=== PATIENT | female | born 1950 | race African-American/Black ===

== ENCOUNTER 2020-01-05 11:09 | Outpatient (REF) | payer MEDICARE, MEDICAID, SELFPAY ==
[2020-01-05 13:47] LABS: Hematocrit 37.3 % (37-47); Mean Corpuscular HGB Conc 32.2 g/dl (31.0-35.0); Mean Corpuscular Hemoglobin 29.9 pg (27.0-33.0); Mean Platelet Volume 9.4 fL (9.4-12.3); Platelet Count 224 X10*3/uL (160-400); Red Blood Count 4.01 X10*6/uL (4.20-5.50); Red Cell Distribution Width 13.2 % (11.0-16.0); White Blood Count 3.9 X10*3/uL (4.8-10.8)
[2020-01-05 14:23] LABS: Alanine Aminotransferase 25 U/L (0-31); Albumin Level 4.8 g/dL (3.5-5.0); Alkaline Phosphatase 67 U/L (39-117); Anion Gap 16 (12-20); Aspartate Amino Transferase 25 U/L (5-31); Bilirubin Direct < 0.2 mg/dL (0.0-0.5); Bilirubin Total 0.2 mg/dL (0.0-1.0); Blood Urea Nitrogen 22 mg/dL (9-16); Calcium 10.4 mg/dL (8.4-10.2); Carbon Dioxide 27 mmol/L (22-29); Chloride 100 mmol/L (96-108); Cholesterol 165 mg/dL; Estimated Glomerular Filt Rate 57; Glucose Random 80 mg/dL (60-115); HDL Cholesterol 37 mg/dL; LDL Cholesterol Calculated 85 mg/dl; Potassium 4.5 mmol/l (3.3-5.1); Sodium 138 mmol/L (135-145); Total Protein 8.1 g/dL (6.5-8.0); Triglycerides 218 mg/dL
[2020-01-05 14:53] LABS: Estimated Average Glucose 157 mg/dL; Hemoglobin A1c % 7.1 %
== END 2020-01-05 11:10 | disposition home or self-care (01) ==
LOC: HO.10HDL 11:09
PROVIDERS: Visit Provider Internal Medicine
DX: E11.42 Type 2 diabetes mellitus with diabetic polyneuropathy (principal); E78.00 Pure hypercholesterolemia, unspecified; I50.20 Unspecified systolic (congestive) heart failure
CPT/HCPCS: 36415; 80048; 80061; 80076; 83036; 85027

== ENCOUNTER → 2020-03-28 08:12 | Outpatient (REF) | payer MEDICARE, MEDICAID, SELFPAY ==
--- NOTE | 2020-03-28 08:30 | CA_ITS ---
Transthoracic Echocardiogram Patient (Last, First, Middle): Mihaela Erazo T Gender: Female Date of : 1950 Age: 69 Procedure Date: 03/28/2020 Procedure Type: Transthoracic Echocardiogram Location: OP Height: 157.48 cm Weight: 51.71 kg BSA: 1.51 m2 Heart Rate: bpm BP: 128 / 68 mmHg Aerodynamics Professor: Referring MD: Narinder Kramer MD Bait Painter: Kirk Carmona MD Symptoms: I25.5 ISCHEMIC CARDIOMYOPATHY Study Quality: Fair ECG Rhythm: Sinus Conclusions: - 1. Severe LV systolic dysfunction with LVEF of 10-15% with regional wall motion of the in the LAD territory consistent with prior infarction with impaired relaxation filling pattern 2. Normal cardiac valvular Doppler 3. Normal RV systolic pressure 4. No pericardial effusion Findings Left Ventricle Normal left ventricular cavity size. There is normal left ventricular wall thickness. The left ventricular systolic function is severely decreased. The visually estimated ejection fraction is between 10-15%. There is evidence of regional wall motion abnormalities. Spectral Doppler is indicative of an impaired relaxation filling pattern. E/E prime ratio is between 8 and 15 consistent with indeterminate filling pressures. Wall Motion Rest Echo Findings The basal inferoseptal segment is hypokinetic. The anteroseptal wall, the apical anterior, apical inferior, mid anterior, apical lateral, and mid inferoseptal segments are akinetic. The apex segment is dyskinetic. All other scored wall segments showed normal motion. Right Ventricle Normal right ventricular cavity size and systolic function. There is an ICD wire seen in the right ventricle. Atria Both atria are normal in size. There is no evidence of interatrial shunt. Aortic Valve The aortic valve structure and function is likely normal. There is no aortic valve stenosis. There is no aortic valve regurgitation. Mitral Valve There is mild anterior and posterior mitral leaflet thickening. There is trace mitral valve regurgitation. There is no mitral valve stenosis. Pulmonic Valve The pulmonic valve was not well visualized. Tricuspid Valve Likely normal tricuspid valve structure and function. There is mild tricuspid valve regurgitation. The right ventricular systolic pressure is normal. The right ventricular systolic pressure is 26 mmHg. There is no evidence of pulmonary hypertension. Great Vessels All visible segments of the aorta are normal in size. The pulmonary artery was not well visualized. Venous The inferior vena cava is normal in size and collapses greater than 50% with inspiration. Pericardium/Pleural There is no evidence of pericardial effusion. Prior Study Comparison No significant change compared to prior study dated: 11/07/2018. Measurements 2D Linear Measurements IVSd: 0.90 0.6-0.9/0.6-1.0 cm LVIDd: 5.01 3.9-5.3/4.2-5.9 cm LVIDd Index: 3.32 2.4-3.2/2.2-3.1 cm/m2 LVIDs: 4.44 2.0-3.6 cm LVPWd: 0.77 0.7-1.1 cm Ao Root: 2.90 2.1-3.5 cm LA Diam: 3.80 2.7-3.8/3.0-4.0 cm LAIDs Index: 2.52 1.5-2.3 cm/m2 LV Mass: 178.66 67-162/88-224 g LV Mass Index: 118.32 43-95/49-115 g/m2 LVOT Diam: 2.10 3.0+(-)1.3 cm Mitral Valve MV Pk E: 0.38 MV PK A: 0.90 MV Decel Time: 190.00 E/A: 0.40 E'Lateral: 13.70 E'Medial: 2.90 E/E' Med: 13.20 E/E' Lat: 2.80 PHT: 56.00 MVA PHT: 3.93 Decel Snyder: 2.02 Aortic Valve AoV Pk Thony: 1.43 AoV Mn Thony: 1.04 AoV VTI: 0.33 AoV Pk Grad: 8.00 Aov Mn Grad: 5.00 RASHIDA Cont.VTI: 2.13 LVOT LVOT Pk Thony: 0.92 LVOT Mn Thony: 0.53 LVOT VTI: 0.20 LVOT Pk Grad: 3.00 LVOT Mn Grad: 1.00 LVOT Diam: 2.10 LVOT Area: 3.46 Diastolic Function MV Pk E: 0.38 MV Pk A: 0.90 E/A: 0.40 E'Medial: 2.90 E/E' Med: 13.20 E' Laterial: 13.70 E/E' Lat: 2.80 Tricuspid Valve TR Pk Thony: 2.38 TR Pk Grad: 23.00 RA Press: 3.00 RVSP: 26.00 Great Vessels Aorta Ao Root-2D: 2.90 2.0-3.7 cm Pulmonary Valve PV Pk Thony: 0.98 Peak PV Grad: 4.00 Updated in Other Vendor System with Status of Final Kirk Carmona MD electronically signed on 03/28/2020 6:01:21 PM with status of Final
== END ==
LOC: HO.CARD 08:12
PROVIDERS: Visit Provider Internal Medicine
DX: I25.5 Ischemic cardiomyopathy (principal)
CPT/HCPCS: 93306

== ENCOUNTER → 2020-04-11 13:37 | Outpatient (BNVA) | payer MEDICARE, MEDICAID, SELFPAY | PROVIDERS: PCP Internal Medicine; Referring Provider Internal Medicine; Visit Provider Internal Medicine | DX: Z76.89 Persons encountering health services in other specified circumstances (principal) | CPT/HCPCS: Q3014 ==

== ENCOUNTER 2020-05-12 08:48 | Outpatient (REF) | payer MEDICARE, MEDICAID, SELFPAY ==
--- NOTE | ~2020-05-12 | MM_ITS ---
EXAMINATION: MM SCREENING DIGITAL BREAST TOMOSYNTHESIS, BILATERAL CLINICAL INFORMATION: Screening. Asymptomatic. The lifetime risk of breast cancer based on the Tyrer-Cuzick Model is 3.5%. COMPARISON: Mammography: May 07, 2019 and studies dating back to January 21, 2012 TECHNIQUE: Digital breast tomosynthesis is performed in both the craniocaudal and mediolateral oblique views along with computer-aided detection (CAD). Synthesized 2D images are generated from the tomosynthesis. FINDINGS: There are scattered areas of fibroglandular density (ACR BI-RADS breast composition Category b). There are no significant masses, abnormal calcifications, or other abnormalities. MM/MM tomosynthesis screening BI IMPRESSION: There are no significant changes from prior study. ASSESSMENT: BI-RADS 1: Negative RECOMMENDATION: Routine annual mammography screening. This patient's information was entered into a reminder system with a target due date for their next mammogram.
== END 2020-05-12 08:49 | disposition home or self-care (01) ==
LOC: HO.MAMMO 08:48
PROVIDERS: PCP Internal Medicine; Visit Provider Internal Medicine
DX: Z12.31 Encounter for screening mammogram for malignant neoplasm of breast (principal)
CPT/HCPCS: 77063; 77067

== ENCOUNTER → 2020-09-12 13:06 | Outpatient (BNVA) | payer MEDICARE, MEDICAID, SELFPAY | PROVIDERS: PCP Internal Medicine; Referring Provider Internal Medicine; Visit Provider Internal Medicine | DX: Z45.02 Encounter for adjustment and management of automatic implantable cardiac defibrillator (principal); I25.5 Ischemic cardiomyopathy; I25.10 Atherosclerotic heart disease of native coronary artery without angina pectoris; I10 Essential (primary) hypertension; E11.8 Type 2 diabetes mellitus with unspecified complications | CPT/HCPCS: 93005; 99212 ==

== ENCOUNTER 2020-09-21 07:34 | Outpatient (REF) | payer MEDICARE, MEDICAID, SELFPAY ==
[2020-09-21 10:15] LABS: Hematocrit 37.6 % (37-47); Mean Corpuscular HGB Conc 31.9 g/dl (31.0-35.0); Mean Corpuscular Hemoglobin 29.1 pg (27.0-33.0); Mean Platelet Volume 9.4 fL (9.4-12.3); Platelet Count 231 X10*3/uL (160-400); Red Blood Count 4.13 X10*6/uL (4.20-5.50); Red Cell Distribution Width 12.6 % (11.0-16.0); White Blood Count 3.9 X10*3/uL (4.8-10.8)
[2020-09-21 10:18] LABS: Estimated Average Glucose 177 mg/dL; Hemoglobin A1c % 7.8 %
[2020-09-21 10:40] LABS: Alanine Aminotransferase 32 U/L (0-31); Albumin Level 4.7 g/dL (3.5-5.0); Alkaline Phosphatase 67 U/L (39-117); Anion Gap 14 (12-20); Aspartate Amino Transferase 29 U/L (5-31); Bilirubin Direct 0.2 mg/dL (0.0-0.5); Bilirubin Total 0.5 mg/dL (0.0-1.0); Blood Urea Nitrogen 16 mg/dL (9-16); Calcium 10.2 mg/dL (8.4-10.2); Carbon Dioxide 25 mmol/L (22-29); Chloride 103 mmol/L (96-108); Cholesterol 95 mg/dL; Estimated Glomerular Filt Rate 53; Glucose Random 124 mg/dL (60-115); HDL Cholesterol 29 mg/dL; LDL Cholesterol Calculated 42 mg/dl; Potassium 4.4 mmol/L (3.3-5.1); Sodium 138 mmol/L (135-145); Total Protein 7.9 g/dL (6.5-8.0); Triglycerides 122 mg/dL
[2020-09-21 10:57] LABS: Thyroid Stimulating Hormone 0.97 uIU/mL (0.32-4.0)
[2020-09-21 11:24] LABS: Folate > 20.0 ng/mL (> or = 4.0); Vitamin B12 > 2000 pg/mL (200-900)
[2020-09-24 19:12] LABS: Vitamin D 25-OH, D2 <4 ng/mL; Vitamin D 25-OH, D3 38 ng/mL; Vitamin D 25-OH, Total 38 ng/mL (30-100)
== END 2020-09-21 07:35 | disposition home or self-care (01) ==
LOC: HO.10HDL 07:34
PROVIDERS: Visit Provider Internal Medicine
DX: E11.42 Type 2 diabetes mellitus with diabetic polyneuropathy (principal); I25.10 Atherosclerotic heart disease of native coronary artery without angina pectoris
CPT/HCPCS: 36415; 80048; 80061; 80076; 82306; 82607; 82746; 83036; 84443; 85027

== ENCOUNTER 2020-10-04 07:38 | Outpatient (REF) | payer MEDICARE, MEDICAID, SELFPAY ==
[2020-10-04 10:45] LABS: Alanine Aminotransferase 27 U/L (0-31); Albumin Level 4.6 g/dL (3.5-5.0); Alkaline Phosphatase 67 U/L (39-117); Aspartate Amino Transferase 27 U/L (5-31); Bilirubin Direct < 0.2 mg/dL (0.0-0.5); Bilirubin Total 0.4 mg/dL (0.0-1.0); Cholesterol 90 mg/dL; HDL Cholesterol 37 mg/dL; LDL Cholesterol Calculated 37 mg/dl; Total Protein 7.8 g/dL (6.5-8.0); Triglycerides 80 mg/dL
== END 2020-10-04 07:39 | disposition home or self-care (01) ==
LOC: HO.10HDL 07:38
PROVIDERS: Visit Provider Internal Medicine
DX: I25.10 Atherosclerotic heart disease of native coronary artery without angina pectoris (principal)
CPT/HCPCS: 36415; 80061; 80076

== ENCOUNTER → 2021-02-22 09:13 | Outpatient (BNVA) | payer MEDICARE, MEDICAID, SELFPAY | PROVIDERS: PCP Internal Medicine; Referring Provider Internal Medicine; Visit Provider Internal Medicine | DX: I25.5 Ischemic cardiomyopathy (principal); I25.10 Atherosclerotic heart disease of native coronary artery without angina pectoris; I10 Essential (primary) hypertension; E11.8 Type 2 diabetes mellitus with unspecified complications; Z95.810 Presence of automatic (implantable) cardiac defibrillator | CPT/HCPCS: 99212 ==

== ENCOUNTER → 2021-03-01 09:15 | Outpatient (BNVA) | payer MEDICARE, MEDICAID, SELFPAY | PROVIDERS: Referring Provider Internal Medicine; Visit Provider Nurse Practitioner Family | DX: Z12.11 Encounter for screening for malignant neoplasm of colon (principal); I25.10 Atherosclerotic heart disease of native coronary artery without angina pectoris | CPT/HCPCS: 99202 ==

== ENCOUNTER 2021-04-03 08:40 | Outpatient (REF) | payer MEDICARE, MEDICAID, SELFPAY ==
--- NOTE | ~2021-04-03 | XR_ITS ---
EXAMINATION: XR KNEES BILATERAL STANDING XR KNEE RIGHT CLINICAL INFORMATION: Pain COMPARISON: None TECHNIQUE: AP standing view both knees Right knee, sunrise and lateral views FINDINGS: AP STANDING VIEW OF BOTH KNEES At the left knee, there is mild narrowing of lateral tibiofemoral joint space. Osteophytes are present at tibiofemoral compartments and there is a subchondral cyst at the medial aspect of the medial tibial plateau. At the right knee, there is mild loss of lateral tibiofemoral joint space. Marginal osteophytes are present at the medial tibiofemoral compartment. There are atherosclerotic calcifications of bilateral femoral, popliteal and lower leg vessels. RIGHT KNEE, SUNRISE AND LATERAL VIEWS Trace knee joint effusion is present. Small osteophytes of patellofemoral and tibial femoral compartments. Patella is properly located within the trochlear groove. 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 * Mild tricompartmental osteoarthritis of the RIGHT knee.
--- NOTE | ~2021-04-03 | XR_ITS ---
EXAMINATION: XR KNEES BILATERAL STANDING XR KNEE RIGHT CLINICAL INFORMATION: Pain COMPARISON: None TECHNIQUE: AP standing view both knees Right knee, sunrise and lateral views FINDINGS: AP STANDING VIEW OF BOTH KNEES At the left knee, there is mild narrowing of lateral tibiofemoral joint space. Osteophytes are present at tibiofemoral compartments and there is a subchondral cyst at the medial aspect of the medial tibial plateau. At the right knee, there is mild loss of lateral tibiofemoral joint space. Marginal osteophytes are present at the medial tibiofemoral compartment. There are atherosclerotic calcifications of bilateral femoral, popliteal and lower leg vessels. RIGHT KNEE, SUNRISE AND LATERAL VIEWS Trace knee joint effusion is present. Small osteophytes of patellofemoral and tibial femoral compartments. Patella is properly located within the trochlear groove. 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 * Mild tricompartmental osteoarthritis of the RIGHT knee.
== END 2021-04-03 08:41 | disposition home or self-care (01) ==
LOC: HO.HOSX 08:40
PROVIDERS: Visit Provider Orthopaedic Surgery
DX: M17.11 Unilateral primary osteoarthritis, right knee (principal); E11.9 Type 2 diabetes mellitus without complications; Z95.810 Presence of automatic (implantable) cardiac defibrillator
CPT/HCPCS: 73560; 73565; 99202

== ENCOUNTER → 2021-04-06 14:08 | Outpatient (BNVA) | payer MEDICARE, MEDICAID, SELFPAY | PROVIDERS: PCP Internal Medicine; Visit Provider Orthopaedic Surgery | DX: M16.11 Unilateral primary osteoarthritis, right hip (principal); M17.11 Unilateral primary osteoarthritis, right knee; E11.42 Type 2 diabetes mellitus with diabetic polyneuropathy; I25.10 Atherosclerotic heart disease of native coronary artery without angina pectoris | CPT/HCPCS: 20610; 99212; J1100 ==

== ENCOUNTER → 2021-04-28 10:44 | Outpatient (BNVA) | payer MEDICARE, MEDICAID, SELFPAY | PROVIDERS: PCP Internal Medicine; Visit Provider Orthopaedic Surgery | DX: E11.42 Type 2 diabetes mellitus with diabetic polyneuropathy (principal); I50.20 Unspecified systolic (congestive) heart failure; M16.11 Unilateral primary osteoarthritis, right hip; M17.11 Unilateral primary osteoarthritis, right knee | CPT/HCPCS: 99212 ==

== ENCOUNTER 2021-05-15 07:40 | Outpatient (REF) | payer MEDICARE, MEDICAID, SELFPAY ==
--- NOTE | ~2021-05-15 | MM_ITS ---
EXAMINATION: MM SCREENING DIGITAL BREAST TOMOSYNTHESIS, BILATERAL CLINICAL INFORMATION: Screening. Asymptomatic. The lifetime risk of breast cancer based on the Tyrer-Cuzick Model is 3%. COMPARISON: Mammography: 05/12/2020, 05/07/2019, 05/01/2018 TECHNIQUE: Digital breast tomosynthesis is performed in both the craniocaudal and mediolateral oblique views along with computer-aided detection (CAD). Synthesized 2D images are generated from the tomosynthesis. FINDINGS: There are scattered areas of fibroglandular density (ACR BI-RADS breast composition Category b). There are no significant masses, abnormal calcifications, or other abnormalities. Parenchymal pattern is similar to prior studies. There is a pacemaker generator overlying and partly obscuring posterior left axilla on MLO view. There are 2 incidental intramammary nodes again seen upper outer quadrant left breast. A dermal lesion overlies upper right breast on MLO view. No significant changes. MM/MM tomosynthesis screening BI IMPRESSION: No mammographic evidence of malignancy. ASSESSMENT: BI-RADS 2: Benign RECOMMENDATION: Routine annual mammography screening. This patient's information was entered into a reminder system with a target due date for their next mammogram.
== END 2021-05-15 07:41 | disposition home or self-care (01) ==
LOC: HO.MAMMO 07:40
PROVIDERS: PCP Internal Medicine; Visit Provider Internal Medicine
DX: Z12.31 Encounter for screening mammogram for malignant neoplasm of breast (principal)
CPT/HCPCS: 77063; 77067

== ENCOUNTER 2021-06-28 10:20 | Outpatient (REF) | payer MEDICARE, MEDICAID, SELFPAY ==
[2021-06-28 13:00] LABS: Hematocrit 38.9 % (37.0-47.0); Hemoglobin 12.3 g/dl (12.0-16.0); Mean Corpuscular HGB Conc 31.6 g/dl (31.0-35.0); Mean Corpuscular Hemoglobin 29.3 pg (27.0-33.0); Mean Corpuscular Volume 92.6 fL (80.0-98.0); Mean Platelet Volume 9.5 fL (9.4-12.3); Platelet Count 222 X10*3/uL (160-400); Red Cell Distribution Width 13.1 % (11.0-16.0); White Blood Count 4.1 X10*3/uL (4.8-10.8)
[2021-06-28 13:15] LABS: Alanine Aminotransferase 31 U/L (0-31); Albumin Level 4.6 g/dL (3.5-5.0); Alkaline Phosphatase 76 U/L (39-117); Anion Gap 15 (12-20); Aspartate Amino Transferase 27 U/L (5-31); Bilirubin Direct < 0.2 mg/dL (0.0-0.5); Bilirubin Total 0.3 mg/dL (0.0-1.0); Blood Urea Nitrogen 19 mg/dL (9-16); Calcium 10.5 mg/dL (8.4-10.2); Carbon Dioxide 28 mmol/L (22-29); Chloride 99 mmol/L (96-108); Cholesterol 108 mg/dL; Estimated Glomerular Filt Rate 50; Glucose Random 167 mg/dL (60-115); HDL Cholesterol 37 mg/dL; LDL Cholesterol Calculated 37 mg/dl; Potassium 4.7 mmol/L (3.3-5.1); Sodium 137 mmol/L (135-145); Total Protein 7.8 g/dL (6.5-8.0); Triglycerides 173 mg/dL
[2021-06-28 13:39] LABS: Creatinine Urine 56.21 mg/dL; Microalbum/Creatinine Ratio Ur 8.8 ug/mg cr
[2021-06-28 13:39] LABS: Thyroid Stimulating Hormone 1.15 uIU/mL (0.32-4.0)
[2021-06-28 13:56] LABS: Estimated Average Glucose 163 mg/dL; Hemoglobin A1c % 7.3 %
== END 2021-06-28 10:21 | disposition home or self-care (01) ==
LOC: HO.10HDL 10:20
PROVIDERS: Visit Provider Internal Medicine
DX: E11.42 Type 2 diabetes mellitus with diabetic polyneuropathy (principal); M16.11 Unilateral primary osteoarthritis, right hip
CPT/HCPCS: 36415; 80048; 80061; 80076; 82043; 83036; 84443; 85027

== ENCOUNTER → 2021-07-05 10:57 | Outpatient (BNVA) | payer MEDICARE, MEDICAID, SELFPAY | PROVIDERS: PCP Internal Medicine; Visit Provider Anesthesiology | DX: M16.11 Unilateral primary osteoarthritis, right hip (principal); M17.11 Unilateral primary osteoarthritis, right knee; I50.20 Unspecified systolic (congestive) heart failure; E11.42 Type 2 diabetes mellitus with diabetic polyneuropathy | CPT/HCPCS: 99202 ==

== ENCOUNTER 2021-07-27 07:15 | Outpatient (REF) | payer MEDICARE, MEDICAID, SELFPAY ==
--- NOTE | ~2021-07-27 | XR_ITS ---
EXAMINATION: XR PELVIS CLINICAL INFORMATION: Pain in unspecified hip. COMPARISON: Right hip x-rays of 09/29/2018. TECHNIQUE: AP view of the pelvis. FINDINGS: Severe osteoarthritic changes in the right hip are again noted with interval worsening compared to previous x-rays of 09/29/2018. There is near-complete obliteration of the hip joint space with probable partial fusion. Deformity of the acetabular and femoral articular surfaces with significant irregularity and subarticular sclerotic and cystic changes as well as marginal osteophytic changes are noted. The left femoral head is well seated in the respective acetabulum. No significant degenerative/osteoarthritic changes are noted at the left hip joint. Symphysis pubis is intact. Limited evaluation of the sacroiliac joints is unremarkable. There is abnormal appearance of the left femoral greater trochanter with lobulated lucent appearance with curvilinear sclerotic densities. Lower lumbar spondylosis is noted. XR/XR pelvis 1-2V IMPRESSION: 1. Severe osteoarthritic changes at the right hip with interval worsening since the previous study of 2019. 2. Abnormal appearance of the left femoral greater trochanter. The differential possibilities may include osteochondroma in the region of trochanter versus prominent enthesophyte formation at greater trochanter, reactive to chronic trochanteric bursitis. Recommend clinical correlation. There are no pertinent prior studies available at this institution for comparison. As clinically deemed necessary, correlation with MRI (without and with contrast) may be considered for further evaluation. 3. No acute osseous abnormality.
== END 2021-07-27 07:16 | disposition home or self-care (01) ==
LOC: HO.HOSX 07:15
PROVIDERS: Visit Provider Orthopaedic Surgery
DX: M16.11 Unilateral primary osteoarthritis, right hip (principal); M17.11 Unilateral primary osteoarthritis, right knee; M21.061 Valgus deformity, not elsewhere classified, right knee; E11.42 Type 2 diabetes mellitus with diabetic polyneuropathy
CPT/HCPCS: 72170; 99212

== ENCOUNTER → 2021-08-07 08:18 | Outpatient (BNVA) | payer MEDICARE, MEDICAID, SELFPAY | PROVIDERS: PCP Internal Medicine; Referring Provider Internal Medicine; Visit Provider Nurse Practitioner Family | DX: Z12.11 Encounter for screening for malignant neoplasm of colon (principal) | CPT/HCPCS: 99212 ==

== ENCOUNTER 2021-08-25 06:25 | Outpatient (REF) | payer MEDICARE, MEDICAID, SELFPAY ==
--- NOTE | ~2021-08-25 | FL_ITS ---
EXAMINATION: XR FLUOROSCOPY WITH IMAGES CLINICAL INFORMATION: Right hip osteoarthritis. COMPARISON: 07/27/2021 TECHNIQUE: Fluoroscopy performed by Dr. Basim Villalta. Fluoroscopy time: 0.3 minutes DAP: 0.558 Gy-cm2 Images: 1 FINDINGS: Needle and contrast is seen within the right hip joint. FL/FL guidance in treatment room IMPRESSION: Intraoperative fluoroscopy for pain management procedure.
== END 2021-08-25 06:26 | disposition home or self-care (01) ==
LOC: HO.RADIR 06:25
PROVIDERS: Visit Provider Internal Medicine
DX: M16.11 Unilateral primary osteoarthritis, right hip (principal)
CPT/HCPCS: 20610; J3300

== ENCOUNTER → 2021-08-29 09:00 | Outpatient (BNVA) | payer MEDICARE, MEDICAID, SELFPAY | PROVIDERS: PCP Internal Medicine; Referring Provider Internal Medicine; Visit Provider Internal Medicine | DX: Z01.810 Encounter for preprocedural cardiovascular examination (principal); I25.10 Atherosclerotic heart disease of native coronary artery without angina pectoris; I25.2 Old myocardial infarction; I10 Essential (primary) hypertension; E11.8 Type 2 diabetes mellitus with unspecified complications; Z95.810 Presence of automatic (implantable) cardiac defibrillator | CPT/HCPCS: 93005; 99212 ==

== ENCOUNTER → 2021-09-25 09:32 | Outpatient (BNVA) | payer MEDICARE, MEDICAID, SELFPAY | PROVIDERS: PCP Internal Medicine; Visit Provider Anesthesiology | DX: M16.11 Unilateral primary osteoarthritis, right hip (principal); M17.11 Unilateral primary osteoarthritis, right knee; E11.42 Type 2 diabetes mellitus with diabetic polyneuropathy; I50.20 Unspecified systolic (congestive) heart failure | CPT/HCPCS: 99212 ==

== ENCOUNTER → 2022-04-09 14:10 | Outpatient (BNVA) | payer MEDICARE, MEDICAID, SELFPAY | PROVIDERS: PCP Internal Medicine; Referring Provider Internal Medicine; Visit Provider Internal Medicine | DX: I25.5 Ischemic cardiomyopathy (principal); I25.10 Atherosclerotic heart disease of native coronary artery without angina pectoris; I10 Essential (primary) hypertension; E11.8 Type 2 diabetes mellitus with unspecified complications; Z95.810 Presence of automatic (implantable) cardiac defibrillator | CPT/HCPCS: 99212 ==

== ENCOUNTER 2022-05-21 07:40 | Outpatient (REF) | payer MEDICARE, MEDICAID, SELFPAY ==
--- NOTE | ~2022-05-21 | MM_ITS ---
EXAMINATION: MM SCREENING DIGITAL BREAST TOMOSYNTHESIS, BILATERAL CLINICAL INFORMATION: Screening. Asymptomatic. The lifetime risk of breast cancer based on the Tyrer-Cuzick Model is 2%. COMPARISON: Mammography: 05/15/2021, 05/12/2020, 05/07/2019 TECHNIQUE: Digital breast tomosynthesis is performed in both the craniocaudal and mediolateral oblique views along with computer-aided detection (CAD). Synthesized 2D images are generated from the tomosynthesis. Additional left MLO view is provided. FINDINGS: There are scattered areas of fibroglandular density (ACR BI-RADS breast composition Category b). There are no significant masses, abnormal calcifications, or other abnormalities. No architectural abnormality or developing density or significant change from prior studies. Again, there are 2 incidental intramammary nodes mid to posterior upper outer left breast. Pacemaker generator overlies and partly areas left axilla on MLO view. No significant changes. MM/MM tomosynthesis screening BI IMPRESSION: No mammographic evidence of malignancy. ASSESSMENT: BI-RADS 2: Benign RECOMMENDATION: Routine annual mammography screening. This patient's information was entered into a reminder system with a target due date for their next mammogram.
== END 2022-05-21 07:41 | disposition home or self-care (01) ==
LOC: HO.MAMMO 07:40
PROVIDERS: PCP Internal Medicine; Visit Provider Internal Medicine
DX: Z12.31 Encounter for screening mammogram for malignant neoplasm of breast (principal)
CPT/HCPCS: 77063; 77067

== ENCOUNTER → 2022-08-27 08:23 | Outpatient (REF) | payer MEDICARE, MEDICAID, SELFPAY ==
--- NOTE | 2022-08-27 08:29 | CA_ITS ---
Transthoracic Echocardiogram Patient (Last, First, Middle): Mihaela Erazo, Gender: Female Date of : 1950 Age: 72 Procedure Date: 08/27/2022 Procedure Type: Transthoracic Echocardiogram Location: OP Height: 210.82 cm Weight: 66.23 kg BSA: 2.07 m2 Heart Rate: bpm BP: 100 / 70 mmHg Focusing Machine Operator: NEHEMIAH Referring MD: Narinder Kramer MD Route Driver Coin Machines: Kirk Carmona MD Symptoms: I25.5 - Ischemic cardiomyopathy Study Quality: Adequate with contrast Conclusions: - 1. Severe LV systolic dysfunction with LVEF of 15-20% with large area of wall motion abnormality in the LAD territory consistent with prior myocardial infarction in overall findings consistent with ischemic cardiomyopathy with impaired relaxation filling pattern 2. Mild mitral regurgitation 3. Normal RV systolic pressure 4. No gross pericardial effusion Findings Procedure Information Contrast agent, definity, is being given per protocol without apparent complications. Left Ventricle Normal left ventricular cavity size. There is normal left ventricular wall thickness. The left ventricular systolic function is severely decreased. The visually estimated ejection fraction is between 15-20%. There is evidence of regional wall motion abnormalities. Spectral Doppler is indicative of an impaired relaxation filling pattern. E/E prime ratio is between 8 and 15 consistent with indeterminate filling pressures. There is no evidence of a thrombus in the left ventricle. Wall Motion Rest Echo Findings The anterolateral wall, inferolateral wall, the basal inferior, basal anterior, and mid inferior segments are hypokinetic. The entire septum, the apical anterior, apical inferior, mid anterior, and apical lateral segments are akinetic. The apex segment is dyskinetic. Right Ventricle Normal right ventricular cavity size and systolic function. There is an ICD wire seen in the right ventricle. Atria The left atrium is normal in size. There is no evidence of interatrial shunt. The right atrium is normal in size. Aortic Valve There is mild calcification of the aortic valve. There is no aortic valve stenosis. There is no aortic valve regurgitation. Mitral Valve Normal mitral valve structure and function. There is mild mitral valve regurgitation. There is no mitral valve stenosis. Pulmonic Valve The pulmonic valve is likely normal. Tricuspid Valve Normal tricuspid valve structure. There is trace tricuspid valve regurgitation. The right ventricular systolic pressure is normal. The right ventricular systolic pressure is 19 mmHg. Normal right atrial pressure. There is no evidence of pulmonary hypertension. Great Vessels All visible segments of the aorta are normal in size. The pulmonary artery was not well visualized. Venous The inferior vena cava is normal in size and collapses greater than 50% with inspiration. Pericardium/Pleural There is no evidence of pericardial effusion. Prior Study Comparison No significant change compared to prior study dated: 03/28/2020. Measurements 2D Linear Measurements IVSd: 0.73 0.6-0.9/0.6-1.0 cm LVIDd: 5.46 3.9-5.3/4.2-5.9 cm LVIDd Index: 2.64 2.4-3.2/2.2-3.1 cm/m2 LVIDs: 4.67 2.0-3.6 cm LVPWd: 0.89 0.7-1.1 cm LA Diam: 3.20 2.7-3.8/3.0-4.0 cm LAIDs Index: 1.55 1.5-2.3 cm/m2 LV Mass: 199.34 67-162/88-224 g LV Mass Index: 96.30 43-95/49-115 g/m2 LVOT Diam: 2.00 3.0+(-)1.3 cm 2D Systolic Function EF 4C: 17.40 >55% EF 2C: 25.70 >55% Mitral Valve MV Pk E: 0.38 MV PK A: 0.81 MV Decel Time: 275.00 E/A: 0.50 E'Lateral: 5.55 E'Medial: 3.92 E/E' Med: 9.80 E/E' Lat: 6.90 PHT: 80.00 MVA PHT: 2.75 Decel [place]: 1.40 Aortic Valve AoV Pk Thony: 1.18 AoV Mn Thony: 0.87 AoV VTI: 0.25 AoV Pk Grad: 6.00 Aov Mn Grad: 3.00 RASHIDA Cont.VTI: 2.23 LVOT LVOT Pk Thony: 0.94 LVOT Mn Thony: 0.63 LVOT VTI: 0.18 LVOT Pk Grad: 4.00 LVOT Mn Grad: 2.00 LVOT Diam: 2.00 LVOT Area: 3.14 Diastolic Function MV Pk E: 0.38 MV Pk A: 0.81 E/A: 0.50 E'Medial: 3.92 E/E' Med: 9.80 E' Laterial: 5.55 E/E' Lat: 6.90 Right Ventricle TAPSE (mm): 18.70 TVS' Thony: 9.79 Tricuspid Valve TR Pk Thony: 2.01 TR Pk Grad: 16.00 RA Press: 3.00 RVSP: 19.00 Great Vessels Aorta Sinus of Valsalva: 2.88 2.0-3.[address] [place]: 2.29 1.7-3.4 cm Ao Asc: 3.00 2.1-3.4 cm Updated in Other Vendor System with Status of Final Kirk Carmona MD electronically signed on 08/28/2022 11:17:20 AM with status of Final
== END ==
LOC: HO.CARD 08:23
PROVIDERS: PCP Internal Medicine; Visit Provider Internal Medicine
DX: I25.5 Ischemic cardiomyopathy (principal)
CPT/HCPCS: 93306; Q9957

== ENCOUNTER 2022-09-10 07:53 | Outpatient (REF) | payer MEDICARE, MEDICAID, SELFPAY ==
[2022-09-10 10:33] LABS: Hematocrit 34.6 % (37.0-47.0); Hemoglobin 10.9 g/dl (12.0-16.0); Mean Corpuscular HGB Conc 31.5 g/dl (31.0-35.0); Mean Corpuscular Hemoglobin 28.6 pg (27.0-33.0); Mean Corpuscular Volume 90.8 fL (80.0-98.0); Mean Platelet Volume 9.3 fL (9.4-12.3); Platelet Count 306 X10*3/uL (160-400); Red Blood Count 3.81 X10*6/uL (4.20-5.50); Red Cell Distribution Width 13.5 % (11.0-16.0); White Blood Count 4.2 X10*3/uL (4.8-10.8)
[2022-09-10 11:16] LABS: Estimated Average Glucose 131 mg/dL; Hemoglobin A1c % 6.2 %
[2022-09-10 11:25] LABS: Alanine Aminotransferase 57 U/L (0-31); Albumin Level 4.2 g/dL (3.5-5.0); Alkaline Phosphatase 69 U/L (39-117); Anion Gap 14 (12-20); Aspartate Amino Transferase 37 U/L (5-31); Bilirubin Direct 0.1 mg/dL (0.0-0.5); Bilirubin Total 0.3 mg/dL (0.0-1.0); Blood Urea Nitrogen 18 mg/dL (9-16); Calcium 10.8 mg/dL (8.4-10.2); Carbon Dioxide 27 mmol/L (22-29); Chloride 101 mmol/L (96-108); Cholesterol 95 mg/dL; Estimated Glomerular Filt Rate 50; Glucose Random 82 mg/dL (60-115); HDL Cholesterol 34 mg/dL; LDL Cholesterol Calculated 45 mg/dl; Potassium 4.4 mmol/L (3.3-5.1); Sodium 138 mmol/L (135-145); Total Protein 8.1 g/dL (6.5-8.0); Triglycerides 83 mg/dL
== END 2022-09-10 07:54 | disposition home or self-care (01) ==
LOC: HO.10HDL 07:53
PROVIDERS: Visit Provider Internal Medicine
DX: E11.42 Type 2 diabetes mellitus with diabetic polyneuropathy (principal)
CPT/HCPCS: 36415; 80048; 80061; 80076; 83036; 85027; 93005; 99212

== ENCOUNTER → 2022-09-26 23:59 | Outpatient (BNV) | payer MEDICARE, MEDICAID, SELFPAY ==
--- NOTE | 2022-10-03 11:42 | A.OFFVIS_ITS ---
Intake Intake Visit Reasons: Remote HF Monitoring- [employer] Allergies No Known Allergies Allergy (Verified 09/27/22 10:35) [facility] Medical History Arthritis of right hip Atherosclerotic heart disease of [place] coronary artery without angina pectoris Borderline hypercholesterolemia Ischemic cardiomyopathy Presence of automatic (implantable) cardiac defibrillator Type 2 diabetes mellitus with diabetic polyneuropathy Unspecified systolic (congestive) heart failure Surgical History History of cardiac defibrillator placement History of heart artery stent History of implantable cardioverter-defibrillator (ICD) insertion History of placement of internal cardiac defibrillator Family History Father Medical history unknown Mother Medical history unknown Social History Housing: Apartment Alcohol intake: never Patient Tobacco Use Status: Never used Tobacco e-Cigarette/Vaping Use: Never Used Second Hand Smoke Exposure: No service: No Current occupational status: retired Cognitive needs: Yes (cane) Hearing needs: No Vision needs: Yes (glasses) Office Procedures Cardiac Device Check Cardiac Device Check Details: Date of service- 09/26/2022; based on impedance data and physiological variables, there is no evidence of worsening congestive heart failure. Patient activity 8% of the day. Adequate heart rate variability. No RV pacing. [id number] Cardiac Device Interrogation, cardio physiologic monitor Procedure code (CPT) selection complete Assessment & Plan Assessment & Plan (1) Ischemic cardiomyopathy: Code(s): I25.5 - Ischemic cardiomyopathy Coding Level of Care Code Procedure Only Diagnoses Ischemic cardiomyopathy I25.5 CPT Codes Cardiac Device Check - Cardiac Device 15: [id number] Cardiac Device Interrog ation, cardio physiologic monitor ([id number])
== END ==
PROVIDERS: PCP Internal Medicine; Visit Provider Internal Medicine
DX: I25.5 Ischemic cardiomyopathy (principal)
CPT/HCPCS: 93297

== ENCOUNTER → 2022-09-26 23:59 | Outpatient (BNV) | payer MEDICARE, MEDICAID, SELFPAY ==
--- NOTE | 2022-10-03 11:44 | A.OFFVIS_ITS ---
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 Borderline hypercholesterolemia Ischemic cardiomyopathy Presence of automatic (implantable) cardiac defibrillator Type 2 diabetes mellitus with diabetic polyneuropathy Unspecified systolic (congestive) heart failure Surgical History History of cardiac defibrillator placement History of heart artery stent History of implantable cardioverter-defibrillator (ICD) insertion History of placement of internal cardiac defibrillator Family History Father Medical history unknown Mother Medical history unknown Social History Housing: Apartment Alcohol intake: never Patient Tobacco Use Status: Never used Tobacco e-Cigarette/Vaping Use: Never Used Second Hand Smoke Exposure: No service: No Current occupational status: retired Cognitive needs: Yes (cane) Hearing needs: No Vision needs: Yes (glasses) Office Procedures Cardiac Device Check Cardiac Device Check Details: Date of service 09/26/2022; Battery voltage 3.11V; normal lead parameters; no treated VT/VF; normal ICD function. [id number] Cardiac Interrogation, implant defibrillator w/interim Procedure code (CPT) selection complete Assessment & Plan Assessment & Plan (1) Ischemic cardiomyopathy: Code(s): I25.5 - Ischemic cardiomyopathy Coding Level of Care Code Procedure Only Diagnoses Ischemic cardiomyopathy I25.5 CPT Codes Cardiac Device Check - Cardiac Device 13: [id number] Cardiac Interrogation, implant defibrillator w/interim ([id number])
== END ==
PROVIDERS: PCP Internal Medicine; Visit Provider Internal Medicine
DX: I25.5 Ischemic cardiomyopathy (principal); Z95.810 Presence of automatic (implantable) cardiac defibrillator
CPT/HCPCS: 93295

== ENCOUNTER 2022-09-27 09:52 | Outpatient (AMB) | payer MEDICARE, MEDICAID, SELFPAY ==
--- NOTE | 2022-09-27 10:06 | MHC.PC.OV ---
Vital Signs 09/27/22 10:08 Height 5 ft 4.5 in Weight 132 lb 2 oz BMI 22.3 BP 100/60 Blood Pressure Location Lt brachial Position Sitting Pulse 75 Pulse Source Pulse Oximeter Pulse Oximetry (%) 100 Oxygen Delivery Method Room Air Intake Visit Reasons: 6m follow up Intake Note: Patient is here to follow up on DM, Heart Failure, HTN, Osteoarthritis of right knee. Executive Compensation Analyst Required: No Typesetting Supervisor: Not Required per policy Accompanied by: Self / Same As Patient Allergies No Known Allergies Allergy (Verified 09/27/22 10:35) Medication List - Last Reconciled 09/27/22 by Carlos Garg MD aspirin (Adult Low Dose Aspirin) 81 mg PO DAILY blood sugar diagnostic ([employer] Mobile Ultra Test strips) As directed blood-glucose meter ([employer] Ultra2 Meter) As directed furosemide 20 mg PO DAILY gabapentin (Neurontin) 300 mg PO BID 90 days glimepiride 4 mg PO DAILY lancets ([employer]uch Delica Lancets) USE TO TEST DAILY lisinopril 10 mg PO DAILY meloxicam 15 mg PO DAILY metformin ER 750 mg PO BID metoprolol succinate ER 25 mg PO BID rosuvastatin 40 mg PO DAILY spironolactone 25 mg PO DAILY Tobacco use date assessed: 09/27/22 Fall risk assessment: No Falls in past year Last assessed Fall Risk: 09/27/22 Dental Screening Dental Screen Date: 09/27/22 Did you have a dental visit in the last 12 months?: Yes Did you have a dental problem in the last 6 months where you did not have access to dental care?: No Was dental information given to patient?: Patient has dentist HPI 6m follow up HPI Details 72-year-old female presents to the office for a sick visit. Patient is feeling tired. There was a in the family and patient at spent a lot of time cleaning up and taking care of the estate. Also her right knee has been bothering her. She now uses a cane to walk all the time. She has a limp while walking. Able to drive, but prefers not to drive at night. Able to function and do activities of daily living. [facility] Medical History Arthritis of right hip Atherosclerotic heart disease of [place] coronary artery without angina pectoris Borderline hypercholesterolemia Ischemic cardiomyopathy Presence of automatic (implantable) cardiac defibrillator Type 2 diabetes mellitus with diabetic polyneuropathy Unspecified systolic (congestive) heart failure Surgical History History of cardiac defibrillator placement History of heart artery stent History of implantable cardioverter-defibrillator (ICD) insertion History of placement of internal cardiac defibrillator Family History Father Medical history unknown Mother Medical history unknown Social History Housing: Apartment Alcohol intake: never Patient Tobacco Use Status: Never used Tobacco e-Cigarette/Vaping Use: Never Used Second Hand Smoke Exposure: No service: No Current occupational status: retired Cognitive needs: Yes (cane) Hearing needs: No Vision needs: Yes (glasses) Questionnaire Thrive Questionnaire Date Thrive assessed: 03/29/22 IDANA-7 AMB Questionnaire DIANA-7 Date DIANA - 7 assessed: 03/29/22 Source: Developed by Drs. Alonzo Hays, Cordelia Irby, Arthur Aden and colleagues, with an educational maciej from [employer]. Physical exam (Primary Care) Vital Signs: Last Vital Signs Pulse 75 09/27/22 10:08 BP 100/60 09/27/22 10:08 Pulse Ox 100 09/27/22 10:08 Oxygen Delivery Method Room Air 09/27/22 10:08 BMI result Body Mass Index 22.3 Tobacco/Smoking Status: Tobacco use Status Tobacco use date assessed 09/27/22 09/27/22 10:15 Patient Tobacco Use Status Never used Tobacco 09/27/22 10:15 e-Cigarette/Vaping Use Never Used 09/27/22 10:15 Thrive Assessment: Date of Thrive Assessment Date Thrive assessed 03/29/22 09/27/22 10:15 Const General: cooperative, healthy appearing and comfortable HENMT Head: Yes normal to inspection and Yes atraumatic Eyes General: appearance normal, both eyes and all related structures Neck Neck: Yes normal visual inspection and Yes full ROM Chest Chest palpation & inspection: normal inspection of the chest Resp Effort & Inspection: normal respiratory effort Auscultation: clear to auscultation bilaterally Cardio Jugular venous distension: no JVD Palpation: normal PMI Rate: regular rate Heart sounds: S1 normal heart sound present and S2 normal heart sound present GI Palpation (GI): Soft to palpation and Tenderness to palpation present (GI) Extrem Other: Right knee: Joint is slightly deformed and tender. General: Yes normal to inspection and Yes full ROM Assessment and Plan Assessment & Plan (1) Type 2 diabetes mellitus with diabetic polyneuropathy: Code(s): E11.42 - Type 2 diabetes mellitus with diabetic polyneuropathy Qualifiers: Diabetes mellitus long term care social worker insulin use: without long term care social worker use Qualified Code(s): E11.42 - Type 2 diabetes mellitus with diabetic polyneuropathy Plan: A1c has improved. Continue medications at same dosage. (2) Unspecified systolic (congestive) heart failure: Code(s): I50.20 - Unspecified systolic (congestive) heart failure Qualifiers: Heart failure chronicity: unspecified Qualified Code(s): I50.20 - Unspecified systolic (congestive) heart failure Plan: Condition appears stable. Continue medications at same dosage. (3) Osteoarthritis of right knee: Code(s): M17.11 - Unilateral primary osteoarthritis, right knee Plan: Patient ideally should have had surgery for the osteoarthritis. However, her cardiac condition precludes her from having the surgery. Coding Level of Care Code Est Pt Level 4 (83667) Diagnoses Type 2 diabetes mellitus with diabetic polyneuropathy E11.42 Diabetes mellitus long term care social worker insulin use: without mcc use Unspecified systolic (congestive) heart failure I50.20 Heart failure chronicity: unspecified Osteoarthritis of right knee M17.11
[2022-09-27 10:08] VITALS: BP 100/60; PULSE 75; O2SAT 100; BMI 22.3
== END 2022-09-27 10:41 | disposition home or self-care (01) ==
PROVIDERS: Visit Provider Internal Medicine
DX: E11.42 Type 2 diabetes mellitus with diabetic polyneuropathy (principal); I50.20 Unspecified systolic (congestive) heart failure; M17.11 Unilateral primary osteoarthritis, right knee
CPT/HCPCS: 99214

== ENCOUNTER 2022-10-05 09:22 | Outpatient (REF) | payer MEDICARE, MEDICAID, SELFPAY ==
--- NOTE | ~2022-10-05 | MM_ITS ---
EXAMINATION: BONE DENSITOMETRY CLINICAL INDICATION: Osteoporosis. COMPARISON: This is the patient's baseline examination. TECHNIQUE: Using a [employer] Interactive DXA System (software version: 13.1) manufactured by [employer], dual-energy x-ray absorptiometry was performed of the lumbar spine and left hip. The images are of good technical quality. Summary results are attached. FINDINGS: LEFT FEMUR, NECK: BMD 0.910 g/cm2, Z-score 0.2, T-score -0.9, normal. LEFT FEMUR, TOTAL: BMD 0.789 g/cm2, Z-score -0.9, T-score -1.7, osteopenia. AP SPINE L1-L4: BMD 1.325 g/cm2, Z-score 2.4, T-score 1.2, normal. IDENTIFIED RISK FACTORS: Early menopause, low body weight, secondary osteoporosis. HISTORY OF FRACTURE: None listed. MEDICATIONS: Calcium, vitamin D. MM/XR DEXA appendicular skeleton IMPRESSION: 1. DIAGNOSIS: Osteopenia based on the lowest T-score value of -1.7 in the total femur applying World Health Organization criteria. 2. 10-YEAR FRACTURE RISK PREDICTION, FRAX: Major osteoporotic fracture (clinical spine, forearm, hip or shoulder) 4.3%. Hip fracture 0.6%. 3. Treatment Recommendations: NOF guidelines recommend consideration for treatment in postmenopausal women and men age 50 and older presenting with the following: -A hip or vertebral (clinical or morphometric) fracture. -T-score less than or equal to -2.5 at the femoral neck or spine after appropriate evaluation to exclude secondary causes. -Low bone mass at the hip or spine and a 10-year fracture probability by FRAX of greater than or equal to 3% for hip fracture or greater than or equal to 20% for major osteoporotic fracture based on the [place] adapted WHO algorithm. 4. Other Recommendations: All treatment decisions require clinical judgment and consideration of individual patient factors, including patient preferences, comorbidities, previous drug use, risk factors not captured in the FRAX model (e.g. frailty, falls, vitamin D deficiency, increased bone turnover, interval significant decline in bone density) and possible under or overestimation of fracture risk by FRAX. Additional medical evaluation for secondary cause of low bone mineral density may be appropriate. FUTURE SCAN RECOMMENDATION: People with diagnosed cases of osteoporosis or at high risk for fracture should have regular bone mineral density tests. For patients eligible for Medicare, routine testing is allowed once every 2 years. The testing frequency can be increased to one year for patients who have rapidly progressing disease, those who are receiving or discontinuing medical therapy to restore bone mass, or have additional risk factors.
== END 2022-10-05 09:23 | disposition home or self-care (01) ==
LOC: HO.MAMMO 09:22
PROVIDERS: PCP Internal Medicine; Visit Provider Internal Medicine
DX: M81.0 Age-related osteoporosis without current pathological fracture (principal)
CPT/HCPCS: 77081

== ENCOUNTER → 2022-10-05 09:45 | Outpatient (BNV) | payer MEDICARE, MEDICAID, SELFPAY | PROVIDERS: PCP Internal Medicine; Visit Provider Radiology Diagnostic Radiology | DX: M81.0 Age-related osteoporosis without current pathological fracture (principal) | CPT/HCPCS: 77081 ==

== ENCOUNTER → 2022-10-29 23:59 | Outpatient (BNV) | payer MEDICARE, MEDICAID, SELFPAY ==
--- NOTE | 2022-11-04 10:21 | A.OFFVIS_ITS ---
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 Borderline hypercholesterolemia Ischemic cardiomyopathy Presence of automatic (implantable) cardiac defibrillator Type 2 diabetes mellitus with diabetic polyneuropathy Unspecified systolic (congestive) heart failure Surgical History History of cardiac defibrillator placement History of heart artery stent History of implantable cardioverter-defibrillator (ICD) insertion History of placement of internal cardiac defibrillator Family History Father Medical history unknown Mother Medical history unknown Social History Housing: Apartment Alcohol intake: never Patient Tobacco Use Status: Never used Tobacco e-Cigarette/Vaping Use: Never Used Second Hand Smoke Exposure: No service: No Current occupational status: retired Cognitive needs: Yes (cane) Hearing needs: No Vision needs: Yes (glasses) Office Procedures Cardiac Device Check Cardiac Device Check Details: Date of service- 10/29/2022; based on impedance data and physiological variables, there is no evidence of worsening congestive heart failure. Acceptable HR variability. [id number] Cardiac Device Interrogation, cardio physiologic monitor Procedure code (CPT) selection complete Assessment & Plan Assessment & Plan (1) Ischemic cardiomyopathy: Code(s): I25.5 - Ischemic cardiomyopathy Coding Level of Care Code Procedure Only Diagnoses Ischemic cardiomyopathy I25.5 CPT Codes Cardiac Device Check - Cardiac Device 15: [id number] Cardiac Device Interrogation, cardio physiologic monitor ([id number])
== END ==
PROVIDERS: PCP Internal Medicine; Visit Provider Internal Medicine
DX: I25.5 Ischemic cardiomyopathy (principal); Z95.810 Presence of automatic (implantable) cardiac defibrillator
CPT/HCPCS: 93297

== ENCOUNTER 2022-11-26 13:31 | Outpatient (AMB) | payer MEDICARE, MEDICAID, SELFPAY ==
[2022-11-26 13:49] VITALS: BP 94/56; PULSE 72; RESP 16; O2SAT 100; BMI 22.9
--- NOTE | 2022-11-26 13:49 | MHC.PC.OV ---
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 Required: No Accompanied by: Self / Same As Patient Allergies No Known Allergies Allergy (Verified 11/26/22 13:58) Medication List - Last Reconciled 11/26/22 by Gustavo Hartmann PA-C aspirin (Adult Low Dose Aspirin) 81 mg PO DAILY blood sugar diagnostic ([employer] Ultra Test strips) As directed blood-glucose meter ([employer] Ultra2 Meter) As directed furosemide 20 mg PO DAILY gabapentin (Neurontin) 300 mg PO BID 90 days glimepiride 4 mg PO DAILY lancets ([employer] Lancets) USE TO TEST DAILY lisinopril 10 mg PO DAILY meloxicam 15 mg PO DAILY metformin ER 750 mg PO BID metoprolol succinate ER 25 mg PO BID rosuvastatin 40 mg PO DAILY spironolactone 25 mg PO DAILY Tobacco use date assessed: 09/27/22 Fall risk assessment: No Falls in past year Last assessed Fall Risk: 11/26/22 Dental Screening Dental Screen Date: 11/26/22 Did you have a dental visit in the last 12 months?: Yes Did you have a dental problem in the last 6 months where you did not have access to dental care?: No Was dental information given to patient?: Patient has dentist HPI Re-occuring Feet Numbness HPI Details Patient is a 72-year-old female here today for problem visit. Patient has a past medical history significant for hypertension, skin cardiomyopathy with D fib placed, type 2 diabetes. She reports over over the last several years having lower extremity numbness to a mild extent. She reports yesterday having very bad bilateral feet numbness causing her to be unable to walk. She had needed assistance to get into her apartment. She denies any falls or recent injuries to her lower back She reports numbness in her feet and has since gone away but she is concerned about this episode. She does have type 2 diabetes and severe bilateral knee arthritis to which she ambulates with a cane for assistance. 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 Surgical History History of implantable cardioverter-defibrillator (ICD) insertion History of heart artery stent History of placement of internal cardiac defibrillator History of cardiac defibrillator placement Family History Father Medical history unknown Mother Medical history unknown Social History Housing: Apartment Alcohol intake: never Patient Tobacco Use Status: Never used Tobacco e-Cigarette/Vaping Use: Never Used Second Hand Smoke Exposure: No service: No Current occupational status: retired Cognitive needs: Yes (cane) Hearing needs: No Vision needs: Yes (glasses) Questionnaire Thrive Questionnaire Date Thrive assessed: 03/29/22 DIANA-7 AMB Questionnaire DIANA-7 Date DIANA - 7 assessed: 03/29/22 Source: Developed by Drs. Alonzo Hays, Cordelia Irby, Arthur Aden and colleagues, with an educational maciej from [employer]. Review of Systems Const Denies headache(s) Eyes Denies loss of vision ENT Denies vertigo, Denies dizziness, Denies headache(s) and Denies sore throat Card Denies chest pain, Denies leg edema and Denies lightheadedness Resp Denies cough, Denies hemoptysis and Denies wheezing GI Denies abdominal pain, Denies melena, Denies constipation, Denies diarrhea and Denies vomiting Denies urinary frequency, Denies dysuria and Denies urinary urgency Musc Denies arthralgias, Denies joint swelling, Denies numbness and Reports tingling Neuro Denies Abnormal speech present, Denies behavioral changes, Denies vertigo, Denies dizziness, Denies headache(s), Denies loss of vision, Denies memory loss, Denies numbness, Reports tingling and Reports paresthesias Psych Denies anxiety, Denies behavioral changes, Denies depression, Denies memory loss and Denies panic attacks Ck/Lymph Denies easy bleeding and Denies easy bruising Aller/Immun Denies wheezing Physical exam (Primary Care) Vital Signs: Last Vital Signs Pulse 72 11/26/22 13:49 Resp 16 11/26/22 13:49 BP 94/56 L 11/26/22 13:49 Pulse Ox 100 11/26/22 13:49 Oxygen Delivery Method Room Air 11/26/22 13:49 BMI result Body Mass Index 22.9 Tobacco/Smoking Status: Tobacco use Status Tobacco use date assessed 09/27/22 11/26/22 13:56 Patient Tobacco Use Status Never used Tobacco 11/26/22 13:56 e-Cigarette/Vaping Use Never Used 11/26/22 13:56 Thrive Assessment: Date of Thrive Assessment Date Thrive assessed 03/29/22 11/26/22 13:56 Const General: healthy appearing, no acute distress, alert and awake Nutritional Appearance: well nourished Orientation/consciousness: oriented to person, oriented to place and oriented to time HENMT Ears: TM's normal bilaterally General nose exam: Normal nasal mucous membranes and turbinates present Eyes Conjunctivae: conjunctivae normal Sclerae: sclerae normal Pupils: Equal, round and reactive pupils present Neck Neck: Yes no lymphadenopathy and Yes no JVD Thyroid: Thyroid normal Carotids: no bruits Resp Effort & Inspection: normal respiratory effort and not tachypneic Auscultation: no crackles, no rales, no rhonchi and no wheezes Cardio Rate: regular rate Rhythm: regular rhythm Heart sounds: no murmurs and normal S1 and S2 GI Palpation (GI): Soft to palpation, nontender, no hepatomegaly and no splenomegaly Auscultation: normal bowel sounds Skin General skin exam: no rashes or lesions noted and dry skin Neuro General: oriented to person, oriented to place and oriented to time Cranial nerves: Yes Equal, round and reactive pupils present Speech: No Abnormal speech present Gait exam (Neuro): Normal gait present Motor exam (neuro): no tremor noted Extrem Other: BILATERAL FEET WITH GOOD 2+ PULSES. GOOD CAPILLARY REFILL, GOOD SENSATION TO LIGHT TOUCH. Right upper extremity: full ROM Left upper extremity: full ROM Right lower extremity: full ROM; no edema Left lower extremity: full ROM; no edema Psych Mental Status: mental status grossly normal Speech and movement: Normal speech and movement present Affect: normal affect Attitude: cooperative Thought process: Normal thought process present Results AMB Hemoglobin A1c AMB Hemoglobin A1c 6.3 % Last Edit by AUGUSTINE Lopez on 11/26/22 14:12 Results Reviewed Results Reviewed: Laboratory Last Values Hgb A1c (Clinic) 6.3 % (4.0-6.0) H 11/26/22 13:40 Assessment and Plan Assessment & Plan (1) Diabetic neuropathy: Code(s): E11.40 - Type 2 diabetes mellitus with diabetic neuropathy, unspecified Qualifiers: Diabetes mellitus complication detail: diabetic polyneuropathy Diabetes mellitus type: type 2 Qualified Code(s): E11.42 - Type 2 diabetes mellitus with diabetic polyneuropathy Plan: Patient's signs symptoms most consistent with a diabetic neuropathy in her lower extremities. Will send for EMG testing of her bilateral lower extremities to affirm suspicions of neuropathy. Advised on increasing her gabapentin to 300 b.i.d. also adding on alpha lipoic acid to help with nerve irritation. Today's A1c stable. Orders: Orders AMB Hemoglobin A1c 11/26/22 E11.42 - Type 2 diabetes mellitus with diabetic polyneuropathy NE electromyogram (EMG) 11/26/22 E11.42 - Type 2 diabetes mellitus with diabetic polyneuropathy Medications: New alpha lipoic acid 600 mg PO BID 30 days 60 tabs 1RF E11.42 - Type 2 diabetes mellitus with diabetic polyneuropathy cane Need for quad cane 1 ea 0RF E11.40 - Type 2 diabetes mellitus with diabetic neuropathy, unspecified, M16.11 - Unilateral primary osteoarthritis, right hip Coding Level of Care Code Est Pt Level 3 (46095) Diagnoses Diabetic polyneuropathy associated with type 2 diabetes mellitus E11.42 Diabetes mellitus complication detail: diabetic polyneuropathy Diabetes mellitus type: type 2
== END 2022-11-26 14:17 | disposition home or self-care (01) ==
PROVIDERS: PCP Internal Medicine; Visit Provider Physician Assistant
DX: E11.42 Type 2 diabetes mellitus with diabetic polyneuropathy (principal)
CPT/HCPCS: 83036; 99213

== ENCOUNTER → 2022-11-29 23:59 | Outpatient (BNV) | payer MEDICARE, MEDICAID, SELFPAY ==
--- NOTE | 2022-12-01 14:29 | MHC.OFFVIS ---
Intake Intake Visit Reasons: Remote HF Monitoring- Biotronik Allergies No Known Allergies Allergy (Verified 11/26/22 13:58) [facility] Medical History Ischemic cardiomyopathy Presence of automatic (implantable) cardiac defibrillator Unspecified systolic (congestive) heart failure Borderline hypercholesterolemia Atherosclerotic heart disease of [place] coronary artery without angina pectoris Arthritis of right hip Type 2 diabetes mellitus with diabetic polyneuropathy Surgical History History of implantable cardioverter-defibrillator (ICD) insertion History of heart artery stent History of placement of internal cardiac defibrillator History of cardiac defibrillator placement Family History Father Medical history unknown Mother Medical history unknown Social History Housing: Apartment Alcohol intake: never Patient Tobacco Use Status: Never used Tobacco e-Cigarette/Vaping Use: Never Used Second Hand Smoke Exposure: No service: No Current occupational status: retired Cognitive needs: Yes (cane) Hearing needs: No Vision needs: Yes (glasses) Office Procedures Cardiac Device Check Cardiac Device Check Details: Date of service- 11/29/2022; based on impedance data and physiological variables, there is no evidence of worsening congestive heart failure. [id number] Cardiac Device Interrogation, cardio physiologic monitor Procedure code (CPT) selection complete Assessment & Plan Assessment & Plan (1) Ischemic cardiomyopathy: Code(s): I25.5 - Ischemic cardiomyopathy Coding Level of Care Code Procedure Only Diagnoses Ischemic cardiomyopathy I25.5 CPT Codes Cardiac Device Check - Cardiac Device 15: [id number] Cardiac Device Interrogation, cardio physiologic monitor ([id number])
== END ==
PROVIDERS: PCP Internal Medicine; Visit Provider Internal Medicine
DX: I25.5 Ischemic cardiomyopathy (principal)
CPT/HCPCS: 93297

== ENCOUNTER → 2022-12-28 23:59 | Outpatient (BNV) | payer MEDICARE, MEDICAID, SELFPAY ==
--- NOTE | 2023-01-02 14:18 | A.OFFVIS_ITS ---
Intake Intake Visit Reasons: Remote ICD Check- Biotronik Allergies No Known Allergies Allergy (Verified 11/26/22 13:58) [facility] Medical History Ischemic cardiomyopathy Presence of automatic (implantable) cardiac defibrillator Unspecified systolic (congestive) heart failure Borderline hypercholesterolemia Atherosclerotic heart disease of [place] coronary artery without angina pectoris Arthritis of right hip Type 2 diabetes mellitus with diabetic polyneuropathy Surgical History History of implantable cardioverter-defibrillator (ICD) insertion History of heart artery stent History of placement of internal cardiac defibrillator History of cardiac defibrillator placement Family History Father Medical history unknown Mother Medical history unknown Social History Housing: Apartment Alcohol intake: never Patient Tobacco Use Status: Never used Tobacco e-Cigarette/Vaping Use: Never Used Second Hand Smoke Exposure: No service: No Current occupational status: retired Cognitive needs: Yes (cane) Hearing needs: No Vision needs: Yes (glasses) Office Procedures Cardiac Device Check Cardiac Device Check Details: Date of service 12/28/2022; Battery life 3.12V; normal lead parameters; no treated VT/VF; ; normal ICD function. [id number] Cardiac Interrogation, implant defibrillator w/interim Procedure code (CPT) selection complete Assessment & Plan Assessment & Plan (1) Ischemic cardiomyopathy: Code(s): I25.5 - Ischemic cardiomyopathy Coding Level of Care Code Procedure Only Diagnoses Ischemic cardiomyopathy I25.5 CPT Codes Cardiac Device Check - Cardiac Device 13: [id number] Cardiac Interrogation, implant defibrillator w/interim ([id number])
== END ==
PROVIDERS: PCP Internal Medicine; Visit Provider Internal Medicine
DX: I25.5 Ischemic cardiomyopathy (principal); Z95.810 Presence of automatic (implantable) cardiac defibrillator
CPT/HCPCS: 93295

== ENCOUNTER → 2022-12-28 23:59 | Outpatient (BNV) | payer MEDICARE, MEDICAID, SELFPAY ==
--- NOTE | 2023-01-02 14:14 | A.OFFVIS_ITS ---
Intake Intake Visit Reasons: Remote HF Monitoring- Biotronik Allergies No Known Allergies Allergy (Verified 11/26/22 13:58) [facility] Medical History Ischemic cardiomyopathy Presence of automatic (implantable) cardiac defibrillator Unspecified systolic (congestive) heart failure Borderline hypercholesterolemia Atherosclerotic heart disease of [place] coronary artery without angina pectoris Arthritis of right hip Type 2 diabetes mellitus with diabetic polyneuropathy Surgical History History of implantable cardioverter-defibrillator (ICD) insertion History of heart artery stent History of placement of internal cardiac defibrillator History of cardiac defibrillator placement Family History Father Medical history unknown Mother Medical history unknown Social History Housing: Apartment Alcohol intake: never Patient Tobacco Use Status: Never used Tobacco e-Cigarette/Vaping Use: Never Used Second Hand Smoke Exposure: No service: No Current occupational status: retired Cognitive needs: Yes (cane) Hearing needs: No Vision needs: Yes (glasses) Office Procedures Cardiac Device Check Cardiac Device Check Details: Date of service- 12/28/2022; based on impedance data and physiological variables, there is no evidence of worsening congestive heart failure. [id number] Cardiac Device Interrogation, cardio physiologic monitor Procedure code (CPT) selection complete Assessment & Plan Assessment & Plan (1) Ischemic cardiomyopathy: Code(s): I25.5 - Ischemic cardiomyopathy Coding Level of Care Code Procedure Only Diagnoses Ischemic cardiomyopathy I25.5 CPT Codes Cardiac Device Check - Cardiac Device 15: [id number] Cardiac Device Interrogation, cardio physiologic monitor ([id number])
== END ==
PROVIDERS: PCP Internal Medicine; Visit Provider Internal Medicine
DX: I25.5 Ischemic cardiomyopathy (principal)
CPT/HCPCS: 93297

== ENCOUNTER 2023-01-04 09:56 | Outpatient (REF) | payer MEDICARE, MEDICAID, SELFPAY ==
--- NOTE | 2023-01-04 09:59 | EMG_ITS ---
Chief complaint: Chronic symptoms of neuropathy, difficulty walking, history of diabetes Reason for referral: Evaluate for neuropathy Referred by: Gustavo SLAUGHTER Procedure done: Bilateral lower extremity NCS/EMG Precautions and/or limitations: ICD The limb temperature was monitored continuously and remained between 32-36 degrees C during the performance of the NCS. Nerve Conduction Studies Anti Sensory Summary Table ?Stim Site NR Onset (ms) Norm Onset (ms) Peak (ms) Norm Peak (ms) O-P Amp (?V) Norm O-P Amp Site1 Site2 Delta-0 (ms) Dist (cm) Thony (m/s) Norm Thony (m/s) Left Sural Anti Sensory (Lat Mall) Calf ? 3.5 4.0 <4.0 4.5 >5.0 Calf Lat Mall 3.5 14.0 40 Right Sural Anti Sensory (Lat Mall) Calf ? 3.6 4.6 <4.0 3.7 >5.0 Calf Lat Mall 3.6 14.0 39 Motor Summary Table ?Stim Site NR Onset (ms) Norm Onset (ms) O-P Amp (mV) Norm O-P Amp iAmp (mV) Amp (1st) (%) Site1 Site2 Delta-0 (ms) Dist (cm) Thony (m/s) Norm Thony (m/s) Left Peroneal Motor (Ext Dig Brev) Ankle ? 4.2 <4.0 2.2 >2.5 3.0 100.0 Ankle Ext Dig Brev 4.2 0.0 B Fib ? 11.3 1.7 2.0 77.3 B Fib Ankle 7.1 30.0 42 >40 Poplt ? 12.1 1.7 2.0 77.3 Poplt B Fib 0.8 5.0 63 >40 Right Peroneal Motor (Ext Dig Brev) Ankle ? 3.7 <4.0 3.7 >2.5 4.5 100.0 Ankle Ext Dig Brev 3.7 0.0 B Fib ? 11.3 3.3 4.1 89.2 B Fib Ankle 7.6 31.5 41 >40 Poplt ? 12.6 3.9 4.4 105.4 Poplt B Fib 1.3 6.0 46 >40 Left Tibial Motor (Abd Ortiz Brev) Ankle ? 5.2 <5 1.2 >2.5 1.5 100.0 Ankle Abd Ortiz Brev 5.2 0.0 Knee ? 0.0 0.0 0.0 Knee Ankle 0.0 >40 Right Tibial Motor (Abd Ortiz Brev) Ankle ? 4.5 <5 4.9 >2.5 5.7 100.0 Ankle Abd Ortiz Brev 4.5 0.0 Knee ? 0.0 0.0 0.1 Knee Ankle 0.0 >40 EMG ?Side Muscle Nerve Root Ins Act Fibs Psw Amp Dur Poly Recrt Int Pat Comment Right AbdHallucis MedPlantar S1-2 Nml Nml Nml Nml Nml 0 Nml Complete Right AntTibialis Dp Br Peron L4-5 Nml Nml Nml Nml Nml 0 Nml Complete Right PostTibialis Tibial L5, S1 Nml Nml Nml Nml Nml 0 Nml Complete Right MedGastroc Tibial S1-2 Nml Nml Nml Nml Nml 0 Nml Complete Right VastusMed Femoral L2-4 Nml Nml Nml Nml Nml 0 Nml Complete Left AbdHallucis MedPlantar S1-2 Nml Nml Nml Nml Nml 0 Nml Complete Left AntTibialis Dp Br Peron L4-5 Nml Nml Nml Nml Nml 0 Nml Complete Left PostTibialis Tibial L5, S1 Nml Nml Nml Nml Nml 0 Nml Complete Left MedGastroc Tibial S1-2 Nml Nml Nml Nml Nml 0 Nml Complete Left VastusMed Femoral L2-4 Nml Nml Nml Nml Nml 0 Nml Complete FINDINGS: Left peroneal motor nerve showed prolonged distal latency, small amplitude and normal conduction velocity. Left tibial motor nerve showed small amplitude. With bilateral tibial motor nerves, I could not get response under popliteal area, could not over stimulate due to presence of ICD. Right sural sensory nerve showed in prolonged peak latency and small amplitude. Left sural sensory nerve showed small amplitude. Concentric needle EMG was performed in selected muscles of the bilateral lower extremity. Study did not reveal signs of electric abnormalities as shown in the table below. IMPRESSION: 1. Technically difficult exam given difficulty with patient positioning; she has an ICD; and age. 2. 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 3. There is no electrodiagnostic evidence for lumbosacral plexopathy or lumbar radiculopathy. Thank you for your kind referral. Rafaela Sanders MD, CODY Board Certified, [place] Board [employer] and Rehabilitation (ABPMR) Board Certified, [place] Board of Electrodiagnostic Medicine (ABEM) CODIN 44039 x 2 MTDD
== END 2023-01-04 09:57 | disposition home or self-care (01) ==
LOC: HO.NEURO 09:56
PROVIDERS: PCP Internal Medicine; Visit Provider Physician Assistant
DX: E11.42 Type 2 diabetes mellitus with diabetic polyneuropathy (principal)
CPT/HCPCS: 95886; 95909

== ENCOUNTER → 2023-01-04 09:59 | Outpatient (BNV) | payer MEDICARE, MEDICAID, SELFPAY | PROVIDERS: PCP Internal Medicine; Visit Provider Physical Medicine & Rehabilitation | DX: G62.89 Other specified polyneuropathies (principal) | CPT/HCPCS: 95886; 95909 ==

== ENCOUNTER → 2023-02-15 23:59 | Outpatient (BNV) | payer MEDICARE, MEDICAID, SELFPAY ==
--- NOTE | 2023-02-20 18:41 | A.OFFVIS_ITS ---
Intake Intake Visit Reasons: Remote HF Monitoring- Biotronik Allergies No Known Allergies Allergy (Verified 11/26/22 13:58) [facility] Medical History Ischemic cardiomyopathy Presence of automatic (implantable) cardiac defibrillator Unspecified systolic (congestive) heart failure Borderline hypercholesterolemia Atherosclerotic heart disease of [place] coronary artery without angina pectoris Arthritis of right hip Type 2 diabetes mellitus with diabetic polyneuropathy Surgical History History of implantable cardioverter-defibrillator (ICD) insertion History of heart artery stent History of placement of internal cardiac defibrillator History of cardiac defibrillator placement Family History Father Medical history unknown Mother Medical history unknown Social History Housing: Apartment Alcohol intake: never Patient Tobacco Use Status: Never used Tobacco e-Cigarette/Vaping Use: Never Used Second Hand Smoke Exposure: No service: No Current occupational status: retired Cognitive needs: Yes (cane) Hearing needs: No Vision needs: Yes (glasses) Office Procedures Cardiac Device Check Cardiac Device Check Details: Date of service- 02/15/2023; based on impedance data and physiological variables, there is no evidence of worsening congestive heart failure. Activity 12% of the day. [id number] Cardiac Device Interrogation, cardio physiologic monitor Procedure code (CPT) selection complete Assessment & Plan Assessment & Plan (1) Ischemic cardiomyopathy: Code(s): I25.5 - Ischemic cardiomyopathy Plan x Coding Level of Care Code Procedure Only Diagnoses Ischemic cardiomyopathy I25.5 CPT Codes Cardiac Device Check - Cardiac Device 15: [id number] Cardiac Device Interro gation, cardio physiologic monitor ([id number])
== END ==
PROVIDERS: PCP Internal Medicine; Visit Provider Internal Medicine
DX: I25.5 Ischemic cardiomyopathy (principal); Z95.810 Presence of automatic (implantable) cardiac defibrillator
CPT/HCPCS: 93297

== ENCOUNTER 2023-03-14 13:26 | Outpatient (AMB) | payer MEDICARE, MEDICAID, SELFPAY ==
[2023-03-14 13:35] VITALS: BP 90/58; PULSE 71; BMI 23.4
--- NOTE | 2023-03-14 13:35 | MHC.OFFVIS ---
Intake Vital Signs 03/14/23 13:35 Height 5 ft 4.5 in Weight 138 lb 7.205 oz BMI 23.4 BP 90/58 L Blood Pressure Location Lt brachial Position Sitting Pulse 71 Intake Visit Reasons: 6 MON FUP/Confirmed Intake Note: 6 month follow up Extension Clerk Required: No Accompanied by: Self / Same As Patient Allergies No Known Allergies Allergy (Verified 11/26/22 13:58) Medication List - Last Reconciled 03/14/23 by Narinder Kramer MD alpha lipoic acid 600 mg PO BID 30 days aspirin (Adult Low Dose Aspirin) 81 mg PO DAILY blood sugar diagnostic ([employer] Ultra Test strips) As directed blood-glucose meter ([employer] Ultra2 Meter) As directed cane Need for quad cane furosemide 20 mg PO DAILY gabapentin (Neurontin) 300 mg PO BID 90 days glimepiride 4 mg PO DAILY lancets ([employer] Delica Lancets) USE TO TEST DAILY lisinopril 10 mg PO DAILY meloxicam 15 mg PO DAILY metformin ER 750 mg PO BID metoprolol succinate ER 25 mg PO BID rosuvastatin 40 mg PO DAILY spironolactone 25 mg PO DAILY HPI HPI Comments History of Present Illness Details Mihaela returns for follow-up regarding ischemic cardiomyopathy. To recall, she had a myocardial infarction in 2005 and underwent LAD stenting. She is quite frail and walks with a cane. She is quite frail but within limits of her activity, doing fine. No cardiac symptoms. [facility] Medical History Ischemic cardiomyopathy Presence of automatic (implantable) cardiac defibrillator Unspecified systolic (congestive) heart failure Borderline hypercholesterolemia Atherosclerotic heart disease of [place] coronary artery without angina pectoris Arthritis of right hip Type 2 diabetes mellitus with diabetic polyneuropathy Surgical History History of implantable cardioverter-defibrillator (ICD) insertion History of heart artery stent History of placement of internal cardiac defibrillator History of cardiac defibrillator placement Family History Father Medical history unknown Mother Medical history unknown Social History Housing: Apartment Alcohol intake: never Patient Tobacco Use Status: Never used Tobacco e-Cigarette/Vaping Use: Never Used Second Hand Smoke Exposure: No service: No Current occupational status: retired Cognitive needs: Yes (cane) Hearing needs: No Vision needs: Yes (glasses) Review of Systems Const All systems reviewed & are unremarkable except as noted in HPI and below Reports as per HPI and Reports no additional complaints Eyes Reports as per HPI and Denies no additional complaints ENT Denies no additional complaints and Reports as per HPI Card Reports as per HPI, Reports no additional complaints, Denies acrocyanosis, Denies chest pain, Denies leg edema, Denies lightheadedness, Denies palpitations and Denies dyspnea Resp Reports as per HPI, Denies no additional complaints and Denies dyspnea GI Reports as per HPI and Denies no additional complaints Reports as per HPI Musc Reports no additional complaints and Reports as per HPI Skin/Breast Reports system reviewed and no additional complaints, except as documented Neuro Reports no additional complaints and Reports as per HPI Psych Reports no additional complaints and Reports as per HPI Endo Reports no additional complaints, Reports as per HPI and Denies palpitations Ck/Lymph Reports no additional complaints and Reports as per HPI Aller/Immun Reports no additional complaints and Reports as per HPI Physical Exam Vital Signs: Last Vital Signs Pulse 71 03/14/23 13:35 BP 90/58 L 03/14/23 13:35 BMI result Body Mass Index 23.4 Const General: comfortable and no acute distress Orientation/consciousness: patient oriented x3 HEENT Other: Unremarkable Head: Yes normal to inspection Neck Neck: Yes normal visual inspection Chest Chest palpation & inspection: normal inspection of the chest Resp Auscultation: clear to auscultation bilaterally Cardio Palpation: normal PMI Heart sounds: S1 normal heart sound present, S2 normal heart sound present, no gallops, no murmurs and no rubs GI Palpation (GI): Soft to palpation Back/Spine/Pelvis Other: unremarkable Skin General skin exam: no rashes or lesions noted Neuro General: patient oriented x3 Extrem General: Yes normal to inspection Psych Mental Status: mental status grossly normal Assessment & Plan Assessment & Plan (1) Ischemic cardiomyopathy: Code(s): I25.5 - Ischemic cardiomyopathy Plan: In the most recent echocardiogram, LVEF 15-20%. Wall motion abnormality in LAD territory. Clinically, NYHA class 1. No evidence of volume overload. Continue low-dose beta-blockers, lisinopril, spironolactone. On small dose of diuretic as well. (2) Atherosclerotic heart disease of [place] coronary artery without angina pectoris: Code(s): I25.10 - Atherosclerotic heart disease of [place] coronary artery without angina pectoris Plan: Myocardial perfusion imaging study shows a large LAD territory infarct. Continue aspirin, statins. Last LDL 45 mg/dl. (3) Essential hypertension: Code(s): I10 - Essential (primary) hypertension Plan: Slightly low blood pressure but no symptoms. May monitor for now. (4) Type 2 diabetes mellitus with unspecified complications: Code(s): E11.8 - Type 2 diabetes mellitus with unspecified complications Plan: Most recent hemoglobin A1c is 6.3%. On glimepiride, metformin. (5) Presence of automatic (implantable) cardiac defibrillator: Code(s): Z95.810 - Presence of automatic (implantable) cardiac defibrillator Plan: Normal function. Can follow remotely. Orders: Orders Comprehensive Met. Panel Today I25.10 - Atherosclerotic heart disease of [place] coronary artery without angina pectoris Coding Level of Care Code Est Pt Level 4 (94814) Diagnoses Ischemic cardiomyopathy I25.5 Atherosclerotic heart disease of [place] coronary artery without angina pectoris I25.10 Essential hypertension I10 Type 2 diabetes mellitus with unspecified complications E11.8 Presence of automatic (implantable) cardiac defibrillator Z95.810
== END 2023-03-14 13:49 | disposition home or self-care (01) ==
PROVIDERS: PCP Internal Medicine; Visit Provider Internal Medicine
DX: I25.5 Ischemic cardiomyopathy (principal); I25.10 Atherosclerotic heart disease of native coronary artery without angina pectoris; I10 Essential (primary) hypertension; E11.8 Type 2 diabetes mellitus with unspecified complications; Z95.810 Presence of automatic (implantable) cardiac defibrillator
CPT/HCPCS: 99214

== ENCOUNTER → 2023-03-14 13:26 | Outpatient (BNVA) | payer MEDICARE, MEDICAID, SELFPAY | PROVIDERS: PCP Internal Medicine; Visit Provider Internal Medicine | DX: I25.5 Ischemic cardiomyopathy (principal); I25.10 Atherosclerotic heart disease of native coronary artery without angina pectoris; I10 Essential (primary) hypertension; E11.8 Type 2 diabetes mellitus with unspecified complications; Z95.810 Presence of automatic (implantable) cardiac defibrillator | CPT/HCPCS: 99212 ==

== ENCOUNTER 2023-03-19 08:20 | Outpatient (REF) | payer MEDICARE, MEDICAID, SELFPAY ==
[2023-03-19 11:55] LABS: Alanine Aminotransferase 37 U/L (0-31); Albumin Level 4.7 g/dL (3.5-5.0); Alkaline Phosphatase 63 U/L (39-117); Anion Gap 16 (12-20); Aspartate Amino Transferase 39 U/L (5-31); Bilirubin Total 0.3 mg/dL (0.0-1.0); Blood Urea Nitrogen 23 mg/dL (9-16); Calcium 11.2 mg/dL (8.4-10.2); Carbon Dioxide 27 mmol/L (22-29); Chloride 103 mmol/L (96-108); Estimated Glomerular Filt Rate 48; Glucose Random 61 mg/dL (60-115); Potassium 4.4 mmol/L (3.3-5.1); Sodium 142 mmol/L (135-145); Total Protein 8.6 g/dL (6.5-8.0)
== END 2023-03-19 08:21 | disposition home or self-care (01) ==
LOC: HO.10HDL 08:20
PROVIDERS: Visit Provider Internal Medicine
DX: I25.10 Atherosclerotic heart disease of native coronary artery without angina pectoris (principal)
CPT/HCPCS: 36415; 80053

== ENCOUNTER 2023-03-20 11:00 | Outpatient (RCR) | payer MEDICARE, MEDICAID, SELFPAY ==
[2023-01-30 09:10] VITALS: BP 105/58; PULSE 63
--- NOTE | 2023-01-30 10:47 | MHC.PT.EP ---
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 female who is referred to PT by Gustavo Hartmann PA-C, with Dx of Type 2 diabetes mellitus with diabetic polyneuropathy, other symptoms involving the musculoskeletal system. PT Diagnosis is abnormality of gait and mobility, unsteady gait, severe R hip OA. Patient impairments include R hip and knee pain, bilateral LE weakness, antalgic gait, impaired balance, poor posture, labored transfers, diabetic polyneuropathy in feet. Patient current functional limitations are standing, walking, difficulty with sit to stand, bending. Patient will benefit from skilled PT to address aforementioned impairments and functional limitations to meet established goals. Frequency and Duration: The patient will be seen 2x/week for 4 weeks Short Term Goals: 2 weeks Patient demonstrates consistency and independence with HEP to self manage symptoms. Care Home Goals: 4 weeks Patient presents with increased R knee strength 4+/5 to improve sit to stand with hands on first attempt. Patient is able to ambulate safely with quad cane 50 ft step to pattern to offload R hip for ambulation in home. Treatment Plan: Modalities to reduce pain, spasms and effusion. Manual therapy to restore motion and function. Therapeutic exercise to improve strength and flexibility. Neuromuscular re-education for posture and balance. Therapeutic activities to return to functional activities of daily living. Electronically signed by: Pooja Alcaraz, PT, DPT Please sign and return to therapist. Thank you for your referral.
--- NOTE | 2023-05-03 11:37 | MHC.PT.DC ---
[facility] [place] Office [place] Office [place] Office [address] Markos Solano [address] [phone] F: [phone] F: [phone] F: [phone] F: [phone] Physical Therapy Discharge Report Diagnosis: Type 2 diabetes mellitus with diabetic polyneuropathy, other symptoms involving the musculoskeletal system (MD Dx) Abnormality of gait and mobility, unsteady gait, severe R hip OA (PT Dx) PACEMAKER Date of Surgery: Date of Evaluation: 01/30/23 Date of Discharge: 05/03/23 Treatments to Date: 8 Cancellations to Date: No Shows to Date: Discharge Status: Achieved Goals Improved Function Independent with HEP Patient Elected to Stop Discharge Summary: Mihaela did very well with PT interventions, having started coming to PT in a wheelchair and being able to transition to coming with a cane. Mihaela requested D/C as she felt improved. During her last PT session on 03/20/23 the assessment reads, Pt continues to do well with balance and standing exercises, occasionally mild increase in R hip pain. Overall improvement in balance and tolerance to standing functional mobility. Electronically signed by: Pooja Alcaraz, PT, DPT Please sign and return to therapist. Thank you for your referral.
== END 2023-05-03 11:41 | disposition home or self-care (01) ==
LOC: HO.PT 11:00
PROVIDERS: PCP Internal Medicine; Visit Provider Physician Assistant
DX: E11.42 Type 2 diabetes mellitus with diabetic polyneuropathy (principal); R29.898 Other symptoms and signs involving the musculoskeletal system
CPT/HCPCS: 97110; 97112; 97116; 97162; 97530

== ENCOUNTER → 2023-03-20 23:59 | Outpatient (BNV) | payer MEDICARE, MEDICAID, SELFPAY ==
--- NOTE | 2023-03-26 19:24 | MHC.OFFVIS ---
Intake Intake Visit Reasons: Remote HF Monitoring- [employer]ot[employer]ik Allergies No Known Allergies Allergy (Verified 11/26/22 13:58) [facility] Medical History Ischemic cardiomyopathy Presence of automatic (implantable) cardiac defibrillator Unspecified systolic (congestive) heart failure Borderline hypercholesterolemia Atherosclerotic heart disease of [place] coronary artery without angina pectoris Arthritis of right hip Type 2 diabetes mellitus with diabetic polyneuropathy Surgical History History of implantable cardioverter-defibrillator (ICD) insertion History of heart artery stent History of placement of internal cardiac defibrillator History of cardiac defibrillator placement Family History Father Medical history unknown Mother Medical history unknown Social History Housing: Apartment Alcohol intake: never Patient Tobacco Use Status: Never used Tobacco e-Cigarette/Vaping Use: Never Used Second Hand Smoke Exposure: No service: No Current occupational status: retired Cognitive needs: Yes (cane) Hearing needs: No Vision needs: Yes (glasses) Office Procedures Cardiac Device Check Cardiac Device Check Details: Date of service- 03/20/2023; based on impedance data and physiological variables, there is no evidence of worsening congestive heart failure. [id number] Cardiac Device Interrogation, cardio physiologic monitor Procedure code (CPT) selection complete Assessment & Plan Assessment & Plan (1) Ischemic cardiomyopathy: Code(s): I25.5 - Ischemic cardiomyopathy Plan x Coding Level of Care Code Procedure Only Diagnoses Ischemic cardiomyopathy I25.5 CPT Codes Cardiac Device Check - Cardiac Device 15: [id number] Cardiac Device Interrogation, cardio physiologic monitor ([id number])
== END ==
PROVIDERS: PCP Internal Medicine; Visit Provider Internal Medicine
DX: I25.5 Ischemic cardiomyopathy (principal); Z95.810 Presence of automatic (implantable) cardiac defibrillator
CPT/HCPCS: 93297

== ENCOUNTER 2023-03-28 09:42 | Outpatient (AMB) | payer MEDICARE, MEDICAID, SELFPAY ==
--- NOTE | 2023-03-28 10:25 | MHC.PC.OV ---
Vital Signs 03/28/23 10:27 Height 5 ft 4.5 in Weight 142 lb 4 oz BMI 24.0 BP 120/70 Blood Pressure Location Lt brachial Position Sitting Pulse 53 Pulse Source Pulse Oximeter Pulse Oximetry (%) 99 Oxygen Delivery Method Room Air Intake Visit Reasons: 6 month f/u Intake Note: Patient is here to follow up on DM, Hypercholesterolemia, HTN. Technical Specialist Cytology Required: No National Park Ranger: Not Required per policy Accompanied by: Self / Same As Patient Allergies No Known Allergies Allergy (Verified 04/02/23 10:40) Medication List - Last Reconciled 04/02/23 by Carlos Garg MD alpha lipoic acid 600 mg PO BID 30 days aspirin (Adult Low Dose Aspirin) 81 mg PO DAILY blood sugar diagnostic ([employer] Ultra Test strips) As directed blood-glucose meter ([employer] Ultra2 Meter) As directed cane Need for quad cane furosemide 20 mg PO DAILY gabapentin (Neurontin) 300 mg PO BID 90 days glimepiride 4 mg PO DAILY lancets ([employer] Delica Lancets) USE TO TEST DAILY lisinopril 10 mg PO DAILY meloxicam 15 mg PO DAILY metformin ER 750 mg PO BID metoprolol succinate ER 25 mg PO BID rosuvastatin 40 mg PO DAILY spironolactone 25 mg PO DAILY Tobacco use date assessed: 03/28/23 Fall risk assessment: 1 Fall in past year (03/09/23) Last assessed Fall Risk: 03/28/23 Dental Screening Dental Screen Date: 03/28/23 Did you have a dental visit in the last 12 months?: Yes Did you have a dental problem in the last 6 months where you did not have access to dental care?: No Was dental information given to patient?: Patient has dentist HPI 6 month f/u HPI Details 72-year-old female presents to the office to discuss her chronic medical conditions. Patient is compliant with medications and reporting no side effects. Able to function and do all activities of daily living. Patient was not having a good diet due to the holiday season. [facility] Medical History Ischemic cardiomyopathy Presence of automatic (implantable) cardiac defibrillator Unspecified systolic (congestive) heart failure Borderline hypercholesterolemia Atherosclerotic heart disease of [place] coronary artery without angina pectoris Arthritis of right hip Type 2 diabetes mellitus with diabetic polyneuropathy Surgical History History of implantable cardioverter-defibrillator (ICD) insertion History of heart artery stent History of placement of internal cardiac defibrillator History of cardiac defibrillator placement Family History Father Medical history unknown Mother Medical history unknown Social History Housing: Apartment Alcohol intake: never Patient Tobacco Use Status: Never used Tobacco e-Cigarette/Vaping Use: Never Used Second Hand Smoke Exposure: No service: No Current occupational status: retired Cognitive needs: Yes (cane) Hearing needs: No Vision needs: Yes (glasses) Questionnaire PHQ-9 Over the last 2 weeks, how often have you been bothered by any of the following problems? 1. Little interest or pleasure in doing things: not at all 2. Feeling down, depressed, or hopeless: not at all 3. Trouble falling or staying asleep, or sleeping too much: not at all 4. Feeling tired or having little energy: not at all 5. Poor appetite or overeating: not at all 6. Feeling bad about yourself - or that you are a failure or have let yourself or your family down: not at all 7. Trouble concentrating on things, such as reading the newspaper or watching television: not at all 8. Moving or speaking so slowly that other people could have noticed. Or the opposite - being so fidgety or restless that you have been moving around a lot more than usual: not at all 9. Thoughts that you would be better off or of hurting yourself in some way: not at all Total score: 0 Depression Screening Interpretation: Negative Depression Screening Done: Yes Source: Developed by Drs. Alonzo Hays, Cordelia Irby, Arthur Aden and colleagues, with an educational maciej from [employer]. Thrive Questionnaire Date Thrive assessed: 03/28/23 I am a: Patient What is your living situation today?: I have a steady place to live Within the past 12 months, did the food you bought not last and you didn't have the money to get more?: Never true Within the past 12 months, did you worry whether your food would run out before you got money to buy more?: Never true Do you have trouble paying for medicines?: No Do you have trouble getting transportation to medical appointments?: No Do you have trouble paying your heating and electricity bill?: No Do you have trouble taking care of your child, family member or friend?: No Do you have trouble with day-to-day activities such as bathing, preparing meals, shopping, managing finances, etc.?: No Are you currently unemployed and looking for a job?: No Are you interested in more education?: No Currently or been in a relationship where the following occur: no concerns reported AUDIT C Alcohol Use Questionnaire (AUDIT-C) 1. How often do you have a drink containing alcohol?: Never Total Score: 0 DIANA-7 AMB Questionnaire DIANA-7 Date DIANA - 7 assessed: 03/28/23 Feeling nervous, anxious, or on edge: 0 = Not at all Not being able to stop or control worryin = Not at all Worrying too much about different things: 0 = Not at all Trouble relaxin = Not at all Being so restless that it is hard to sit still: 0 = Not at all Becoming easily annoyed or irritable: 0 = Not at all Feeling afraid as if something awful might happen: 0 = Not at all Total DIANA-7 score (0-4 normal; 5-9 mild; 10-14 moderate; 15-21 severe): 0 Source: Developed by Drs. Alonzo Hays, Cordelia Irby, Arthur Aden and colleagues, with an educational maciej from [employer]. Physical exam (Primary Care) Vital Signs: Last Vital Signs Pulse 53 03/28/23 10:27 BP 120/70 03/28/23 10:27 Pulse Ox 99 03/28/23 10:27 Oxygen Delivery Method Room Air 03/28/23 10:27 Care Plan Goal for BP management: Blood pressure is in range. BMI result Body Mass Index 24.0 Tobacco/Smoking Status: Tobacco use Status Tobacco use date assessed 03/28/23 03/28/23 10:38 Patient Tobacco Use Status Never used Tobacco 03/28/23 10:38 e-Cigarette/Vaping Use Never Used 03/28/23 10:38 PHQ-9: PHQ-9 Score PHQ-9: Total score 0 03/28/23 11:27 Depression Screening Interpretation: Negative Thrive Assessment: Date of Thrive Assessment Date Thrive assessed 03/28/23 03/28/23 10:38 Currently or been in a relationship where the following occur: no concerns reported Office Procedures Flu Questionnaire Does the patient have a severe egg allergy?: No Does the patient have severe life threatening allergies?: No Does the patient have a fever or illness today?: No Has the patient ever had Guillain-Gulliver Syndrome?: No Has the patient ever had any past reaction to a flu shot?: No Results AMB Hemoglobin A1c AMB Hemoglobin A1c 7.6 % Last Edit by ARMIDA Bergeron on 03/28/23 10:49 Immunizations flu vacc [id number] 6mos up(PF) 60 mcg(15 mcgx4)/0.5 mL IM syringe Performing Provider: Carlos Garg MD [facility] Administered by: ARMIDA Richards on 03/28/23 11:26 Dose Route Admin Location Dispensed Lot Number Expiration Date NDC Supplier Relationship Director 0.5 mL IM Left Deltoid 0.5 mL [id number] 09/15/23 [id number] [employer] VIS Given Date VIS Provided VIS Publication Date 03/28/23 Single Vaccine 20 Eligibility Eligibility Date Funding Source Not [facility] Eligible 03/28/23 Private Results Reviewed Results Reviewed: Laboratory Last Values Hgb A1c (Clinic) 7.6 % (4.0-6.0) H 03/28/23 10:24 Assessment and Plan Assessment & Plan (1) Type 2 diabetes mellitus with diabetic polyneuropathy: Code(s): E11.42 - Type 2 diabetes mellitus with diabetic polyneuropathy Qualifiers: Diabetes mellitus assisted insulin use: without assisted use Qualified Code(s): E11.42 - Type 2 diabetes mellitus with diabetic polyneuropathy Plan: Patient has an elevated A1c. She believes that it is due to her poor diet. She promises to control her diet and will check A1c in 3 months. Does not want to change any medications at the moment. Orders: Orders AMB Hemoglobin A1c 03/28/23 E11.42 - Type 2 diabetes mellitus with diabetic polyneuropathy Influenza Immunization 03/28/23 Z23 - Encounter for immunization Coding Level of Care Code Est Pt Level 3 (55553) Diagnoses Type 2 diabetes mellitus with diabetic polyneuropathy, without long-term current use of insulin E11.42 Diabetes mellitus assisted insulin use: without fire department marine engineer use
[2023-03-28 10:27] VITALS: BP 120/70; PULSE 53; O2SAT 99; BMI 24.0
== END 2023-03-28 11:29 | disposition home or self-care (01) ==
PROVIDERS: PCP Internal Medicine; Visit Provider Internal Medicine
DX: E11.42 Type 2 diabetes mellitus with diabetic polyneuropathy (principal)
CPT/HCPCS: 83036; 90471; 90686; 99213

== ENCOUNTER → 2023-04-01 23:59 | Outpatient (BNV) | payer MEDICARE, MEDICAID, SELFPAY ==
--- NOTE | 2023-04-02 19:14 | MHC.OFFVIS ---
Intake Intake Visit Reasons: Remote ICD Check- [employer]ik Allergies No Known Allergies Allergy (Verified 04/02/23 10:40) [facility] Medical History Ischemic cardiomyopathy Presence of automatic (implantable) cardiac defibrillator Unspecified systolic (congestive) heart failure Borderline hypercholesterolemia Atherosclerotic heart disease of [place] coronary artery without angina pectoris Arthritis of right hip Type 2 diabetes mellitus with diabetic polyneuropathy Surgical History History of implantable cardioverter-defibrillator (ICD) insertion History of heart artery stent History of placement of internal cardiac defibrillator History of cardiac defibrillator placement Family History Father Medical history unknown Mother Medical history unknown Social History Housing: Apartment Alcohol intake: never Patient Tobacco Use Status: Never used Tobacco e-Cigarette/Vaping Use: Never Used Second Hand Smoke Exposure: No service: No Current occupational status: retired Cognitive needs: Yes (cane) Hearing needs: No Vision needs: Yes (glasses) Office Procedures Cardiac Device Check Cardiac Device Check Details: Date of service 04/01/2023; Battery life 87%; normal lead parameters; no treated VT/VF; normal ICD function. [id number] Cardiac Interrogation, implant defibrillator w/interim Procedure code (CPT) selection complete Assessment & Plan Assessment & Plan (1) Ischemic cardiomyopathy: Code(s): I25.5 - Ischemic cardiomyopathy Plan x Coding Level of Care Code Procedure Only Diagnoses Ischemic cardiomyopathy I25.5 CPT Codes Cardiac Device Check - Cardiac Device 13: [id number] Cardiac Interrogation, implant defibrillator w/interim ([id number])
== END ==
PROVIDERS: PCP Internal Medicine; Visit Provider Internal Medicine
DX: I25.5 Ischemic cardiomyopathy (principal); Z95.810 Presence of automatic (implantable) cardiac defibrillator
CPT/HCPCS: 93295

== ENCOUNTER → 2023-04-22 23:59 | Outpatient (BNV) | payer MEDICARE, MEDICAID, SELFPAY ==
--- NOTE | 2023-04-22 19:21 | A.OFFVIS_ITS ---
Intake Intake Visit Reasons: Remote HF Monitoring- [employer] Allergies No Known Allergies Allergy (Verified 04/02/23 10:40) [facility] Medical History Ischemic cardiomyopathy Presence of automatic (implantable) cardiac defibrillator Unspecified systolic (congestive) heart failure Borderline hypercholesterolemia Atherosclerotic heart disease of [place] coronary artery without angina pectoris Arthritis of right hip Type 2 diabetes mellitus with diabetic polyneuropathy Surgical History History of implantable cardioverter-defibrillator (ICD) insertion History of heart artery stent History of placement of internal cardiac defibrillator History of cardiac defibrillator placement Family History Father Medical history unknown Mother Medical history unknown Social History Housing: Apartment Alcohol intake: never Patient Tobacco Use Status: Never used Tobacco e-Cigarette/Vaping Use: Never Used Second Hand Smoke Exposure: No service: No Current occupational status: retired Cognitive needs: Yes (cane) Hearing needs: No Vision needs: Yes (glasses) Office Procedures Cardiac Device Check Cardiac Device Check Details: Date of service- 04/22/2023; based on impedance data and physiological variables, there is no evidence of worsening congestive heart failure. [id number] Cardiac Device Interrogation, cardio physiologic monitor Procedure code (CPT) selection complete Assessment & Plan Assessment & Plan (1) Ischemic cardiomyopathy: Code(s): I25.5 - Ischemic cardiomyopathy Plan x Coding Level of Care Code Procedure Only Diagnoses Ischemic cardiomyopathy I25.5 CPT Codes Cardiac Device Check - Cardiac Device 15: [id number] Cardiac Device Interrogation, cardio physiologic monitor ([id number])
== END ==
PROVIDERS: PCP Internal Medicine; Visit Provider Internal Medicine
DX: I25.5 Ischemic cardiomyopathy (principal); Z95.810 Presence of automatic (implantable) cardiac defibrillator
CPT/HCPCS: 93297

== ENCOUNTER → 2023-05-23 23:59 | Outpatient (BNV) | payer MEDICARE, MEDICAID, SELFPAY ==
--- NOTE | 2023-05-29 14:56 | MHC.OFFVIS ---
Intake Intake Visit Reasons: Remote HF Monitoring- [employer] Allergies No Known Allergies Allergy (Verified 04/02/23 10:40) [facility] Medical History Ischemic cardiomyopathy Presence of automatic (implantable) cardiac defibrillator Unspecified systolic (congestive) heart failure Borderline hypercholesterolemia Atherosclerotic heart disease of [place] coronary artery without angina pectoris Arthritis of right hip Type 2 diabetes mellitus with diabetic polyneuropathy Surgical History History of implantable cardioverter-defibrillator (ICD) insertion History of heart artery stent History of placement of internal cardiac defibrillator History of cardiac defibrillator placement Family History Father Medical history unknown Mother Medical history unknown Social History Housing: Apartment Alcohol intake: never Patient Tobacco Use Status: Never used Tobacco e-Cigarette/Vaping Use: Never Used Second Hand Smoke Exposure: No service: No Current occupational status: retired Cognitive needs: Yes (cane) Hearing needs: No Vision needs: Yes (glasses) Office Procedures Cardiac Device Check Cardiac Device Check Details: Date of service- 05/23/2023; based on impedance data and physiological variables, there is no evidence of worsening congestive heart failure. [id number] Cardiac Device Interrogation, cardio physiologic monitor Procedure code (CPT) selection complete Assessment & Plan Assessment & Plan (1) Ischemic cardiomyopathy: Code(s): I25.5 - Ischemic cardiomyopathy Plan x Coding Level of Care Code Procedure Only Diagnoses Ischemic cardiomyopathy I25.5 CPT Codes Cardiac Device Check - Cardiac Device 15: [id number] Cardiac Device Interrogation, cardio physiologic monitor ([id number])
== END ==
PROVIDERS: PCP Internal Medicine; Visit Provider Internal Medicine
DX: I25.5 Ischemic cardiomyopathy (principal); Z95.810 Presence of automatic (implantable) cardiac defibrillator
CPT/HCPCS: 93297

== ENCOUNTER 2023-05-27 08:38 | Outpatient (REF) | payer MEDICARE, MEDICAID, SELFPAY ==
--- NOTE | ~2023-05-27 | MM_ITS ---
EXAMINATION: MM SCREENING DIGITAL BREAST TOMOSYNTHESIS, BILATERAL CLINICAL INFORMATION: Screening. Asymptomatic. COMPARISON: Mammography: This study is compared with prior exams dating back to 2019. TECHNIQUE: Digital breast tomosynthesis is performed in both the craniocaudal and mediolateral oblique views along with computer-aided detection (CAD). Synthesized 2D images are generated from the tomosynthesis. FINDINGS: There are scattered areas of fibroglandular density (ACR BI-RADS breast composition Category b). There are no significant masses, abnormal calcifications, or other abnormalities. There is a pacemaker in superior aspect of the left breast. MM/MM tomosynthesis screening BI IMPRESSION: No mammographic evidence of malignancy. ASSESSMENT: BI-RADS BI-RADS 1 - Negative RECOMMENDATION: Routine annual mammography screening. 1 year F/U This examination should not preclude the clinical evaluation of a suspicious palpable abnormality. This patient's information was entered into a reminder system with a target due date for their next mammogram.
== END 2023-05-27 08:39 | disposition home or self-care (01) ==
LOC: HO.MAMMO 08:38
PROVIDERS: PCP Internal Medicine; Visit Provider Internal Medicine
DX: Z12.31 Encounter for screening mammogram for malignant neoplasm of breast (principal)
CPT/HCPCS: 77063; 77067

== ENCOUNTER → 2023-05-27 09:00 | Outpatient (BNV) | payer MEDICARE, MEDICAID, SELFPAY | PROVIDERS: PCP Internal Medicine; Visit Provider Radiology Diagnostic Radiology | DX: Z12.31 Encounter for screening mammogram for malignant neoplasm of breast (principal) | CPT/HCPCS: 77063; 77067 ==

== ENCOUNTER → 2023-06-24 23:59 | Outpatient (BNV) | payer MEDICARE, MEDICAID, SELFPAY ==
--- NOTE | 2023-07-01 19:08 | MHC.OFFVIS ---
Intake Intake Visit Reasons: Remote HF monitoring- [facility] Allergies No Known Allergies Allergy (Verified 04/02/23 10:40) [facility] Medical History Ischemic cardiomyopathy Presence of automatic (implantable) cardiac defibrillator Unspecified systolic (congestive) heart failure Borderline hypercholesterolemia Atherosclerotic heart disease of [place] coronary artery without angina pectoris Arthritis of right hip Type 2 diabetes mellitus with diabetic polyneuropathy Surgical History History of implantable cardioverter-defibrillator (ICD) insertion History of heart artery stent History of placement of internal cardiac defibrillator History of cardiac defibrillator placement Family History Father Medical history unknown Mother Medical history unknown Social History Housing: Apartment Alcohol intake: never Patient Tobacco Use Status: Never used Tobacco e-Cigarette/Vaping Use: Never Used Second Hand Smoke Exposure: No service: No Current occupational status: retired Cognitive needs: Yes (cane) Hearing needs: No Vision needs: Yes (glasses) Office Procedures Cardiac Device Check Cardiac Device Check Details: Date of service- 06/24/2023; based on impedance data and physiological variables, there is no evidence of worsening congestive heart failure. [id number] Cardiac Device Interrogation, cardio physiologic monitor Procedure code (CPT) selection complete Assessment & Plan Assessment & Plan (1) Ischemic cardiomyopathy: Code(s): I25.5 - Ischemic cardiomyopathy Plan x Coding Level of Care Code Procedure Only Diagnoses Ischemic cardiomyopathy I25.5 CPT Codes Cardiac Device Check - Cardiac Device 15: [id number] Cardiac Device Interrogation, cardio physiologic monitor ([id number])
== END ==
PROVIDERS: PCP Internal Medicine; Visit Provider Internal Medicine
DX: I25.5 Ischemic cardiomyopathy (principal); Z95.810 Presence of automatic (implantable) cardiac defibrillator
CPT/HCPCS: 93297

== ENCOUNTER → 2023-07-08 23:59 | Outpatient (BNV) | payer MEDICARE, MEDICAID, SELFPAY ==
--- NOTE | 2023-07-09 15:45 | MHC.OFFVIS ---
Intake Visit Reasons: Remote ICD check- [facility] Allergies No Known Allergies Allergy (Verified 04/02/23 10:40) [facility] Medical History Ischemic cardiomyopathy Presence of automatic (implantable) cardiac defibrillator Unspecified systolic (congestive) heart failure Borderline hypercholesterolemia Atherosclerotic heart disease of [place] coronary artery without angina pectoris Arthritis of right hip Type 2 diabetes mellitus with diabetic polyneuropathy Surgical History History of implantable cardioverter-defibrillator (ICD) insertion History of heart artery stent History of placement of internal cardiac defibrillator History of cardiac defibrillator placement Family History Father Medical history unknown Mother Medical history unknown Social History Housing: Apartment Alcohol intake: never Patient Tobacco Use Status: Never used Tobacco e-Cigarette/Vaping Use: Never Used Second Hand Smoke Exposure: No service: No Current occupational status: retired Cognitive needs: Yes (cane) Hearing needs: No Vision needs: Yes (glasses) Office Procedures Cardiac Device Check Cardiac Device Check Details: Date of service 07/08/2023; Battery life 86%; normal lead parameters; no treated VT/VF; ; normal ICD function. [id number] Cardiac Interrogation, implant defibrillator w/interim Procedure code (CPT) selection complete Assessment & Plan Assessment & Plan (1) Ischemic cardiomyopathy: Code(s): I25.5 - Ischemic cardiomyopathy Category: Medical Plan x Coding Level of Care Code Procedure Only Diagnoses Ischemic cardiomyopathy I25.5 CPT Codes Cardiac Device Check - Cardiac Device 13: [id number] Cardiac Interrogation, implant defibrillator w/interim ([id number])
== END ==
PROVIDERS: PCP Internal Medicine; Visit Provider Internal Medicine
DX: I25.5 Ischemic cardiomyopathy (principal); Z95.810 Presence of automatic (implantable) cardiac defibrillator
CPT/HCPCS: 93295

== ENCOUNTER 2023-07-11 08:00 | Outpatient (AMB) | payer MEDICARE, MEDICAID, SELFPAY ==
[2023-07-11 08:04] VITALS: BP 104/58; PULSE 56; O2SAT 99; BMI 22.6
--- NOTE | 2023-07-11 08:04 | A.OFFPC_ITS ---
Vital Signs 07/11/23 08:04 Height 5 ft 4.5 in Weight 134 lb BMI 22.6 BP 104/58 L Blood Pressure Location Lt brachial Position Sitting Pulse 56 Pulse Source Pulse Oximeter Pulse Oximetry (%) 99 Oxygen Delivery Method Room Air Intake Visit Reasons: 3 month f/u Allergies No Known Allergies Allergy (Verified 07/11/23 08:41) Medication List - Last Reconciled 07/11/23 by Carlos Garg MD alpha lipoic acid 600 mg PO BID 30 days aspirin (Adult Low Dose Aspirin) 81 mg PO DAILY blood sugar diagnostic ([employer] Ultra Test strips) As directed blood-glucose meter ([employer] Ultra2 Meter) As directed cane Need for quad cane empagliflozin (Jardiance) 25 mg PO DAILY furosemide 20 mg PO DAILY gabapentin (Neurontin) 300 mg PO BID 90 days glimepiride 4 mg PO DAILY lancets ([employer] Delica Lancets) USE TO TEST DAILY lisinopril 10 mg PO DAILY meloxicam 15 mg PO DAILY metformin ER 750 mg PO BID metoprolol succinate ER 25 mg PO BID rosuvastatin 40 mg PO DAILY spironolactone 25 mg PO DAILY Tobacco use date assessed: 03/28/23 Fall risk assessment: No Falls in past year Last assessed Fall Risk: 07/11/23 Dental Screening Dental Screen Date: 07/11/23 Did you have a dental visit in the last 12 months?: Yes Did you have a dental problem in the last 6 months where you did not have access to dental care?: No Was dental information given to patient?: Patient has dentist HPI 3 month f/u HPI Details 73-year-old female presents to the offic e to discuss her chronic medical conditions. Patient has been following a strict diet since her last office visit. She has been compliant with medications. Her fasting blood sugars are around 132. There is a discrepancy between the medication list she is providing and the list I have in the chart. Patient does not recall taking Jardiance. She is continuing to take glimepiride and metformin. Continues to have discomfort on the right hip. Patient is reluctant to get it checked as she is worse to injections or surgery. Intermittent meloxicam use is helpful. Patient now uses a pronged walker for ambulation. Able to function and do all activities of daily living. [facility] Medical History Ischemic cardiomyopathy Presence of automatic (implantable) cardiac defibrillator Unspecified systolic (congestive) heart failure Borderline hypercholesterolemia Atherosclerotic heart disease of [place] coronary artery without angina pectoris Arthritis of right hip Type 2 diabetes mellitus with diabetic polyneuropathy Surgical History History of implantable cardioverter-defibrillator (ICD) insertion History of heart artery stent History of placement of internal cardiac defibrillator History of cardiac defibrillator placement Family History Father Medical history unknown Mother Medical history unknown Social History Housing: Apartment Alcohol intake: never Patient Tobacco Use Status: Never used Tobacco e-Cigarette/Vaping Use: Never Used Second Hand Smoke Exposure: No service: No Current occupational status: retired Cognitive needs: Yes (cane) Hearing needs: No Vision needs: Yes (glasses) Questionnaire PHQ-9 Over the last 2 weeks, how often have you been bothered by any of the following problems? 1. Little interest or pleasure in doing things: not at all 2. Feeling down, depressed, or hopeless: not at all 3. Trouble falling or staying asleep, or sleeping too much: not at all 4. Feeling tired or having little energy: not at all 5. Poor appetite or overeating: not at all 6. Feeling bad about yourself - or that you are a failure or have let yourself or your family down: not at all 7. Trouble concentrating on things, such as reading the newspaper or watching television: not at all 8. Moving or speaking so slowly that other people could have noticed. Or the opposite - being so fidgety or restless that you have been moving around a lot more than usual: not at all 9. Thoughts that you would be better off or of hurting yourself in some way: not at all Total score: 0 Depression Screening Interpretation: Negative Depression Screening Done: Yes Source: Developed by Drs. Alonzo Hays, Cordelia Irby, Arthur Aden and colleagues, with an educational maciej from [employer]. Thrive Questionnaire Date Thrive assessed: 03/28/23 AUDIT C Alcohol Use Questionnaire (AUDIT-C) 1. How often do you have a drink containing alcohol?: Never Total Score: 0 DIANA-7 AMB Questionnaire DIANA-7 Date DIANA - 7 assessed: 03/28/23 Source: Developed by Drs. Alonzo Hays, Cordelia Irby, Arthur Aden and colleagues, with an educational maciej from [employer]. Physical exam (Primary Care) Vital Signs: Last Vital Signs Pulse 56 07/11/23 08:04 BP 104/58 L 07/11/23 08:04 Pulse Ox 99 07/11/23 08:04 Oxygen Delivery Method Room Air 07/11/23 08:04 Care Plan Goal for BP management: Blood pressure is in range. Continue current medications. BMI result Body Mass Index 22.6 Tobacco/Smoking Status: Tobacco use Status Tobacco use date assessed 03/28/23 07/11/23 08:05 Patient Tobacco Use Status Never used Tobacco 07/11/23 08:05 e-Cigarette/Vaping Use Never Used 07/11/23 08:05 PHQ-9: PHQ-9 Score PHQ-9: Total score 0 07/11/23 08:20 Depression Screening Interpretation: Negative Thrive Assessment: Date of Thrive Assessment Date Thrive assessed 03/28/23 07/11/23 08:05 Advance Care Planning discussion: Exists, not on file Date of discussion: 07/11/23 Who was present: Patient Forms completed: Health Care Proxy and MOLST Time spent: 1-15 minutes, not on file Actual minutes spent: 5 Const General: cooperative and healthy appearing Nutritional Appearance: well nourished Orientation/consciousness: patient oriented x3 Limitations: no limitations HENMT Head: Yes normal to inspection Eyes General: appearance normal, both eyes and all related structures Neck Neck: Yes normal visual inspection Chest Chest palpation & inspection: normal palpation of entire chest wall Resp Effort & Inspection: normal respiratory effort Neuro General: patient oriented x3 Results AMB Hemoglobin A1c AMB Hemoglobin A1c 6.0 % Last Edit by Kristina Riggs CMA on 07/11/23 08 :21 Results Reviewed Results Reviewed: Laboratory Last Values Hgb A1c (Clinic) 6.0 % (4.0-6.0) 07/11/23 08:06 Assessment and Plan Assessment & Plan (1) Type 2 diabetes mellitus with diabetic polyneuropathy: Code(s): E11.42 - Type 2 diabetes mellitus with diabetic polyneuropathy Qualifiers: Diabetes mellitus snf insulin use: without snf use Qualified Code(s): E11.42 - Type 2 diabetes mellitus with diabetic polyneuropathy Plan: A1c is now well controlled. Continue medications at same dosage. Pharmacy will be contacted to see if patient is compliant with Jardiance. (2) Unspecified systolic (congestive) heart failure: Code(s): I50.20 - Unspecified systolic (congestive) heart failure Qualifiers: Heart failure chronicity: unspecified Qualified Code(s): I50.20 - Unspecified systolic (congestive) heart failure Plan: Condition is stable. Continue current medications. (3) Essential hypertension: Code(s): I10 - Essential (primary) hypertension Plan: Blood pressure is stable. Continue current medications. (4) Primary osteoarthritis of right hip: Code(s): M16.11 - Unilateral primary osteoarthritis, right hip Plan: Patient is reluctant to see an orthopedic surgeon. Plan Patient is reluctant to see the orthopedic surgeon. She is averse to get any injections or procedures. Orders: Orders AMB Hemoglobin A1c Today Z13.9 - Encounter for screening, unspecified Coding Level of Care Code Est Pt Level 4 (10686) Diagnoses Type 2 diabetes mellitus with diabetic polyneuropathy, without long-term current use of insulin E11.42 Diabetes mellitus snf insulin use: without snf use Systolic congestive heart failure, unspecified HF chronicity I50.20 Heart failure chronicity: unspecified Essential hypertension I10 Primary osteoarthritis of right hip M16.11 Additional Codes Vital Signs *Quality* - Advance Care Planning discussion: Exists, not on file ([id number]) Vital Signs *Quality* - Time spent: 1-15 minutes, not on file ([id number])
== END 2023-07-11 08:44 | disposition home or self-care (01) ==
PROVIDERS: PCP Internal Medicine; Visit Provider Internal Medicine
DX: E11.42 Type 2 diabetes mellitus with diabetic polyneuropathy (principal); I11.0 Hypertensive heart disease with heart failure; I50.20 Unspecified systolic (congestive) heart failure; M16.11 Unilateral primary osteoarthritis, right hip
CPT/HCPCS: 1124F; 83036; 99214

== ENCOUNTER → 2023-07-29 23:59 | Outpatient (BNV) | payer MEDICARE, MEDICAID, SELFPAY ==
--- NOTE | 2023-07-29 10:49 | A.OFFVIS_ITS ---
Intake Visit Reasons: Remote HF monitoring- [facility] Allergies No Known Allergies Allergy (Verified 07/11/23 08:41) [facility] Medical History Ischemic cardiomyopathy Presence of automatic (implantable) cardiac defibrillator Unspecified systolic (congestive) heart failure Borderline hypercholesterolemia Atherosclerotic heart disease of [place] coronary artery without angina pectoris Arthritis of right hip Type 2 diabetes mellitus with diabetic polyneuropathy Surgical History History of implantable cardioverter-defibrillator (ICD) insertion History of heart artery stent History of placement of internal cardiac defibrillator History of cardiac defibrillator placement Family History Father Medical history unknown Mother Medical history unknown Social History Housing: Apartment Alcohol intake: never Patient Tobacco Use Status: Never used Tobacco e-Cigarette/Vaping Use: Never Used Second Hand Smoke Exposure: No service: No Current occupational status: retired Cognitive needs: Yes (cane) Hearing needs: No Vision needs: Yes (glasses) Office Procedures Cardiac Device Check Cardiac Device Check Details: Date of service- 07/29/2023; based on impedance data and physiological variables, there is no evidence of worsening congestive heart failure. [id number] Cardiac Device Interrogation, cardio physiologic monitor Procedure code (CPT) selection complete Assessment & Plan Assessment & Plan (1) Ischemic cardiomyopathy: Code(s): I25.5 - Ischemic cardiomyopathy Category: Medical Plan x Coding Level of Care Code Procedure Only Diagnoses Ischemic cardiomyopathy I25.5 CPT Codes Cardiac Device Check - Cardiac Device 15: [id number] Cardiac Device Interrogation, cardio physiologic monitor ([id number])
== END ==
PROVIDERS: PCP Internal Medicine; Visit Provider Internal Medicine
DX: I25.5 Ischemic cardiomyopathy (principal); Z95.810 Presence of automatic (implantable) cardiac defibrillator
CPT/HCPCS: 93297

== ENCOUNTER → 2023-08-30 23:59 | Outpatient (BNV) | payer MEDICARE, MEDICAID, SELFPAY ==
--- NOTE | 2023-09-04 21:44 | MHC.OFFVIS ---
Intake Visit Reasons: Remote HF monitoring- [employer] Allergies No Known Allergies Allergy (Verified 07/11/23 08:41) [facility] Medical History Ischemic cardiomyopathy Presence of automatic (implantable) cardiac defibrillator Unspecified systolic (congestive) heart failure Borderline hypercholesterolemia Atherosclerotic heart disease of [place] coronary artery without angina pectoris Arthritis of right hip Type 2 diabetes mellitus with diabetic polyneuropathy Surgical History History of implantable cardioverter-defibrillator (ICD) insertion History of heart artery stent History of placement of internal cardiac defibrillator History of cardiac defibrillator placement Family History Father Medical history unknown Mother Medical history unknown Social History Housing: Apartment Alcohol intake: never Patient Tobacco Use Status: Never used Tobacco e-Cigarette/Vaping Use: Never Used Second Hand Smoke Exposure: No service: No Current occupational status: retired Cognitive needs: Yes (cane) Hearing needs: No Vision needs: Yes (glasses) Office Procedures Cardiac Device Check Cardiac Device Check Details: Date of service- 08/30/2023; based on impedance data and physiological variables, there is no evidence of worsening congestive heart failure. [id number] Cardiac Device Interrogation, cardio physiologic monitor Procedure code (CPT) selection complete Assessment & Plan Assessment & Plan (1) Ischemic cardiomyopathy: Code(s): I25.5 - Ischemic cardiomyopathy Category: Medical Plan x Coding Level of Care Code Procedure Only Diagnoses Ischemic cardiomyopathy I25.5 CPT Codes Cardiac Device Check - Cardiac Device 15: [id number] Cardiac Device Interrogation, cardio physiologic monitor ([id number])
== END ==
PROVIDERS: PCP Internal Medicine; Visit Provider Internal Medicine
DX: I25.5 Ischemic cardiomyopathy (principal); Z95.810 Presence of automatic (implantable) cardiac defibrillator
CPT/HCPCS: 93297

== ENCOUNTER 2023-09-02 10:17 | Outpatient (AMB) | payer MEDICARE, MEDICAID, SELFPAY ==
[2023-09-02 10:31] VITALS: BP 100/58; PULSE 60; BMI 22.7
--- NOTE | 2023-09-02 10:31 | A.OFFVIS_ITS ---
Vital Signs 09/02/23 10:31 Height 5 ft 4 in Weight 132 lb 4.438 oz BMI 22.7 BP 100/58 L Blood Pressure Location Lt brachial Position Sitting Pulse 60 Pulse Source Pulse Oximeter Intake Visit Reasons: 6 mnth fu Allergies No Known Allergies Allergy (Verified 07/11/23 08:41) Medication List - Last Reconciled 09/02/23 by Narinder Kramer MD aspirin (Adult Low Dose Aspirin) 81 mg PO DAILY blood sugar diagnostic ([employer] Ultra Test strips) As directed blood-glucose meter ([employer] Ultra2 Meter) As directed cane Need for quad cane furosemide 20 mg PO DAILY gabapentin (Neurontin) 300 mg PO BID 90 days glimepiride 4 mg PO DAILY lancets ([employer] Delica Lancets) USE TO TEST DAILY lisinopril 10 mg PO DAILY meloxicam 15 mg PO DAILY metformin ER 750 mg PO BID metoprolol succinate ER 25 mg PO BID rosuvastatin 40 mg PO DAILY spironolactone 25 mg PO DAILY HPI Comments Details: Mihaela returns for follow-up regarding ischemic cardiomyopathy. To recall, she had a myocardial infarction in 2005 and underwent LAD stenting. Overall, she states she is doing good. No complaints like angina or shortness of breath or in fact anything cardiac sounding. Has been stable. No recent hospitalizations for cardiac reasons. [facility] Medical History Ischemic cardiomyopathy Presence of automatic (implantable) cardiac defibrillator Unspecified systolic (congestive) heart failure Borderline hypercholesterolemia Atherosclerotic heart disease of [place] coronary artery without angina pectoris Arthritis of right hip Type 2 diabetes mellitus with diabetic polyneuropathy Surgical History History of implantable cardioverter-defibrillator (ICD) insertion History of heart artery stent History of placement of internal cardiac defibrillator History of cardiac defibrillator placement Family History Father Medical history unknown Mother Medical history unknown Social History Housing: Apartment Alcohol intake: never Patient Tobacco Use Status: Never used Tobacco e-Cigarette/Vaping Use: Never Used Second Hand Smoke Exposure: No service: No Current occupational status: retired Cognitive needs: Yes (cane) Hearing needs: No Vision needs: Yes (glasses) Review of Systems Const Denies weakness ENT Denies dizziness Card Denies chest pain, Denies chest pain with activity, Denies syncope, Denies rapid heart rate, Denies pedal edema, Denies edema, Denies leg edema, Denies lightheadedness, Denies palpitations, Denies dyspnea, Denies dyspnea on exertion and Denies orthopnea Resp Denies cough, Denies dyspnea and Denies dyspnea on exertion GI Denies hematochezia and Denies change in stool character Musc Denies abnormal gait, Denies muscle cramps, Denies muscle weakness, Denies numbness, Denies radiating pain into limb and Denies tingling Neuro Denies abnormal gait, Denies dizziness, Denies syncope, Denies numbness, Denies tingling and Denies weakness Endo Denies palpitations Physical Exam Vital Signs: Last Vital Signs Pulse 60 09/02/23 10:31 BP 100/58 L 09/02/23 10:31 BMI result Body Mass Index 22.7 Const General: comfortable and no acute distress Orientation/consciousness: patient oriented x3 HEENT Other: Unremarkable Head: Yes normal to inspection Neck Neck: Yes normal visual inspection Chest Chest palpation & inspection: normal inspection of the chest Resp Auscultation: clear to auscultation bilaterally Cardio Palpation: normal PMI Heart sounds: S1 normal heart sound present, S2 normal heart sound present, no gallops, no murmurs and no rubs GI Palpation (GI): Soft to palpation Back/Spine/Pelvis Other: unremarkable Skin General skin exam: no rashes or lesions noted Neuro General: patient oriented x3 Extrem General: Yes normal to inspection Psych Mental Status: mental status grossly normal Assessment & Plan Assessment & Plan (1) Ischemic cardiomyopathy: Code(s): I25.5 - Ischemic cardiomyopathy Category: Medical Plan: In the last echocardiogram, LVEF 15-20%. Wall motion abnormality in LAD territory. Clinically, NYHA class 1. No evidence of volume overload. Continue low-dose beta-blockers, lisinopril, spironolactone. On small dose of diuretic as well. If insurance approves, consider Farxiga or Jardiance, as she has diabetes as well as severe ischemic cardiomyopathy. (2) Atherosclerotic heart disease of [place] coronary artery without angina pectoris: Code(s): I25.10 - Atherosclerotic heart disease of [place] coronary artery without angina pectoris Category: Medical Plan: Myocardial perfusion imaging study shows a large LAD territory infarct. Continue aspirin, statins. Last LDL 45 mg/dl. (3) Essential hypertension: Code(s): I10 - Essential (primary) hypertension Category: Medical Plan: Runs lowish blood pressures but otherwise stable. (4) Type 2 diabetes mellitus with unspecified complications: Code(s): E11.8 - Type 2 diabetes mellitus with unspecified complications Category: Medical Plan: Most recent hemoglobin A1c is 6%. On glimepiride, metformin. As above, consider Jardiance or Farxiga if insurance approves. Message sent to PCP. (5) Presence of automatic (implantable) cardiac defibrillator: Code(s): Z95.810 - Presence of automatic (implantable) cardiac defibrillator Category: Medical Plan: Normal function. Can follow remotely. Coding Level of Care Code Est Pt Level 4 (97217) Diagnoses Ischemic cardiomyopathy I25.5 Atherosclerotic heart disease of [place] coronary artery without angina pectoris I25.10 Essential hypertension I10 Type 2 diabetes mellitus with unspecified complications E11.8 Presence of automatic (implantable) cardiac defibrillator Z95.810
== END 2023-09-02 10:51 | disposition home or self-care (01) ==
PROVIDERS: PCP Internal Medicine; Visit Provider Internal Medicine
DX: I25.5 Ischemic cardiomyopathy (principal); I25.10 Atherosclerotic heart disease of native coronary artery without angina pectoris; I10 Essential (primary) hypertension; E11.8 Type 2 diabetes mellitus with unspecified complications; Z95.810 Presence of automatic (implantable) cardiac defibrillator
CPT/HCPCS: 99214

== ENCOUNTER → 2023-09-02 10:17 | Outpatient (BNVA) | payer MEDICARE, MEDICAID, SELFPAY | PROVIDERS: PCP Internal Medicine; Visit Provider Internal Medicine | DX: I25.5 Ischemic cardiomyopathy (principal); I25.10 Atherosclerotic heart disease of native coronary artery without angina pectoris; I10 Essential (primary) hypertension; E11.9 Type 2 diabetes mellitus without complications; Z95.810 Presence of automatic (implantable) cardiac defibrillator | CPT/HCPCS: 99212 ==

== ENCOUNTER → 2023-10-03 23:59 | Outpatient (BNV) | payer MEDICARE, MEDICAID, SELFPAY ==
--- NOTE | 2023-10-08 12:39 | MHC.OFFVIS ---
Intake Visit Reasons: Remote ICD check- [employer] Allergies No Known Allergies Allergy (Verified 07/11/23 08:41) [facility] Medical History Ischemic cardiomyopathy Presence of automatic (implantable) cardiac defibrillator Unspecified systolic (congestive) heart failure Borderline hypercholesterolemia Atherosclerotic heart disease of [place] coronary artery without angina pectoris Arthritis of right hip Type 2 diabetes mellitus with diabetic polyneuropathy Surgical History History of implantable cardioverter-defibrillator (ICD) insertion History of heart artery stent History of placement of internal cardiac defibrillator History of cardiac defibrillator placement Family History Father Medical history unknown Mother Medical history unknown Social History Housing: Apartment Alcohol intake: never Patient Tobacco Use Status: Never used Tobacco e-Cigarette/Vaping Use: Never Used Second Hand Smoke Exposure: No service: No Current occupational status: retired Cognitive needs: Yes (cane) Hearing needs: No Vision needs: Yes (glasses) Office Procedures Cardiac Device Check Cardiac Device Check Details: Date of service 10/03/2023; Battery life 84%; normal lead parameters; no treated VT/VF; normal ICD function. [id number] Cardiac Interrogation, implant defibrillator w/interim Procedure code (CPT) selection complete Assessment & Plan Assessment & Plan (1) Ischemic cardiomyopathy: Code(s): I25.5 - Ischemic cardiomyopathy Category: Medical Plan x Coding Level of Care Code Procedure Only Diagnoses Ischemic cardiomyopathy I25.5 CPT Codes Cardiac Device Check - Cardiac Device 13: [id number] Cardiac Interrogation, implant defibrillator w/interim ([id number])
== END ==
PROVIDERS: PCP Internal Medicine; Visit Provider Internal Medicine
DX: I25.5 Ischemic cardiomyopathy (principal); Z95.810 Presence of automatic (implantable) cardiac defibrillator
CPT/HCPCS: 93295

== ENCOUNTER → 2023-10-17 23:59 | Outpatient (BNV) | payer MEDICARE, MEDICAID, SELFPAY ==
--- NOTE | 2023-10-23 09:50 | A.OFFVIS_ITS ---
Intake Visit Reasons: Remote HF monitoring- [employer] Allergies No Known Allergies Allergy (Verified 07/11/23 08:41) [facility] Medical History Ischemic cardiomyopathy Presence of automatic (implantable) cardiac defibrillator Unspecified systolic (congestive) heart failure Borderline hypercholesterolemia Atherosclerotic heart disease of [place] coronary artery without angina pectoris Arthritis of right hip Type 2 diabetes mellitus with diabetic polyneuropathy Surgical History History of implantable cardioverter-defibrillator (ICD) insertion History of heart artery stent History of placement of internal cardiac defibrillator History of cardiac defibrillator placement Family History Father Medical history unknown Mother Medical history unknown Social History Housing: Apartment Alcohol intake: never Patient Tobacco Use Status: Never used Tobacco e-Cigarette/Vaping Use: Never Used Second Hand Smoke Exposure: No service: No Current occupational status: retired Cognitive needs: Yes (cane) Hearing needs: No Vision needs: Yes (glasses) Office Procedures Cardiac Device Check Cardiac Device Check Details: Date of service- 10/17/2023; based on impedance data and physiological variables, there is no evidence of worsening congestive heart failure. [id number]-Ruhwix Cardiac Device Interrogation, cardio physiologic monitor Procedure code (CPT) selection complete Assessment & Plan Assessment & Plan (1) Ischemic cardiomyopathy: Code(s): I25.5 - Ischemic cardiomyopathy Category: Medical Plan x Coding Level of Care Code Procedure Only Diagnoses Ischemic cardiomyopathy I25.5 CPT Codes Cardiac Device Check - Cardiac Device 15: [id number] Cardiac Device Interrogation, cardio physiologic monitor ([id number])
== END ==
PROVIDERS: PCP Internal Medicine; Visit Provider Internal Medicine
DX: I25.5 Ischemic cardiomyopathy (principal); Z95.810 Presence of automatic (implantable) cardiac defibrillator
CPT/HCPCS: 93297

== ENCOUNTER → 2023-11-25 23:59 | Outpatient (BNV) | payer MEDICARE, MEDICAID, SELFPAY ==
--- NOTE | 2023-11-28 08:55 | A.OFFVIS_ITS ---
Intake Visit Reasons: Remote HF monitoring- [employer] Allergies No Known Allergies Allergy (Verified 07/11/23 08:41) [facility] Medical History Ischemic cardiomyopathy Presence of automatic (implantable) cardiac defibrillator Unspecified systolic (congestive) heart failure Borderline hypercholesterolemia Atherosclerotic heart disease of [place] coronary artery without angina pectoris Arthritis of right hip Type 2 diabetes mellitus with diabetic polyneuropathy Surgical History History of implantable cardioverter-defibrillator (ICD) insertion History of heart artery stent History of placement of internal cardiac defibrillator History of cardiac defibrillator placement Family History Father Medical history unknown Mother Medical history unknown Social History Housing: Apartment Alcohol intake: never Patient Tobacco Use Status: Never used Tobacco e-Cigarette/Vaping Use: Never Used Second Hand Smoke Exposure: No service: No Current occupational status: retired Cognitive needs: Yes (cane) Hearing needs: No Vision needs: Yes (glasses) Office Procedures Cardiac Device Check Cardiac Device Check Details: Date of service- 11/25/2023; based on impedance data and physiological variables, there is no evidence of worsening congestive heart failure. [id number] Cardiac Device Interrogation, cardio physiologic monitor Procedure code (CPT) selection complete Assessment & Plan Assessment & Plan (1) Ischemic cardiomyopathy: Code(s): I25.5 - Ischemic cardiomyopathy Category: Medical (2) Unspecified systolic (congestive) heart failure: Code(s): I50.20 - Unspecified systolic (congestive) heart failure Category: Medical Qualifiers: Heart failure chronicity: unspecified Qualified Code(s): I50.20 - Unspecified systolic (congestive) heart failure Plan x Coding Level of Care Code Procedure Only Diagnoses Ischemic cardiomyopathy I25.5 Systolic congestive heart failure, unspecified HF chronicity I50.20 Heart failure chronicity: unspecified CPT Codes Cardiac Device Check - Cardiac Device 15: [id number] Cardiac Device Interro gation, cardio physiologic monitor ([id number])
== END ==
PROVIDERS: PCP Internal Medicine; Visit Provider Internal Medicine
DX: I25.5 Ischemic cardiomyopathy (principal); I50.20 Unspecified systolic (congestive) heart failure; Z95.810 Presence of automatic (implantable) cardiac defibrillator
CPT/HCPCS: 93297

== ENCOUNTER → 2024-01-05 23:59 | Outpatient (BNV) | payer MEDICARE, MEDICAID, SELFPAY ==
--- NOTE | 2024-01-07 18:58 | A.OFFVIS_ITS ---
Intake Visit Reasons: Remote ICD check- [employer] Allergies No Known Allergies Allergy (Verified 07/11/23 08:41) [facility] Medical History Ischemic cardiomyopathy Presence of automatic (implantable) cardiac defibrillator Unspecified systolic (congestive) heart failure Borderline hypercholesterolemia Atherosclerotic heart disease of [place] coronary artery without angina pectoris Arthritis of right hip Type 2 diabetes mellitus with diabetic polyneuropathy Surgical History History of implantable cardioverter-defibrillator (ICD) insertion History of heart artery stent History of placement of internal cardiac defibrillator History of cardiac defibrillator placement Family History Father Medical history unknown Mother Medical history unknown Social History Housing: Apartment Alcohol intake: never Patient Tobacco Use Status: Never used Tobacco e-Cigarette/Vaping Use: Never Used Second Hand Smoke Exposure: No service: No Current occupational status: retired Cognitive needs: Yes (cane) Hearing needs: No Vision needs: Yes (glasses) Office Procedures Cardiac Device Check Cardiac Device Check Details: Date of service 01/07/2024; Battery life 81%; normal lead parameters; no treated VT/VF; normal ICD function. [id number] Cardiac Interrogation, implant defibrillator w/interim Procedure code (CPT) selection complete Assessment & Plan Assessment & Plan (1) Presence of automatic (implantable) cardiac defibrillator: Code(s): Z95.810 - Presence of automatic (implantable) cardiac defibrillator Category: Medical (2) Ischemic cardiomyopathy: Code(s): I25.5 - Ischemic cardiomyopathy Category: Medical Plan x Coding Level of Care Code Procedure Only Diagnoses Presence of automatic (implantable) cardiac defibrillator Z95.810 Ischemic cardiomyopathy I25.5 CPT Codes Cardiac Device Check - Cardiac Device 13: [id number] Cardiac Interrogation, implant defibrillator w/interim ([id number])
== END ==
PROVIDERS: PCP Internal Medicine; Visit Provider Internal Medicine
DX: I25.5 Ischemic cardiomyopathy (principal); Z95.810 Presence of automatic (implantable) cardiac defibrillator
CPT/HCPCS: 93295

== ENCOUNTER 2024-01-09 07:52 | Outpatient (AMB) | payer MEDICARE, MEDICAID, SELFPAY ==
[2024-01-09 07:59] VITALS: BP 102/58; PULSE 59; O2SAT 97; BMI 22.5
--- NOTE | 2024-01-09 07:59 | A.OFFPC_ITS ---
Vital Signs 01/09/24 07:59 Height 5 ft 4 in Weight 131 lb BMI 22.5 BP 102/58 L Blood Pressure Location Lt brachial Position Sitting Pulse 59 Pulse Source Pulse Oximeter Pulse Oximetry (%) 97 Oxygen Delivery Method Room Air Intake Visit Reasons: 6mth f/u Allergies No Known Allergies Allergy (Verified 01/09/24 08:00) Tobacco use date assessed: 03/28/23 Fall risk assessment: No Falls in past year Last assessed Fall Risk: 01/09/24 Dental Screening Dental Screen Date: 07/11/23 HPI 6mth f/u HPI Details 73-year-old female presents to the [facility] to discuss her chronic medical conditions. Patient has right hip continues to hurt. Symptoms are worse on certain days. She is using a cane to ambulate. Continues to resist steroid injections to alleviate the pain. She is compliant with her medications and reports no side effects. Has agreed to get blood work done. Up-to-date on screening mammography and colonoscopy. Received her flu vaccine today. [facility] Medical History (Updated 01/09/24 @ 08:07 by Carlos Garg MD) Encounter for colorectal cancer screening using Cologuard test (~11/15/21) Ischemic cardiomyopathy Presence of automatic (implantable) cardiac defibrillator Unspecified systolic (congestive) heart failure Borderline hypercholesterolemia Atherosclerotic heart disease of [place] coronary artery without angina pectoris Arthritis of right hip Type 2 diabetes mellitus with diabetic polyneuropathy Surgical History History of implantable cardioverter-defibrillator (ICD) insertion History of heart artery stent History of placement of internal cardiac defibrillator History of cardiac defibrillator placement Family History Father Medical history unknown Mother Medical history unknown Social History Housing: Apartment Alcohol intake: never Patient Tobacco Use Status: Never used Tobacco Tobacco use type: Cigarette e-Cigarette/Vaping Use: Never Used Second Hand Smoke Exposure: No service: No Current occupational status: retired Cognitive needs: Yes (cane) Hearing needs: No Vision needs: Yes (glasses) Questionnaire PHQ-9 Over the last 2 weeks, how often have you been bothered by any of the following problems? 1. Little interest or pleasure in doing things: not at all 2. Feeling down, depressed, or hopeless: not at all 3. Trouble falling or staying asleep, or sleeping too much: not at all 4. Feeling tired or having little energy: not at all 5. Poor appetite or overeating: not at all 6. Feeling bad about yourself - or that you are a failure or have let yourself or your family down: not at all 7. Trouble concentrating on things, such as reading the newspaper or watching television: not at all 8. Moving or speaking so slowly that other people could have noticed. Or the opposite - being so fidgety or restless that you have been moving around a lot more than usual: not at all 9. Thoughts that you would be better off or of hurting yourself in some way: not at all Total score: 0 Depression Screening Interpretation: Negative Depression Screening Done: Yes Source: Developed by Drs. Alonzo Hays, Cordelia Irby, Arthur Aden and colleagues, with an educational maciej from [employer]. Thrive Questionnaire Date Thrive assessed: 03/28/23 AUDIT C Alcohol Use Questionnaire (AUDIT-C) 1. How often do you have a drink containing alcohol?: Never Total Score: 0 DIANA-7 AMB Questionnaire DIANA-7 Date DIANA - 7 assessed: 03/28/23 Source: Developed by Drs. Alonzo Hays, Arthur Melendez and colleagues, with an educational maciej from [employer]. Physical exam (Primary Care) Vital Signs: Last Vital Signs Pulse 59 01/09/24 07:59 BP 102/58 L 01/09/24 07:59 Pulse Ox 97 01/09/24 07:59 Oxygen Delivery Method Room Air 01/09/24 07:59 BMI result Body Mass Index 22.5 Tobacco/Smoking Status: Tobacco use Status Tobacco use date assessed 03/28/23 01/09/24 08:00 Patient Tobacco Use Status Never used Tobacco 01/09/24 08:00 Tobacco use type Cigarette 01/09/24 08:00 e-Cigarette/Vaping Use Never Used 01/09/24 08:00 PHQ-9: PHQ-9 Score PHQ-9: Total score 0 01/09/24 08:14 Depression Screening Interpretation: Negative Thrive Assessment: Date of Thrive Assessment Date Thrive assessed 03/28/23 01/09/24 08:00 Const General: cooperative and healthy appearing Nutritional Appearance: well nourished Orientation/consciousness: patient oriented x3 Limitations: no limitations HENMT Head: Yes normal to inspection Eyes General: appearance normal, both eyes and all related structures Neck Neck: Yes normal visual inspection Chest Chest palpation & inspection: normal palpation of entire chest wall Resp Effort & Inspection: normal respiratory effort Neuro General: patient oriented x3 Office Procedures Flu Questionnaire Does the patient have a severe egg allergy?: No Does the patient have severe life threatening allergies?: No Does the patient have a fever or illness today?: No Has the patient ever had Guillain-Fischer Syndrome?: No Has the patient ever had any past reaction to a flu shot?: No Results AMB Hemoglobin A1c AMB Hemoglobin A1c 5.6 % Last Edit by Kristina Riggs CMA on 01/09/24 08 :15 Immunizations Fluarix Triv [id number] (PF) 45 mcg (15 mcg x 3)/0.5 mL IM syringe Performing Provider: Carlos Garg MD [facility] Administered by: Kristina Riggs CMA on 01/09/24 08:08 Dose Route Admin Location Dispensed Lot Number Expiration Date NDC Personal Financial Representative 0.5 mL IM Left Deltoid 0.5 mL [id number] 09/14/24 95743-431-85 Origin [employer] VIS Given Date VIS Provided VIS Publication Date 01/09/24 Single Vaccine 20 Eligibility Eligibility Date Funding Source Not [facility] Eligible 01/09/24 Private Results Reviewed Results Reviewed: Laboratory Last Values Hgb A1c (Clinic) 5.6 % (4.0-6.0) 01/09/24 08:00 Coding Level of Care Code Est Pt Level 4 (74457) Complex EM visit Add On G2211 Diagnoses Systolic congestive heart failure, unspecified HF chronicity I50.20 Heart failure chronicity: unspecified Primary osteoarthritis of right hip M16.11 Osteoarthritis location: hip Osteoarthritis type: primary Laterality: right Essential hypertension I10 Diabetic polyneuropathy associated with type 2 diabetes mellitus E11.42 Diabetes mellitus type: type 2 Diabetes mellitus complication detail: diabetic polyneuropathy Assessment & Plan Assessment & Plan (1) Unspecified systolic (congestive) heart failure: Code(s): I50.20 - Unspecified systolic (congestive) heart failure Category: Medical Qualifiers: Heart failure chronicity: unspecified Qualified Code(s): I50.20 - Unspecified systolic (congestive) heart failure Plan: Condition is stable. Continue current medications. (2) Osteoarthritis: Code(s): M19.90 - Unspecified osteoarthritis, unspecified site Category: Medical Qualifiers: Osteoarthritis location: hip Osteoarthritis type: primary Laterality: right Qualified Code(s): M16.11 - Unilateral primary osteoarthritis, right hip Plan: Patient declines steroid injections. Intermittent use of meloxicam, heating pad suggested. (3) Essential hypertension: Code(s): I10 - Essential (primary) hypertension Category: Medical Plan: Blood pressure is in range. Continue meds at same dosage. (4) Diabetic neuropathy: Code(s): E11.40 - Type 2 diabetes mellitus with diabetic neuropathy, unspecified Category: Medical Qualifiers: Diabetes mellitus type: type 2 Diabetes mellitus complication detail: diabetic polyneuropathy Qualified Code(s): E11.42 - Type 2 diabetes mellitus with diabetic polyneuropathy Plan: Continue Neurontin. Blood work has been ordered. Orders: Orders Influenza [id number] Immunization Today Z23 - Encounter for immunization Basic Metabolic Panel Today E11.42 - Type 2 diabetes mellitus with diabetic polyneuropathy, I10 - Essential (primary) hypertension, I50.20 - Unspecified systolic (congestive) heart failure, M16.11 - Unilateral primary osteoarthritis, right hip Complete Blood Count no Diff Today E11.42 - Type 2 diabetes mellitus with diabetic polyneuropathy, I10 - Essential (primary) hypertension, I50.20 - Unspecified systolic (congestive) heart failure, M16.11 - Unilateral primary osteoarthritis, right hip Lipid Panel Today E11.42 - Type 2 diabetes mellitus with diabetic polyneuropathy, I10 - Essential (primary) hypertension, I50.20 - Unspecified systolic (congestive) heart failure, M16.11 - Unilateral primary osteoarthritis, right hip Hemoglobin A1c Today E11.42 - Type 2 diabetes mellitus with diabetic polyneuropathy, I10 - Essential (primary) hypertension, I50.20 - Unspecified systolic (congestive) heart failure, M16.11 - Unilateral primary osteoarthritis, right hip UA and rflx microscopic Today E11.42 - Type 2 diabetes mellitus with diabetic polyneuropathy, I10 - Essential (primary) hypertension, I50.20 - Unspecified systolic (congestive) heart failure, M16.11 - Unilateral primary osteoarthritis, right hip Microalbumin, Random (w Creat) Today E11.42 - Type 2 diabetes mellitus with diabetic polyneuropathy, I10 - Essential (primary) hypertension, I50.20 - Unspecified systolic (congestive) heart failure, M16.11 - Unilateral primary osteoarthritis, right hip AMB Hemoglobin A1c Today Z13.9 - Encounter for screening, unspecified Liver Panel Today E11.42 - Type 2 diabetes mellitus with diabetic polyneuropathy, I10 - Essential (primary) hypertension, I50.20 - Unspecified systolic (congestive) heart failure, M16.11 - Unilateral primary osteoarthritis, right hip Thyroid Stimulating Hormone Today E11.42 - Type 2 diabetes mellitus with diabetic polyneuropathy, I10 - Essential (primary) hypertension, I50.20 - Unspecified systolic (congestive) heart failure, M16.11 - Unilateral primary osteoarthritis, right hip
== END 2024-01-09 08:26 | disposition home or self-care (01) ==
PROVIDERS: PCP Internal Medicine; Visit Provider Internal Medicine
DX: E11.42 Type 2 diabetes mellitus with diabetic polyneuropathy (principal); I11.0 Hypertensive heart disease with heart failure; I50.20 Unspecified systolic (congestive) heart failure; M16.11 Unilateral primary osteoarthritis, right hip

== ENCOUNTER 2024-01-09 08:55 | Outpatient (REF) | payer MEDICARE, MEDICAID, SELFPAY ==
[2024-01-09 10:49] LABS: Hematocrit 34.3 % (37.0-47.0); Hemoglobin 11.1 g/dl (12.0-16.0); Mean Corpuscular HGB Conc 32.4 g/dl (31.0-35.0); Mean Corpuscular Hemoglobin 30.3 pg (27.0-33.0); Mean Corpuscular Volume 93.7 fL (80.0-98.0); Mean Platelet Volume 8.8 fL (9.4-12.3); Platelet Count 239 X10*3/uL (160-400); Red Blood Count 3.66 X10*6/uL (4.20-5.50); Red Cell Distribution Width 12.6 % (11.0-16.0); White Blood Count 4.7 X10*3/uL (4.8-10.8)
[2024-01-09 10:52] LABS: Appearance Urine Clear; Color Urine Dark Yellow; Glucose Urine UA Negative (Negative); Leukocyte Esterase Urine Trace (Negative); Nitrite Urine Negative (Negative); UMIC TRIGGER UA YES; Urine Blood Negative (Negative); Urine Ketones Negative (Negative); Urine Protein Negative (Neg-Trace)
[2024-01-09 10:59] LABS: Bacteria Urine None Seen (None Seen); RBC Urine 0-2 /HPF (0-2); Squamous Epithelial Cell Urine 0-2 /HPF (0-2); WBC Urine 0-5 /HPF (0-5)
[2024-01-09 11:07] LABS: Estimated Average Glucose 117 mg/dL; Hemoglobin A1c % 5.7 % (<6.0)
[2024-01-09 11:19] LABS: Microalbum/Creatinine Ratio Ur 20.3 ug/mg cr (<30)
[2024-01-09 11:21] LABS: Alanine Aminotransferase 52 U/L (0-31); Albumin Level 4.5 g/dL (3.5-5.0); Alkaline Phosphatase 71 U/L (39-117); Anion Gap 13 (12-20); Aspartate Amino Transferase 51 U/L (5-31); Bilirubin Direct 0.1 mg/dL (0.0-0.5); Bilirubin Total 0.3 mg/dL (0.0-1.0); Blood Urea Nitrogen 24 mg/dL (9-16); Carbon Dioxide 31 mmol/L (22-29); Chloride 101 mmol/L (96-108); Cholesterol 99 mg/dL (<200); Estimated Glomerular Filt Rate 49; Glucose Random 45 mg/dL (60-115); HDL Cholesterol 39 mg/dL (>40); LDL Cholesterol Calculated 45 mg/dL (<100); Potassium 4.2 mmol/L (3.3-5.1); Sodium 141 mmol/L (135-145); Total Protein 7.8 g/dL (6.5-8.0); Triglycerides 79 mg/dL (<150)
[2024-01-09 11:31] LABS: Thyroid Stimulating Hormone 1.52 uIU/mL (0.32-4.0)
== END 2024-01-09 08:56 | disposition home or self-care (01) ==
LOC: HO.10HDL 08:55
PROVIDERS: Visit Provider Internal Medicine
DX: Z13.89 Encounter for screening for other disorder (principal)
CPT/HCPCS: 36415; 80048; 80061; 80076; 81001; 82043; 82570; 83036; 84443; 85027

== ENCOUNTER 2024-01-09 15:40 | Emergency (ER) | payer MEDICARE, MEDICAID, SELFPAY ==
--- NOTE | ~2024-01-09 | CT_ITS ---
EXAMINATION: CT HEAD WITHOUT CONTRAST CT FACIAL BONES WITHOUT CONTRAST CT CERVICAL SPINE WITHOUT CONTRAST CLINICAL INFORMATION: Fall. Forehead contusion. Head strike. Patient on blood thinners. COMPARISON: None available. TECHNIQUE: Imaging was performed from the skull base to vertex without intravenous administration of contrast. In addition, helical noncontrast CT imaging was acquired through the cervical spine and facial bones and source images were reviewed along with axial reconstructions and sagittal and coronal MPRs. This CT examination was performed using dose optimization techniques as appropriate, variously including the following: *Automated exposure control. *Adjustment of mA and/or kV according to patient size (this includes techniques or standardized protocols for targeted exams where dose is matched to indication/reason for exam; i.e. extremities or head). *Use of iterative reconstruction technique. DLP: 1171 mGy-cm FINDINGS: Head: There is no evidence of acute intracranial hemorrhage or edematous territorial infarction. Salter-white matter differentiation is preserved. Scattered and partially confluent hypoattenuation in the periventricular and deep white matter are consistent with moderate microangiopathy. Proportional prominence of the ventricles and sulcal spaces without evidence of obstructive hydrocephalus. No abnormal mass effect or midline shift. No extra-axial fluid collections. Calcific atherosclerotic disease of the intracranial internal carotid and vertebral arteries. No hyperdense vessel sign. Small subgaleal hematoma along the right aspect of the frontal bone, measuring up to 0.2 cm in depth. No associated acute osseous calvarial abnormalities. Maxillofacial Bones: No evidence of maxillofacial bone fractures. The zygomatic arches remain intact. No nasal bone fracture. The nasal septum remains midline. No evidence of mandibular or maxillary fracture. The mandibular condyles remain well-seated in their respective temporal articular grooves. Mild degenerative arthropathy of the temporomandibular joints. Normal appearance of the intraconal and extraconal fat. No evidence of traumatic injury to the extraocular musculature or globes. Complete opacification of the left maxillary sinus with mild hyperostotic changes of the niño. Osseous covering of the roots of the maxillary left 1st molar. Mild mucosal thickening of the paranasal sinuses. The mastoid air cells and middle ear cavities are clear. Multifocal odontogenic enamel erosions and periapical lucencies. Cervical Spine: The atlantooccipital and atlantoaxial articulations remain well aligned. Mild reversal the normal cervical lordosis. Otherwise, there is anatomic alignment of the vertebral bodies and posterior elements. No evidence of acute fracture or subluxation. The vertebral body heights are maintained. Moderate degenerative disc disease from C5-C7. Mild to moderate degenerative disc disease at all additional levels. Mild ossification of the posterior longitudinal ligament from C5-C6. Facet and uncovertebral joint arthropathy leads to osseous encroachment on the neural foramina from C3-C7. There is no prevertebral soft tissue swelling. The thyroid gland and remaining cervical soft tissues are within normal limits. Left pectoral pacemaker. The lung apices demonstrate no abnormalities. CT/CT cervical spine wo IV con IMPRESSION: 1. No evidence of acute intracranial hemorrhage or edematous territorial infarction. Moderate underlying microangiopathy and generalized cerebral volume loss. 2. No evidence of acute fracture or traumatic subluxation of the cervical spine. Moderate multilevel degenerative spondyloarthropathy of the cervical spine. 3. No evidence of acute fracture of the maxillofacial bones. 4. Complete opacification of the left maxillary sinus with osseous covering of the roots of the maxillary left 1st molar suggestive of odontogenic sinusitis. Electronically signed by: Shola Goetz DO 01/09/2024 06:44 PM EDT
[2024-01-09 16:01] VITALS: BP 114/69; BP 121/63; PULSE 59; PULSE 67; RESP 16; TEMP 36.4; O2SAT 100; O2SAT 99; BMI 24.9
[2024-01-09 16:05] VITALS: BP 121/63; PULSE 67; RESP 16; TEMP 36.4; O2SAT 99
--- NOTE | 2024-01-09 16:12 | PC.NURSE ---
Pt comes to ED today via EMS s/p fall at home. Pt reports a routine PCP appointment this AM to which she drove herself. Lab work completed and Pt returned home between 9-10a. Pt then felt dizzy and fell. (+) head strike and LOC. Pt reports she was woken up by her phone ringing, it was her PCP office calling to check in on her. She then called her cousin to report her fall. Pt reports she was able to transistion to the couch where she waited for EMS. Pt is on blood thinners and reports she hit her head. Contusion noted above R eyebrow. Pt denies any pain, c/o increased thirst. 20g by EMS to RAC and C-collar in place. Pt is A&Ox3, VSS, afebrile.
--- NOTE | 2024-01-09 16:29 | ED_ITS ---
HPI - Fall General Chief Complaint: Fall Stated Complaint: fall w/ head strike, +thinners, fell around 9am Time Seen by Provider: 01/09/24 16:30 Source: patient and EMS Mode of arrival: EMS Limitations: no limitations History of Present Illness ED Provider: MG SANCHEZ PA-C HPI Narrative: 73-year-old female with PMHX significant for ischemic cardiomyopathy, CAD, MS, CHF, T2DM, and diabetic neuropathy resents to the ED today via EMS from home for evaluation s/p unwitnessed fall occurring this morning. Patient reports falling while in the bathroom. She does not remember how she fell but remembers falling to the ground. Endorses frontal head strike on floor. On 81mg aspirin daily. No AC. She does not recall any preceding symptoms leading up to the fall. She states she lives alone and was able to call her cousin who then contacted EMS. She reports being on the floor for approximately 4 hours prior to EMS arrival. EMS reports patient's POC glucose on arrival was 86. At present, admits to forehead pain related to fall. Denies headache, dizziness, vision changes, chest pain, palpitations, SOB, LE pain/ swelling. Related Data Home Medications ?Medication ?Instructions ?Recorded ?Confirmed aspirin 81 mg tablet,delayed 81 mg PO DAILY 03/30/21 09/02/23 release (Adult Low Dose Aspirin) blood sugar diagnostic (PodimetricsTouch #10 ea 03/30/21 03/14/23 Ultra Test strips) blood-glucose meter (MENABANQERuch #1 ea 03/30/21 03/14/23 Ultra2 Meter) Previous Rx's ?Medication ?Instructions ?Recorded lancets 33 gauge (OneTouch Delica ##100 04/17/21 Lancets) meloxicam 15 mg tablet 15 mg PO DAILY #30 tabs 07/28/21 cane #1 ea 12/10/22 rosuvastatin 40 mg tablet 40 mg PO DAILY #90 tabs 12/17/22 metoprolol succinate 25 mg 25 mg PO BID #180 tabs 07/02/23 tablet,extended release 24 hr metformin 750 mg tablet,extended 750 mg PO BID #180 tabs 09/24/23 release 24 hr furosemide 20 mg tablet 20 mg PO DAILY #90 tabs 11/12/23 spironolactone 25 mg tablet 25 mg PO DAILY #90 tabs 11/12/23 glimepiride 4 mg tablet 4 mg PO DAILY #90 tabs 11/13/23 lisinopril 10 mg tablet 10 mg PO DAILY #90 tabs 11/13/23 gabapentin 300 mg capsule 300 mg PO BID 90 days #180 caps 11/15/23 (Neurontin) cefuroxime axetil 500 mg tablet 500 mg PO BID 7 days #14 tabs 01/09/24 Allergies Allergy/AdvReac Type Severity Reaction Status Date / Time No Known Allergies Allergy Verified 01/09/24 16:04 Review of Systems 2 Review of Systems: Constitutional: No fever, chills, fatigue, night sweats, weight changes ENT/Mouth: No ear pain, hearing loss, nasal congestion, sinus pain, rhinorrhea, sore throat Eyes: No eye pain, swelling, redness, vision changes, discharge Cardio: No chest pain, palpitations, SILVA, orthopnea, peripheral edema Pulm: No SOB, cough, sputum, wheezing, dyspnea, hemoptysis GI: No nausea, vomiting, hematemesis, abdominal pain, diarrhea, constipation, hematochezia, melena : No irregular bleeding, dysuria, frequency, urgency, hesitancy, hematuria, flank pain, urinary flow changes, urinary incontinence or retention MSK: No back pain, neck pain, joint pain, myalgias, +forehead pain Skin: No lesions, rashes Neuro: No weakness, numbness, paresthesias, LOC, dizziness, headache Psych: No anxiety/panic, depression, SI/HI, AH/VH All other systems reviewed and are negative. [facility] Past Medical History Attestation statement: The following information was validated with the patient. Source: old records reviewed and nursing notes reviewed Medical History Encounter for colorectal cancer screening using Cologuard test (~11/15/21) Ischemic cardiomyopathy Presence of automatic (implantable) cardiac defibrillator Unspecified systolic (congestive) heart failure Borderline hypercholesterolemia Atherosclerotic heart disease of [place] coronary artery without angina pectoris Arthritis of right hip Type 2 diabetes mellitus with diabetic polyneuropathy Surgical History History of implantable cardioverter-defibrillator (ICD) insertion History of heart artery stent History of placement of internal cardiac defibrillator History of cardiac defibrillator placement Family History Family History Father Medical history unknown Mother Medical history unknown Social History Social History Housing: Apartment Alcohol intake: never Patient Tobacco Use Status: Never used Tobacco Tobacco use type: Cigarette Smoked in Last 30 Days: No e-Cigarette/Vaping Use: Never Used Second Hand Smoke Exposure: No Use of substances other than those prescribed or required for medical reasons: No Advance Directives: Yes Advance Directives on File: Yes Advance Directives Date on File: 10/24/22 Do you have a plan to hurt others: No Plan service: No Current occupational status: retired Cognitive needs: Yes (cane) Hearing needs: No Vision needs: Yes (glasses) Physical Exam 2 Vital Signs: Vital Signs: Last Vital Signs Temp 98.5 F 01/09/24 21:26 Pulse 64 01/09/24 21:26 Resp 14 01/09/24 21:26 BP 115/71 01/09/24 21:26 Pulse Ox 98 01/09/24 21:26 O2 Del Method Room Air 01/09/24 21:26 BMI result Body Mass Index 24.9 Vital signs stable General: Well appearing, in no acute distress. Skin: Warm, dry, intact. No rashes or lesions. Head: Small area of ecchymosis noted to central forehead. No hematoma. No palpable skull fracture. EENT: Hearing is intact b/l. Conjunctiva clear. PERRLA. EOMs intact without entrapment. Moist mucous membranes.? Neck: Supple without LAD. Cardiac: Chest wall symmetric. RRR. Lungs: Normal respiratory effort without accessory muscle use. CTA bilaterally. No rales, rhonchi, or wheezes.? Abdomen: Soft, non-tender, non-distended. No rebound tenderness or guarding. Positive BS x4. Back: No midline spinous or paraspinal tenderness. No step off deformity. Ext: Upper and lower extremities atraumatic, without tenderness, deformity, swelling or erythema. Full ROM throughout. Strength 5/5 throughout. Neuro: AOx3. Normal speech.Strength 5/5 intact throughout. Sensation intact to light touch. NV intact distally. Reflexes 2+ bilaterally. Ambulating with steady gait. Psych: Appropriate mood and affect. Responds appropriately to questions. Course Course Course Narrative: 1715 -- POC 32 - will trial PO and recheck in 15 min. 1728 -- Repeat POC 52 after apple juice. D50 ordered > will continue to monitor. she is AOX3 and speaking in full sentences. vitals are wnl. > CBC without leukocytosis or left shift. normocytic anemia, h&h appears to be around patient's baseline when compared to priors and above transfusion threshold. chemistry without acute electrolyte abnormality requiring intervention. kidney function around patient's baseline. initial troponin 67.2. patient has hx of MS, no prior troponins to compare to. she is denying any chest pain/jaw pain/ UE pain. will repeat for delta. I have low suspicion for ACS. ekg showing sinus bradycardia with 1st degree av block, rate of 58 bpm, no acute ischemic changes or ST elevations - no significant change when compared to previous EKG in 08/2022. 1843 -- CT head without acute bleed, skull fracture or mass. CT facial bones without fracture. CT cervical spine without fracture or subluxation. Cervical collar removed. 2023 -- delta troponin 61.7 > ACS unlikely. POC glucose improved to 223 after dextrose administration. UA with moderate leukocytes, 11-20 WBC and trace urine bacteria. only 0-2 squamous cells. unlikely contamination. will treat for UTI with ceftin. > I have suspicion that patient's hypoglycemia lead to her fall this morning. she endorses taking metformin and glimepride daily for DM - advised her to discontinue the glimepride until she follows up with her PCP as this may be causing hypoglycemic episodes. she verbalizes understanding. Patient has remained stable throughout ED visit today. Discussed worrisome signs and symptoms and when to return to the ED. All questions answered at this time. Patient is agreeable with disposition and stable for discharge. Medications Administered Discontinued Medications Generic Name Dose Route Start Last Admin Trade Name Freq PRN Reason Stop Dose Admin Acetaminophen 650 mg 01/09/24 16:59 01/09/24 17:39 Acetaminophen 325 Mg Tablet PO 01/09/24 17:00 650 mg ONCE ONE Administration Dextrose 250 mls @ 750 mls/hr 01/09/24 17:38 01/09/24 18:21 D10 IV Infused Q15M PRN Infusion per Hypoglycemia Standing Ord. Ibuprofen 600 mg 01/09/24 21:09 01/09/24 21:16 Ibuprofen 600 Mg Tablet PO 01/09/24 21:10 600 mg ONCE ONE Administration Medical Decision Making Medical Decision Making [facility] Narrative: 73-year-old female with PMHX significant for ischemic cardiomyopathy, CAD, MS, CHF, T2DM, and diabetic neuropathy resents to the ED today via EMS from home for evaluation s/p unwitnessed fall occurring this morning. Vital signs are stable. She is nontoxic-appearing and in no acute distress. AOX3. Speaking in full clear sentences. Patient presents in cervical collar - on removal, there is no midline spinous tenderness or step off deformity. small area of ecchymosis to right forehead without palpable skull fracture or hematoma. EOMs intact w/o entrapment. no pitting or peripheral edema. Differential diagnosis includes anemia, electrolyte abnormality, dehydration, hypoglycemia, vasovagal syncope. Lower suspicion for ACS, arrhythmia. Unlikely ICH, CVA/TIA, cerebellar stroke. Plan for labs, ekg, UA, imaging, re-evaluation. Differential Diagnosis Differential Diagnoses: The differential diagnosis associated with the presentation includes as above. Admission/Observation Consideration of admission/observation: Escalation of care including admission/observation considered admission considered Lab Data [facility] Lab Attestation statement: I reviewed the patient's lab results. as above. 01/09/24 17:21 01/09/24 17:21 Labs: Lab Results 01/09/24 01/09/24 01/09/24 Range/Units 17:12 17:21 17:29 WBC 4.7 L (4.8-10.8) X10*3/uL RBC 3.57 L (4.20-5.50) X10*6/uL Hgb 10.8 L (12.0-16.0) g/dl Hct 33.0 L (37.0-47.0) % MCV 92.4 (80.0-98.0) fL MCH 30.3 (27.0-33.0) pg MCHC 32.7 (31.0-35.0) g/dl RDW 12.7 (11.0-16.0) % Plt Count 193 (160-400) X10*3/uL MPV 8.3 L (9.4-12.3) fL Immature Gran % (Auto) 0.2 (0.0-0.4) % Neut % (Auto) 72.3 (45-73) % Lymph % (Auto) 18.5 L (20-40) % [place] % (Auto) 8.2 (2-11) % Eos % (Auto) 0.6 (0-4) % Baso % (Auto) 0.2 (0-2) % Lymph # (Auto) 0.9 L (1.2-4.9) X10*3/uL [place] # (Auto) 0.4 (0.1-1.2) X10*3/uL Eos # (Auto) 0.0 (0.0-0.4) X10*3/uL Baso # (Auto) 0.0 (0.0-0.2) X10*3/uL Abs Immat Gran (auto) 0.01 (0.00-0.03) X10*3/uL Absolute Neuts (auto) 3.4 (2.0-8.3) x10*3/uL Absolute Nucleated RBC 0.000 (0.0-0.012) X10*3/uL Nucleated RBC % (auto) 0.0 (0.0-0.2) /100WBC PT 12.7 H (10.9-12.4) SEC INR 1.1 (0.9-1.1) Sodium 141 (135-145) mmol/L Potassium 4.9 (3.3-5.1) mmol/L Chloride 105 (96-108) mmol/L Carbon Dioxide 27 (22-29) mmol/L Anion Gap 14 (12-20) BUN 22 H (9-16) mg/dL Creatinine 0.98 (0.5-1.4) mg/dL Estim Creat Clear Calc 41.1 Estimated GFR 55 POC Glucose 32 L* 52 L* (60-115) mg/dL Random Glucose 42 L* (60-115) mg/dL Calcium 10.6 H (8.4-10.2) mg/dL Magnesium 1.9 (1.6-2.6) mg/dL Total Bilirubin 0.2 (0.0-1.0) mg/dL AST 54 H (5-31) U/L ALT 47 H (0-31) U/L Alkaline Phosphatase 66 (39-117) U/L Total Creatine Kinase 286 H (26-140) U/L Troponin I High Sens 67.2 H* (<3.5-17.0) ng/L Total Protein 7.6 (6.5-8.0) g/dL Albumin 4.4 (3.5-5.0) g/dL Lipase 35 (8-78) U/L Urine Color Urine Appearance Urine pH (5.0-9.0) Ur Specific [place] (1.005-1.025) Urine Protein (Neg-Trace) mg/dL Urine Glucose (UA) (Negative) mg/dL Urine Ketones (Negative) mg/dL Urine Blood (Negative) Urine Nitrite (Negative) Ur Leukocyte Esterase (Negative) Urine RBC (0-2) /HPF Urine WBC (0-5) /HPF Ur Squamous Epith Cells (0-2) /HPF Urine Bacteria (None Seen) Hyaline Casts (0-2) /LPF 01/09/24 01/09/24 01/09/24 Range/Units 17:48 18:50 19:55 WBC (4.8-10.8) X10*3/uL RBC (4.20-5.50) X10*6/uL Hgb (12.0-16.0) g/dl Hct (37.0-47.0) % MCV (80.0-98.0) fL MCH (27.0-33.0) pg MCHC (31.0-35.0) g/dl RDW (11.0-16.0) % Plt Count (160-400) X10*3/uL MPV (9.4-12.3) fL Immature Gran % (Auto) (0.0-0.4) % Neut % (Auto) (45-73) % Lymph % (Auto) (20-40) % [place] % (Auto) (2-11) % Eos % (Auto) (0-4) % Baso % (Auto) (0-2) % Lymph # (Auto) (1.2-4.9) X10*3/uL [place] # (Auto) (0.1-1.2) X10*3/uL Eos # (Auto) (0.0-0.4) X10*3/uL Baso # (Auto) (0.0-0.2) X10*3/uL Abs Immat Gran (auto) (0.00-0.03) X10*3/uL Absolute Neuts (auto) (2.0-8.3) x10*3/uL Absolute Nucleated RBC (0.0-0.012) X10*3/uL Nucleated RBC % (auto) (0.0-0.2) /100WBC PT (10.9-12.4) SEC INR (0.9-1.1) Sodium (135-145) mmol/L Potassium (3.3-5.1) mmol/L Chloride (96-108) mmol/L Carbon Dioxide (22-29) mmol/L Anion Gap (12-20) BUN (9-16) mg/dL Creatinine (0.5-1.4) mg/dL Estim Creat Clear Calc Estimated GFR POC Glucose 88 223 H (60-115) mg/dL Random Glucose (60-115) mg/dL Calcium (8.4-10.2) mg/dL Magnesium (1.6-2.6) mg/dL Total Bilirubin (0.0-1.0) mg/dL AST (5-31) U/L ALT (0-31) U/L Alkaline Phosphatase (39-117) U/L Total Creatine Kinase (26-140) U/L Troponin I High Sens (<3.5-17.0) ng/L Total Protein (6.5-8.0) g/dL Albumin (3.5-5.0) g/dL Lipase (8-78) U/L Urine Color Yellow Urine Appearance Clear Urine pH 8.0 (5.0-9.0) Ur Specific [place] 1.015 (1.005-1.025) Urine Protein Negative (Neg-Trace) mg/dL Urine Glucose (UA) Negative (Negative) mg/dL Urine Ketones Negative (Negative) mg/dL Urine Blood Negative (Negative) Urine Nitrite Negative (Negative) Ur Leukocyte Esterase Moderate (2+) H (Negative) Urine RBC 0-2 (0-2) /HPF Urine WBC 11-20 H (0-5) /HPF Ur Squamous Epith Cells 0-2 (0-2) /HPF Urine Bacteria Trace (None Seen) Hyaline Casts 0-2 (0-2) /LPF 10/24/24 Range/Units 20:42 WBC (4.8-10.8) X10*3/uL RBC (4.20-5.50) X10*6/uL Hgb (12.0-16.0) g/dl Hct (37.0-47.0) % MCV (80.0-98.0) fL MCH (27.0-33.0) pg MCHC (31.0-35.0) g/dl RDW (11.0-16.0) % Plt Count (160-400) X10*3/uL MPV (9.4-12.3) fL Immature Gran % (Auto) (0.0-0.4) % Neut % (Auto) (45-73) % Lymph % (Auto) (20-40) % [place] % (Auto) (2-11) % Eos % (Auto) (0-4) % Baso % (Auto) (0-2) % Lymph # (Auto) (1.2-4.9) X10*3/uL [place] # (Auto) (0.1-1.2) X10*3/uL Eos # (Auto) (0.0-0.4) X10*3/uL Baso # (Auto) (0.0-0.2) X10*3/uL Abs Immat Gran (auto) (0.00-0.03) X10*3/uL Absolute Neuts (auto) (2.0-8.3) x10*3/uL Absolute Nucleated RBC (0.0-0.012) X10*3/uL Nucleated RBC % (auto) (0.0-0.2) /100WBC PT (10.9-12.4) SEC INR (0.9-1.1) Sodium (135-145) mmol/L Potassium (3.3-5.1) mmol/L Chloride (96-108) mmol/L Carbon Dioxide (22-29) mmol/L Anion Gap (12-20) BUN (9-16) mg/dL Creatinine (0.5-1.4) mg/dL Estim Creat Clear Calc Estimated GFR POC Glucose (60-115) mg/dL Random Glucose (60-115) mg/dL Calcium (8.4-10.2) mg/dL Magnesium (1.6-2.6) mg/dL Total Bilirubin (0.0-1.0) mg/dL AST (5-31) U/L ALT (0-31) U/L Alkaline Phosphatase (39-117) U/L Total Creatine Kinase (26-140) U/L Troponin I High Sens 61.7 H* (<3.5-17.0) ng/L Total Protein (6.5-8.0) g/dL Albumin (3.5-5.0) g/dL Lipase (8-78) U/L Urine Color Urine Appearance Urine pH (5.0-9.0) Ur Specific [place] (1.005-1.025) Urine Protein (Neg-Trace) mg/dL Urine Glucose (UA) (Negative) mg/dL Urine Ketones (Negative) mg/dL Urine Blood (Negative) Urine Nitrite (Negative) Ur Leukocyte Esterase (Negative) Urine RBC (0-2) /HPF Urine WBC (0-5) /HPF Ur Squamous Epith Cells (0-2) /HPF Urine Bacteria (None Seen) Hyaline Casts (0-2) /LPF Independent Interpretation I performed an independent interpretation of an: CT Scan Interpretation: CT head without bleed or skull fracture CT c spine without fracture CT facial bones without fracture EKG showing sinus bradycardia with 1st degree av block, rate of 58 bpm, no acute ischemic changes or ST elevations Radiology Impression Discussion of test interpretation with radiology: I have reviewed the radiologist's reading. Radiologist Impression: EXAMINATION: CT HEAD WITHOUT CONTRAST CT FACIAL BONES WITHOUT CONTRAST CT CERVICAL SPINE WITHOUT CONTRAST CLINICAL INFORMATION: Fall. Forehead contusion. Head strike. Patient on blood thinners. COMPARISON: None available. TECHNIQUE: Imaging was performed from the skull base to vertex without intravenous administration of contrast. In addition, helical noncontrast CT imaging was acquired through the cervical spine and facial bones and source images were reviewed along with axial reconstructions and sagittal and coronal MPRs. This CT examination was performed using dose optimization techniques as appropriate, variously including the following: *Automated exposure control. *Adjustment of mA and/or kV according to patient size (this includes techniques or standardized protocols for targeted exams where dose is matched to indication/reason for exam; i.e. extremities or head). *Use of iterative reconstruction technique. DLP: 1171 mGy-cm FINDINGS: Head: There is no evidence of acute intracranial hemorrhage or edematous territorial infarction. Salter-white matter differentiation is preserved. Scattered and partially confluent hypoattenuation in the periventricular and deep white matter are consistent with moderate microangiopathy. Proportional prominence of the ventricles and sulcal spaces without evidence of obstructive hydrocephalus. No abnormal mass effect or midline shift. No extra-axial fluid collections. Calcific atherosclerotic disease of the intracranial internal carotid and vertebral arteries. No hyperdense vessel sign. Small subgaleal hematoma along the right aspect of the frontal bone, measuring up to 0.2 cm in depth. No associated acute osseous calvarial abnormalities. Maxillofacial Bones: No evidence of maxillofacial bone fractures. The zygomatic arches remain intact. No nasal bone fracture. The nasal septum remains midline. No evidence of mandibular or maxillary fracture. The mandibular condyles remain well-seated in their respective temporal articular grooves. Mild degenerative arthropathy of the temporomandibular joints. Normal appearance of the intraconal and extraconal fat. No evidence of traumatic injury to the extraocular musculature or globes. Complete opacification of the left maxillary sinus with mild hyperostotic changes of the niño. Osseous covering of the roots of the maxillary left 1st molar. Mild mucosal thickening of the paranasal sinuses. The mastoid air cells and middle ear cavities are clear. Multifocal odontogenic enamel erosions and periapical lucencies. Cervical Spine: The atlantooccipital and atlantoaxial articulations remain well aligned. Mild reversal the normal cervical lordosis. Otherwise, there is anatomic alignment of the vertebral bodies and posterior elements. No evidence of acute fracture or subluxation. The vertebral body heights are maintained. Moderate degenerative disc disease from C5-C7. Mild to moderate degenerative disc disease at all additional levels. Mild ossification of the posterior longitudinal ligament from C5-C6. Facet and uncovertebral joint arthropathy leads to osseous encroachment on the neural foramina from C3-C7. There is no prevertebral soft tissue swelling. The thyroid gland and remaining cervical soft tissues are within normal limits. Left pectoral pacemaker. The lung apices demonstrate no abnormalities. CT/CT head/brain wo IV con IMPRESSION: 1. No evidence of acute intracranial hemorrhage or edematous territorial infarction. Moderate underlying microangiopathy and generalized cerebral volume loss. 2. No evidence of acute fracture or traumatic subluxation of the cervical spine. Moderate multilevel degenerative spondyloarthropathy of the cervical spine. 3. No evidence of acute fracture of the maxillofacial bones. 4. Complete opacification of the left maxillary sinus with osseous covering of the roots of the maxillary left 1st molar suggestive of odontogenic sinusitis. Electronically signed by: Shola Goetz 01/09/2024 06:44 PM EDT RP Independent Historian Clinical information obtained from an independent historian. History obtained from or confirmed by: EMS External Record Review External record reviewed: Inpatient record, Office record, Outpatient record, Prior outpatient labs, Prior outpatient radiology, Primary care record and Outside ED record Prescription Management I considered prescription management with: Pain Medication Chronic Conditions Patient?s care impacted by: Diabetes Social Determinants Patient?s care significantly limited by Social Determinants of Health including: Other Social Determinant of Health Critical Care Time Critical Care Time Critical Care Time: Yes Total Critical Care Time: 40 Attestation: Critical care time in the amount of 40 minutes has been provided to the patient in terms of direct patient care, frequent reevaluation after IV dextrose, review and interpretation of medical data and results, and management of potentially life-threatening conditions. This is all outside of any medical procedures. Discharge Plan Discharge Clinical Impression: Hypoglycemia, Fall Patient Disposition: Home, Self-Care Instructions: Fall Prevention (ED) Additional Instructions: You were evaluated in the ED today after a fall. Your blood sugar was found to be dangerously low. This was corrected in the ED today. I have suspicion that your low blood sugar caused your fall. As discussed, please discontinue your glimepride as this can drop your blood sugar. Continue all other home medications, including your metformin. Your urine also shows infection. Ceftin is an antibiotic that has been sent to your pharmacy for treatment. Take this as prescribed for 7 days. Do not skip any doses or finish this early. Please follow up with your primary care provider this week regarding your visit. Return with new or worsening symptoms. In the case of an emergency call 911. Prescriptions: New cefuroxime axetil 500 mg tablet 500 mg PO BID 7 Days Qty: 14 0RF No Action (DME) lancets [OneTouch Delica Lancets] 33 gauge misc See Rx Instructions .ROUTE .COMPLEX Qty: 100 0RF Dose Instruction: USE TO TEST DAILY Rx Instructions: USE TO TEST DAILY meloxicam 15 mg tablet 15 mg PO DAILY Qty: 30 1RF (DME) cane Device See Rx Instructions .Route Qty: 1 0RF Rx Instructions: Need for quad cane rosuvastatin 40 mg tablet 40 mg PO DAILY Qty: 90 3RF metoprolol succinate 25 mg tablet extended release 24 hr 25 mg PO BID Qty: 180 3RF metformin 750 mg tablet extended release 24 hr 750 mg PO BID Qty: 180 1RF spironolactone 25 mg tablet 25 mg PO DAILY Qty: 90 1RF furosemide 20 mg tablet 20 mg PO DAILY Qty: 90 1RF lisinopril 10 mg tablet 10 mg PO DAILY Qty: 90 1RF glimepiride 4 mg tablet 4 mg PO DAILY Qty: 90 1RF gabapentin [Neurontin] 300 mg capsule 300 mg PO BID 90 Days Qty: 180 1RF aspirin [Adult Low Dose Aspirin] 81 mg tablet,delayed release (DR/EC) 81 mg PO DAILY (DME) OneTouch Ultra Test Strip See Rx Instructions .ROUTE .MEDSUPPLY Qty: 10 Rx Instructions: As directed (DME) blood-glucose meter [OneTouch Ultra2 Meter] [facility] [place] Instructions Not Applicable BEDTIME Qty: 1 Rx Instructions: As directed Interventions: ED Discharge Assessment Last Done: 01/09/24 21:26 Discharge Date/Time: 01/09/24 21:27 Print Language: Serbian
--- NOTE | 2024-01-09 16:30 | ECG_ITS ---
Test Reason : FALL Blood Pressure : / mmHG Vent. Rate : 058 BPM Atrial Rate : 058 BPM P-R Int : 274 ms QRS Dur : 090 ms QT Int : 386 ms P-R-T Axes : 054 -70 -06 degrees QTc Int : 378 ms Sinus bradycardia with 1st degree A-V block Left axis deviation Inferior infarct , age undetermined Anterolateral infarct (cited on or before 23-AUG-2008) Abnormal ECG When compared with ECG of 23-AUG-2008 14:50, Significant changes have occurred Referred By: Dary Grant Electronically Signed By:Jerrod Julien
[2024-01-09 17:16] LABS: Glucose, Whole Blood 32 mg/dL (60-115)
[2024-01-09 17:25] LABS: MANUAL DIFF FLAG NO
[2024-01-09 17:27] LABS: Basophils Percent Auto 0.2 % (0-2); Eosinophils Percent Auto 0.6 % (0-4); Hemoglobin 10.8 g/dl (12.0-16.0); Imm Gran Abs Auto 0.01 X10*3/uL (0.00-0.03); Imm Gran Pct Auto 0.2 % (0.0-0.4); Lymphocytes Absolute Auto 0.9 X10*3/uL (1.2-4.9); Lymphocytes Percent Auto 18.5 % (20-40); Mean Corpuscular HGB Conc 32.7 g/dl (31.0-35.0); Mean Corpuscular Hemoglobin 30.3 pg (27.0-33.0); Mean Corpuscular Volume 92.4 fL (80.0-98.0); Mean Platelet Volume 8.3 fL (9.4-12.3); Monocytes Absolute Auto 0.4 X10*3/uL (0.1-1.2); Monocytes Percent Auto 8.2 % (2-11); Neutrophils Absolute Auto 3.4 x10*3/uL (2.0-8.3); Neutrophils Percent Auto 72.3 % (45-73); Platelet Count 193 X10*3/uL (160-400); Red Blood Count 3.57 X10*6/uL (4.20-5.50); Red Cell Distribution Width 12.7 % (11.0-16.0); White Blood Count 4.7 X10*3/uL (4.8-10.8)
[2024-01-09 17:32] LABS: Glucose, Whole Blood 52 mg/dL (60-115)
[2024-01-09 17:32] LABS: INTERNATIONAL NORM RATIO 1.1 (0.9-1.1); Prothrombin Time 12.7 SEC (10.9-12.4)
[2024-01-09] MEDS: Acetaminophen 325 MG TABLET 650 MG PO (17:39)
[2024-01-09 17:51] LABS: Glucose, Whole Blood 88 mg/dL (60-115)
[2024-01-09 17:53] LABS: Alanine Aminotransferase 47 U/L (0-31); Albumin Level 4.4 g/dL (3.5-5.0); Alkaline Phosphatase 66 U/L (39-117); Anion Gap 14 (12-20); Aspartate Amino Transferase 54 U/L (5-31); Bilirubin Total 0.2 mg/dL (0.0-1.0); Blood Urea Nitrogen 22 mg/dL (9-16); Calcium 10.6 mg/dL (8.4-10.2); Carbon Dioxide 27 mmol/L (22-29); Chloride 105 mmol/L (96-108); Creatinine Clr Calc Pharmacy 41.1; Estimated Glomerular Filt Rate 55; Glucose Random 42 mg/dL (60-115); Lipase 35 U/L (8-78); Magnesium 1.9 mg/dL (1.6-2.6); Potassium 4.9 mmol/L (3.3-5.1); Sodium 141 mmol/L (135-145); Total Protein 7.6 g/dL (6.5-8.0)
[2024-01-09 17:54] LABS: Troponin-I High Sensitivity 67.2 ng/L (<3.5-17.0)
[2024-01-09] MEDS: Dextrose 10 % 250 ML 750 ML IV (18:01)
[2024-01-09 18:19] VITALS: BP 97/53; PULSE 61; RESP 16; TEMP 36.6; O2SAT 99
[2024-01-09 18:55] LABS: Glucose, Whole Blood 223 mg/dL (60-115)
[2024-01-09 20:01] LABS: Appearance Urine Clear; Color Urine Yellow; Glucose Urine UA Negative (Negative); Leukocyte Esterase Urine Moderate (2+) (Negative); Nitrite Urine Negative (Negative); Specific Gravity - Urine 1.015 (1.005-1.025); UMIC TRIGGER UACC YES; Urine Blood Negative (Negative); Urine Ketones Negative (Negative); Urine Protein Negative (Neg-Trace)
[2024-01-09 20:04] LABS: Bacteria Urine Trace (None Seen); Hyaline Casts Urine 0-2 /LPF (0-2); RBC Urine 0-2 /HPF (0-2); Squamous Epithelial Cell Urine 0-2 /HPF (0-2); UACC Culture Trigger YES
[2024-01-09 20:38] VITALS: BP 115/71; PULSE 64; RESP 14; TEMP 36.9; O2SAT 98
--- NOTE | 2024-01-09 21:03 | PC.NURSE ---
pt ambulated to and from with this RN using a walker. steady gait. obtained urine sample and sent to lab. waiting for repeat trop result. pt given sandwich and decaf tea. call lopez within reach, plan of care ongoing
[2024-01-09 21:15] LABS: Troponin-I High Sensitivity 61.7 ng/L (<3.5-17.0)
[2024-01-09] MEDS: Ibuprofen 600 MG TABLET PO (21:16)
[2024-01-09 21:26] VITALS: BP 115/71; PULSE 64; RESP 14; TEMP 36.9; O2SAT 98
== END 2024-01-09 21:27 | disposition home or self-care (01) ==
PROVIDERS: Physician Assistant Medical; Emergency Provider Emergency Medicine
DX: S09.90XA Unspecified injury of head, initial encounter (principal); E11.649 Type 2 diabetes mellitus with hypoglycemia without coma; R51.9 Headache, unspecified; R00.1 Bradycardia, unspecified; I25.10 Atherosclerotic heart disease of native coronary artery without angina pectoris; I44.0 Atrioventricular block, first degree; W19.XXXA Unspecified fall, initial encounter; Y93.9 Activity, unspecified; Y92.002 Bathroom of unspecified non-institutional (private) residence as the place of occurrence of the external cause; Y99.8 Other external cause status; Z79.01 Long term (current) use of anticoagulants; Z23 Encounter for immunization; Z79.899 Other long term (current) drug therapy; Z79.84 Long term (current) use of oral hypoglycemic drugs
CPT/HCPCS: 36415; 70450; 70486; 72125; 80048; 80053; 80061; 80076; 81001; 81003; 82043; 82550; 82570; 82947; 83036; 83690; 83735; 84443; 84484; 85025; 85027; 85610; 87086; 90471; 90656; 93005; 96365; 99212; 99285

== ENCOUNTER → 2024-01-09 16:30 | Outpatient (BNV) | payer MEDICARE, MEDICAID, SELFPAY | PROVIDERS: Emergency Provider Emergency Medicine; Visit Provider Internal Medicine Cardiovascular Disease | DX: I44.0 Atrioventricular block, first degree (principal) | CPT/HCPCS: 93010 ==

== ENCOUNTER → 2024-04-06 23:59 | Outpatient (BNV) | payer MEDICARE, MEDICAID, SELFPAY ==
--- NOTE | 2024-04-08 09:40 | MHC.OFFVIS ---
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 Surgical History History of implantable cardioverter-defibrillator (ICD) insertion History of heart artery stent History of placement of internal cardiac defibrillator History of cardiac defibrillator placement Family History Father Medical history unknown Mother Medical history unknown Social History Housing: Apartment Alcohol intake: never Patient Tobacco Use Status: Never used Tobacco Tobacco use type: Cigarette e-Cigarette/Vaping Use: Never Used Second Hand Smoke Exposure: No Advance Directives Date on File: 10/24/22 service: No Current occupational status: retired Cognitive needs: Yes (cane) Hearing needs: No Vision needs: Yes (glasses) Office Procedures Cardiac Device Check Cardiac Device Check Details: Date of service 04/06/2024; Battery life 78%; normal lead parameters; no treated VT/VF; normal ICD function. [id number] Cardiac Interrogation, implant defibrillator w/interim Procedure code (CPT) selection complete Assessment & Plan Assessment & Plan (1) Presence of automatic (implantable) cardiac defibrillator: Code(s): Z95.810 - Presence of automatic (implantable) cardiac defibrillator Category: Medical (2) Ischemic cardiomyopathy: Code(s): I25.5 - Ischemic cardiomyopathy Category: Medical Plan x Coding Level of Care Code Procedure Only Diagnoses Presence of automatic (implantable) cardiac defibrillator Z95.810 Ischemic cardiomyopathy I25.5 CPT Codes Cardiac Device Check - Cardiac Device 13: [id number] Cardiac Interrogation, implant defibrillator w/interim ([id number])
== END ==
PROVIDERS: PCP Internal Medicine; Visit Provider Internal Medicine
DX: I25.5 Ischemic cardiomyopathy (principal); Z95.810 Presence of automatic (implantable) cardiac defibrillator
CPT/HCPCS: 93295

== ENCOUNTER 2024-04-27 09:48 | Outpatient (AMB) | payer MEDICARE, MEDICAID, SELFPAY ==
--- NOTE | 2024-04-27 09:51 | MHC.OFFVIS ---
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 Accompanied by: Self / Same As Patient Allergies No Known Allergies Allergy (Verified 01/09/24 16:04) Medication List - Last Reconciled 04/27/24 by Narinder Kramer MD aspirin (Adult Low Dose Aspirin) 81 mg PO DAILY blood sugar diagnostic ([employer] Ultra Test strips) As directed blood-glucose meter (Microstrip Plan[employer] Antennas Ultra2 Meter) As directed cane Need for quad cane furosemide 20 mg PO DAILY gabapentin (Neurontin) 300 mg PO BID 90 days lancets (Microstrip Planar Antennas Delica Lancets) USE TO TEST DAILY lisinopril 10 mg PO DAILY metformin ER 750 mg PO BID metoprolol succinate ER 25 mg PO BID rosuvastatin 40 mg PO DAILY spironolactone 25 mg PO DAILY HPI Comments Details: Mihaela returns for follow-up regarding ischemic cardiomyopathy. To recall, she had a myocardial infarction in 2005 and underwent LAD stenting. Since last seen, she states she is feeling good. No cardiac complaints like angina or shortness of breath or in fact anything along those lines. Seems to be getting along. She is frail from age as well as comorbidities. [facility] Medical History Encounter for colorectal cancer screening using Cologuard test (~11/15/21) Ischemic cardiomyopathy Presence of automatic (implantable) cardiac defibrillator Unspecified systolic (congestive) heart failure Borderline hypercholesterolemia Atherosclerotic heart disease of [place] coronary artery without angina pectoris Arthritis of right hip Type 2 diabetes mellitus with diabetic polyneuropathy Surgical History History of implantable cardioverter-defibrillator (ICD) insertion History of heart artery stent History of placement of internal cardiac defibrillator History of cardiac defibrillator placement Family History Father Medical history unknown Mother Medical history unknown Social History Housing: Apartment Alcohol intake: never Patient Tobacco Use Status: Never used Tobacco Tobacco use type: Cigarette e-Cigarette/Vaping Use: Never Used Second Hand Smoke Exposure: No Advance Directives Date on File: 10/24/22 service: No Current occupational status: retired Cognitive needs: Yes (cane) Hearing needs: No Vision needs: Yes (glasses) Review of Systems Const Denies chills, Denies fatigue, Denies fever(s), Denies weight gain and Denies weight loss ENT Denies dizziness Card Denies chest pain, Denies leg edema, Denies lightheadedness, Denies palpitations, Denies dyspnea on exertion, Denies orthopnea and Denies other Resp Denies cough and Denies dyspnea on exertion GI Denies hematochezia and Denies change in stool character Musc Denies abnormal gait, Denies muscle weakness, Denies numbness, Denies radiating pain into limb and Denies tingling Neuro Denies abnormal gait, Denies dizziness, Denies numbness and Denies tingling Endo Denies fatigue and Denies palpitations Physical Exam Vital Signs: Last Vital Signs Pulse 65 04/27/24 09:58 BP 100/50 L 04/27/24 09:58 BMI result Body Mass Index 22.1 Const General: comfortable and no acute distress Orientation/consciousness: patient oriented x3 HEENT Other: Unremarkable Head: Yes normal to inspection Neck Neck: Yes normal visual inspection Chest Chest palpation & inspection: normal inspection of the chest Resp Auscultation: clear to auscultation bilaterally Cardio Palpation: normal PMI Heart sounds: S1 normal heart sound present, S2 normal heart sound present, no gallops, no murmurs and no rubs GI Palpation (GI): Soft to palpation Back/Spine/Pelvis Other: unremarkable Skin General skin exam: no rashes or lesions noted Neuro General: patient oriented x3 Extrem General: Yes normal to inspection Psych Mental Status: mental status grossly normal Assessment & Plan Assessment & Plan (1) Ischemic cardiomyopathy: Code(s): I25.5 - Ischemic cardiomyopathy Category: Medical Plan: In the last echocardiogram, LVEF 15-20%. Wall motion abnormality in LAD territory. Continue low-dose beta-blockers, lisinopril, spironolactone. On small dose of diuretic as well. Can consider Farxiga or Jardiance, but it seems that she has had hyperglycemia few months back. Also runs lowish blood pressures. (2) Atherosclerotic heart disease of [place] coronary artery without angina pectoris: Code(s): I25.10 - Atherosclerotic heart disease of [place] coronary artery without angina pectoris Category: Medical Plan: Myocardial perfusion imaging study shows a large LAD territory infarct. Continue aspirin, statins. Last LDL 45 mg/dl. (3) Essential hypertension: Code(s): I10 - Essential (primary) hypertension Category: Medical Plan: Runs lowish blood pressures but otherwise stable. (4) Type 2 diabetes mellitus with unspecified complications: Code(s): E11.8 - Type 2 diabetes mellitus with unspecified complications Category: Medical Plan: Most recent hemoglobin A1c is 5.6%. On Metformin. (5) Presence of automatic (implantable) cardiac defibrillator: Code(s): Z95.810 - Presence of automatic (implantable) cardiac defibrillator Category: Medical Plan: Normal function. Can follow remotely. Coding Level of Care Code Est Pt Level 4 (38392) Diagnoses Ischemic cardiomyopathy I25.5 Atherosclerotic heart disease of [place] coronary artery without angina pectoris I25.10 Essential hypertension I10 Type 2 diabetes mellitus with unspecified complications E11.8 Presence of automatic (implantable) cardiac defibrillator Z95.810
[2024-04-27 09:58] VITALS: BP 100/50; PULSE 65; BMI 22.1
== END 2024-04-27 10:24 | disposition home or self-care (01) ==
PROVIDERS: PCP Internal Medicine; Visit Provider Internal Medicine
DX: I25.5 Ischemic cardiomyopathy (principal); I25.10 Atherosclerotic heart disease of native coronary artery without angina pectoris; I10 Essential (primary) hypertension; E11.8 Type 2 diabetes mellitus with unspecified complications; Z95.810 Presence of automatic (implantable) cardiac defibrillator
CPT/HCPCS: 99214

== ENCOUNTER → 2024-04-27 09:48 | Outpatient (BNVA) | payer MEDICARE, MEDICAID, SELFPAY | PROVIDERS: PCP Internal Medicine; Visit Provider Internal Medicine | DX: I25.5 Ischemic cardiomyopathy (principal); I42.8 Other cardiomyopathies; I25.10 Atherosclerotic heart disease of native coronary artery without angina pectoris; I10 Essential (primary) hypertension; E11.8 Type 2 diabetes mellitus with unspecified complications; Z95.810 Presence of automatic (implantable) cardiac defibrillator | CPT/HCPCS: 99212 ==

== ENCOUNTER → 2024-05-08 23:59 | Outpatient (BNV) | payer MEDICARE, MEDICAID, SELFPAY ==
--- NOTE | 2024-05-11 19:12 | A.OFFVIS_ITS ---
Intake Visit Reasons: Remote HF monitoring- [employer] Allergies No Known Allergies Allergy (Verified 01/09/24 16:04) [facility] Medical History Encounter for colorectal cancer screening using Cologuard test (~11/15/21) Ischemic cardiomyopathy Presence of automatic (implantable) cardiac defibrillator Unspecified systolic (congestive) heart failure Borderline hypercholesterolemia Atherosclerotic heart disease of [place] coronary artery without angina pectoris Arthritis of right hip Type 2 diabetes mellitus with diabetic polyneuropathy Surgical History History of implantable cardioverter-defibrillator (ICD) insertion History of heart artery stent History of placement of internal cardiac defibrillator History of cardiac defibrillator placement Family History Father Medical history unknown Mother Medical history unknown Social History Housing: Apartment Alcohol intake: never Patient Tobacco Use Status: Never used Tobacco Tobacco use type: Cigarette e-Cigarette/Vaping Use: Never Used Second Hand Smoke Exposure: No Advance Directives Date on File: 10/24/22 service: No Current occupational status: retired Cognitive needs: Yes (cane) Hearing needs: No Vision needs: Yes (glasses) Office Procedures Cardiac Device Check Cardiac Device Check Details: Date of service- 05/08/2024; based on impedance data and physiological variables, there is no evidence of worsening congestive heart failure. [id number] Cardiac Device Interrogation, cardio physiologic monitor Procedure code (CPT) selection complete Assessment & Plan Assessment & Plan (1) Presence of automatic (implantable) cardiac defibrillator: Code(s): Z95.810 - Presence of automatic (implantable) cardiac defibrillator Category: Medical (2) Ischemic cardiomyopathy: Code(s): I25.5 - Ischemic cardiomyopathy Category: Medical Plan x Coding Level of Care Code Procedure Only Diagnoses Presence of automatic (implantable) cardiac defibrillator Z95.810 Ischemic cardiomyopathy I25.5 CPT Codes Cardiac Device Check - Cardiac Device 15: [id number] Cardiac Device Interrogation, cardio physiologic monitor ([id number])
== END ==
PROVIDERS: PCP Internal Medicine; Visit Provider Internal Medicine
DX: I25.5 Ischemic cardiomyopathy (principal); Z95.810 Presence of automatic (implantable) cardiac defibrillator
CPT/HCPCS: 93297

== ENCOUNTER 2024-05-21 09:19 | Outpatient (AMB) | payer MEDICARE, MEDICAID, SELFPAY ==
--- NOTE | 2024-05-21 09:50 | A.OFFPC_ITS ---
Vital Signs 05/21/24 09:51 Height 5 ft 4 in Weight 135 lb BMI 23.2 BP 100/60 Blood Pressure Location Lt brachial Position Sitting Pulse 64 Pulse Source Pulse Oximeter Temp 97.1 F Temp Source Temporal Artery Scan Pulse Oximetry (%) 99 Oxygen Delivery Method Room Air Intake Visit Reasons: DM Intake Note: Patient is here to follow up on DM. Complaint of lower back pain, requesting for xray. Supervisor Finishing Required: No Ip Network Architect: Not Required per policy Accompanied by: Self / Same As Patient Allergies No Known Allergies Allergy (Verified 05/21/24 09:51) Tobacco use date assessed: 05/21/24 Fall risk assessment: No Falls in past year Last assessed Fall Risk: 05/21/24 Dental Screening Dental Screen Date: 05/21/24 Did you have a dental visit in the last 12 months?: Yes Did you have a dental problem in the last 6 months where you did not have access to dental care?: No Was dental information given to patient?: Patient has dentist [facility] Medical History Encounter for colorectal cancer screening using Cologuard test (~11/15/21) Ischemic cardiomyopathy Presence of automatic (implantable) cardiac defibrillator Unspecified systolic (congestive) heart failure Borderline hypercholesterolemia Atherosclerotic heart disease of tribe coronary artery without angina pectoris Arthritis of right hip Type 2 diabetes mellitus with diabetic polyneuropathy Surgical History History of implantable cardioverter-defibrillator (ICD) insertion History of heart artery stent History of placement of internal cardiac defibrillator History of cardiac defibrillator placement Family History Father Medical history unknown Mother Medical history unknown Social History Housing: Apartment Alcohol intake: never Patient Tobacco Use Status: Never used Tobacco Tobacco use type: Cigarette e-Cigarette/Vaping Use: Never Used Second Hand Smoke Exposure: No Advance Directives Date on File: 10/24/22 service: No Current occupational status: retired Cognitive needs: Yes (cane) Hearing needs: No Vision needs: Yes (glasses) Questionnaire PHQ-9 Over the last 2 weeks, how often have you been bothered by any of the following problems? 1. Little interest or pleasure in doing things: not at all 2. Feeling down, depressed, or hopeless: not at all 3. Trouble falling or staying asleep, or sleeping too much: not at all 4. Feeling tired or having little energy: not at all 5. Poor appetite or overeating: not at all 6. Feeling bad about yourself - or that you are a failure or have let yourself or your family down: not at all 7. Trouble concentrating on things, such as reading the newspaper or watching television: not at all 8. Moving or speaking so slowly that other people could have noticed. Or the opposite - being so fidgety or restless that you have been moving around a lot more than usual: not at all 9. Thoughts that you would be better off or of hurting yourself in some way: not at all Total score: 0 Depression Screening Interpretation: Negative Depression Screening Done: Yes Source: Developed by Drs. Alonzo Hays, Cordelia Irby, Arthur Aden and colleagues, with an educational maciej from [employer]. Thrive Questionnaire Date Thrive assessed: 05/21/24 I am a: Patient What is your living situation today?: I have a steady place to live Within the past 12 months, did the food you bought not last and you didn't have the money to get more?: Never true Within the past 12 months, did you worry whether your food would run out before you got money to buy more?: Never true Do you have trouble paying for medicines?: No Do you have trouble getting transportation to medical appointments?: No Do you have trouble paying your heating and electricity bill?: No Do you have trouble taking care of your child, family member or friend?: No Do you have trouble with day-to-day activities such as bathing, preparing meals, shopping, managing finances, etc.?: No Are you currently unemployed and looking for a job?: No Are you interested in more education?: No Please select the resources that you would like help with: None Currently or been in a relationship where the following occur: No concerns reported THRIVE Score: 0 AUDIT C Alcohol Use Questionnaire (AUDIT-C) 1. How often do you have a drink containing alcohol?: Never Total Score: 0 DIANA-7 AMB Questionnaire DIANA-7 Date DIANA - 7 assessed: 05/21/24 Feeling nervous, anxious, or on edge: 0 = Not at all Not being able to stop or control worryin = Not at all Worrying too much about different things: 0 = Not at all Trouble relaxin = Not at all Being so restless that it is hard to sit still: 0 = Not at all Becoming easily annoyed or irritable: 0 = Not at all Feeling afraid as if something awful might happen: 0 = Not at all Total DIANA-7 score (0-4 normal; 5-9 mild; 10-14 moderate; 15-21 severe): 0 Source: Developed by Drs. Alonzo Hays, Cordelia Irby, Arthur Aden and colleagues, with an educational maciej from [employer]. Physical exam (Primary Care) Vital Signs: Last Vital Signs Temp 97.1 F 05/21/24 09:51 Pulse 64 05/21/24 09:51 BP 100/60 05/21/24 09:51 Pulse Ox 99 05/21/24 09:51 Oxygen Delivery Method Room Air 05/21/24 09:51 Care Plan Goal for BP management: BP is in range. BMI result Body Mass Index 23.2 Tobacco/Smoking Status: Tobacco use Status Tobacco use date assessed 05/21/24 05/21/24 10:07 Patient Tobacco Use Status Never used Tobacco 05/21/24 10:07 Tobacco use type Cigarette 05/21/24 10:07 e-Cigarette/Vaping Use Never Used 05/21/24 10:07 PHQ-9: PHQ-9 Score PHQ-9: Total score 0 05/21/24 10:07 Depression Screening Interpretation: Negative Thrive Assessment: Date of Thrive Assessment Date Thrive assessed 05/21/24 05/21/24 10:07 Currently or been in a relationship where the following occur: No concerns reported Advance Care Planning discussion: Exists, not on file Date of discussion: 05/21/24 Who was present: Patient Forms completed: Health Care Proxy and MOLST Time spent: 1-15 minutes, not on file Results AMB Hemoglobin A1c AMB Hemoglobin A1c 7.8 % Last Edit by ARMIDA Bergeron on 05/21/24 10:11 Results Reviewed Results Reviewed: Laboratory Last Values Hgb A1c (Clinic) 7.8 % (4.0-6.0) H 05/21/24 09:48 Coding Level of Care Code Est Pt Level 4 (54391) Complex EM visit Add On G2211 Diagnoses Systolic congestive heart failure, unspecified HF chronicity I50.20 Heart failure chronicity: unspecified Essential hypertension I10 Type 2 diabetes mellitus with diabetic polyneuropathy, without long-term current use of insulin E11.42 Diabetes mellitus longitudinal float operator insulin use: without senior care use Arthritis of right hip M16.11 Additional Codes Vital Signs *Quality* - Advance Care Planning discussion: Exists, not on file ([id number]) Vital Signs *Quality* - Time spent: 1-15 minutes, not on file ([id number]) Assessment & Plan Assessment & Plan (1) Unspecified systolic (congestive) heart failure: Code(s): I50.20 - Unspecified systolic (congestive) heart failure Category: Medical Qualifiers: Heart failure chronicity: unspecified Qualified Code(s): I50.20 - Unspecified systolic (congestive) heart failure Plan: Saw cardiology last month. Condition is stable. Declines to take Jardiance. (2) Essential hypertension: Code(s): I10 - Essential (primary) hypertension Category: Medical Plan: BP is stable. Continue current medications (3) Type 2 diabetes mellitus with diabetic polyneuropathy: Code(s): E11.42 - Type 2 diabetes mellitus with diabetic polyneuropathy Category: Medical Qualifiers: Diabetes mellitus longitudinal float operator insulin use: without longitudinal float operator use Qualified Code(s): E11.42 - Type 2 diabetes mellitus with diabetic polyneuropathy Plan: A1c is elevated. Does not want to take extra meds. Will continue to work on her diet. (4) Arthritis of right hip: Code(s): M16.11 - Unilateral primary osteoarthritis, right hip Category: Medical Plan: Patient has been offered a steroid injection in the past. Does not want to consider it currently. Plan History of Present Illness The patient is a 74-year-old female presenting with back pain management and review of osteoarthritis. She describes back pain worsened by walking possibly due to poor biomechanics secondary to osteoarthritis of the hip. Although she received a previous x-ray confirming hip osteoarthritis, the related back pain remains pronounced, with heating pads offering some relief. The patient is now contemplating the potential benefit of a steroid injection. Additionally, she mentioned an elevation in blood glucose levels noted in a recent assessment, which she partially attributes to having consumed a peppermint. Social History Review of Systems - Musculoskeletal: Reports back pain. - Endocrine: Reports elevated blood glucose levels. Physical Exam General: Cooperative and healthy appearing Nutritional Appearance: Well nourished Orientation/consciousness: Patient oriented x3 Limitations: No limitations Head: Normal to inspection General: Appearance normal, both eyes and all related structures Neck: Normal visual inspection Chest: Normal palpation of entire chest wall Respiratory: Normal respiratory effort Neurology: Patient oriented x3 Results - Imaging: Previous x-ray indicated osteoarthritis of the hip. Plan The current management includes reconsideration of a steroid injection for osteoarthritis, with an orthopedic referral for further evaluation. Muscle relaxants may assist in alleviating nocturnal discomfort. Continued monitoring of glucose levels is necessary to ensure stability or to identify potential next steps if elevations persist. Patient was informed and verbally consented to the use of an ambient scribe for clinic note documentation during this visit. Discussion Notes I discussed with the patient her ongoing back pain in relation to her hip osteoarthritis. I encouraged reconsideration of steroid injection therapy, highlighting its potential to improve gait and reduce back strain. She voiced a willingness for further evaluation by orthopedics. Additionally, I advised use of muscle relaxants to determine if sleep would improve. For elevated blood sugar, I acknowledged her concern regarding recent dietary intake but emphasized the importance of continued monitoring. I set a follow-up in three months to assess progress and any interventions undertaken. Patient Instructions - Consider steroid injection to help alleviate hip and back pain. - Use a heating pad for temporary relief of back pain. - Take prescribed muscle relaxant at night to help with sleep. - Monitor blood glucose levels regularly. - Await referral to orthopedics for further evaluation. - Return for follow-up in three months. - Notify immediately if symptoms worsen or new concerns arise. Orders: Orders AMB Hemoglobin A1c Today E11.42 - Type 2 diabetes mellitus with diabetic polyneuropathy
[2024-05-21 09:51] VITALS: BP 100/60; PULSE 64; TEMP 36.2; O2SAT 99; BMI 23.2
--- OUTSIDE RECORDS SUMMARY | 2024-05-21 10:24 | XMS_ITS | Data Portability ---
Author Organization [facility] [address] Address [address] [place] [address] Assessment No assessment recorded. Plan of Treatment Reminders Order Date Submit Date Provider Last Modified By Organization Details Last Modified Time Details Appointments None recorded. Lab None recorded. Referral None recorded. Procedures None recorded. Surgeries None recorded. Imaging None recorded. Medication Orders amoxicillin 875 mg-potassiu m clavulanate 125 mg tablet 2021 022 [facility] #[id number], [address] [place], [address], 2 12:59:07 benzonatate 200 mg capsule 2021 022 [facility] #[id number], [address] [place], [address], 2 12:59:06 loratadine 10 mg tablet 2021 022 [facility] #[id number], [address] [place], [address], 2 12:59:06 Patient TargetsNo targets recorded. Patient Instructions Encounter Date Encounter Id Patient Instructions Last Modified By Organization Details Last Modified Time 02/20/2022 [id number] cough: care instructions Not available 02/20/2022 12:59:03 You are being treated for a sinusitis/cough. Currently your exam does not suggest anything worrisome like pneumonia. Rhinosinusitis is most often viral and will resolve on its own in 7-10 days. Symptoms that last longer than 2 weeks an antibiotic could be considered. Based on your presentation, and antibiotic was written. The following are my recommendations to help your nasal symptoms and to allow your condition to improve: 1. Drink plenty of fluids while you are ill- stay hydrated 2. Rest - don't overexert yourself - this includes sports and any gym routines. 3. I suggest taking an antihistamine - like Claritin, Zyrtec, or Benedryl 4. If you take OTC cold medication I would recommend Joesphine-Selzer Cold/Cough. 5. Mucinex with a lot of water is ok - if you are having trouble clearing your nasal passages of mucous. However, if you start to cough then discontinue - this can increase coughing due to a watery post nasal drip. 6. Saline Nasal [place]bury is recommended. Since an antibiotic was prescribed you need to complete the full course - this is important so you don't develop any antibiotic resistance to future infections. I advise taking a Probiotic like Florastor since you are on an antibiotic - this will help you re-colonize your body with the good bacteria. Typically, it will take 6 months for you to restore your normal body nasreen after an antibiotic. Don't hesitate to be seen again if you develop: 1. Fever > 100.5 2. Worsening Headache 3. Stiff Neck 4. Worsening Cough or Shortness of breath 5. Visual Changes. The antibiotic should start to work in 4-5 days. You may not notice immediate response. The following are my recommendations to help you with your cough. 1. Take Ibuprofen or Tylenol if you do not have any allergies to these medications. If you take a blood thinner you should not take NSAIDS like Ibuprofen. These medication will help with the inflammation in your respiratory tract which should help the cough. 2. Do not take any decongestants at this time because this will dry out that tract too much. If you have a lot of nasal congestion you can try nasal decongestants, but I would not take them more than 5 days. 3. Use a humidifier or add a cup of water by your bed. Sometimes if our sleeping environment is too dry this can lead to cough 4. Salt Water Gargles 5. Saline nasal spray is helpful. I would be seen again if you develop any of the following. 1. Cough last longer than 3 weeks - and has not worsened 2. You develop a thick productive cough 3. Develop shortness of breath or wheezing 4. Develop achy feel or discomfort in a specific chest location 5. Fever > 100.5 I would go immediately to the Emergency Room if you develop: 1. Chest Pain 2. Severe Shortness of breath 3. Coughing up Blood. Most coughs will resolve on their own without any intervention in 3 weeks. If they last longer we need to evaluate and rule out some other condition like Acid Reflux, or lung pathology. Thank you for using [facility] today - please don't hesitate to contact up or return to see if you have any questions or concerns. [email or web address] Not available 02/20/2022 13:00:42 Reason for Referral None Reported. Problems Name Problem SNOMED Code Status Onset Date Resolution Date Notes Provider Name and Address Organization Details Recorded Time Diabetes mellitus 09182928 Active 2021 KASANDRA Braun [facility] 2 12:12:43 Hypertensive disorder 25174304 Active 2021 KASANDRA Braun [facility] 12:12:56 Hyperlipidemia 95799884 Active 2021 MICHAEL valdes [place] - [facility] 12:13:05 Arthritis 0429243 Active 2021 MICHAEL valdes [place] - [facility] 12:13:19 Problem Notes None recorded. Medical Equipment None Reported. Allergies No known drug allergies Medications Name Sig Start Date Stop Date Status Note LastModified by Organization Details LastModified Time benzonatate 200 mg capsule TAKE 1 CAPSULE BY MOUTH THREE TIMES A DAY active Not Available Not Available No t Available meloxicam 15 mg tablet TAKE 1 TABLET BY MOUTH DAILY active Not Available Not Available No t Available spironolactone 25 mg tablet TAKE 1 TABLET BY MOUTH DAILY active Not Available Not Available No t Available lisinopril 10 mg tablet TAKE 1 TABLET BY MOUTH DAILY active Not Available Not Available No t Available glimepiride 4 mg tablet TAKE 1 TABLET BY MOUTH EVERY DAY active Not Available Not Available No t Available gabapentin 300 mg capsule TAKE 1 CAPSULE BY MOUTH TWICE A DAY active Not Available Not Available No t Available furosemide 20 mg tablet TAKE 1 TABLET BY MOUTH DAILY active Not Available Not Available No t Available metoprolol succinate ER 25 mg tablet,extended release 24 hr TAKE 1 TABLET BY MOUTH TWICE A DAY active Not Available Not Available No t Available loratadine 10 mg tablet TAKE 1 TABLET BY MOUTH EVERY DAY active Not Available Not Available No t Available amoxicillin 875 mg-potassium clavulanate 125 mg tablet TAKE 1 TABLET BY MOUTH EVERY 12 HOURS FOR 7 DAYS active Not Available Not Available No t Available metformin ER 750 mg tablet,extended release 24 hr TAKE 1 TABLET BY MOUTH TWICE A DAY active Not Available Not Available No t Available rosuvastatin 40 mg tablet TAKE 1 TABLET BY MOUTH DAILY active Not Available Not Available No t Available aspirin active Not Available Not Avail able Not Available Vitals Date Recorded Body height Body mass index (BMI) Body weight Oxygen saturation Oxygen saturation in Arterial blood by Pulse oximetry Heart rate Respiratory rate Body temperature Systolic blood pressure Diastolic blood pressure Provider Name and Address Organization Details Last Updated DateTime 160.02 cm 26 kg/m2 90777.0 8 g 100 % 100 % 72 /min 18 /min 98.1 [degF] 111 mm[Hg] 74 mm[Hg] MICHAEL SLAUGHTER [employer] 12:14:49 Social History Question Answer Notes LastModified by [email or web address] Details LastModified Time Tobacco Smoking Status Never Smoker MICHAEL avldes [employer] 02/20/2022 12:13:51 What Is Your Level Of Alcohol Consumption? None Information not available 02/20/2022 Do You Use Any Illicit Or Recreational Drugs? No Information not available 02/20/2022 Have You Recently Traveled Abroad? No Information not available 02/20/2022 Do You Or Have You Ever Used Any Other Forms Of Tobacco Or Nicotine? No [email or web address] Information not available 02/20/2022 Sex: Unknown Functional Status None recorded. Mental Status None recorded. Family History Relationship Description Onset Age of this Age Resolved Age Notes LastModified by Organization Details LastModified Time Father No current problems or disability [email or web address] Not available 02/20 12:13:33 Mother No current problems or disability [email or web address] Not available 02/20 12:13:33 Medical History No medical history recorded. Gynecological HistoryNo gynecological history recorded. Obstetrics History GPAL:G 0 P 0 0 0 0 Past Encounters Encounter ID Performer Location Encounter Start Date Encounter Closed Date Diagnosis/Indication Diagnosis SNOMED-CT Code Diagnosis ICD10 Code Diagnosis Note [id number] KASANDRA DIAZ [address] [place] [address] 02/20/2022 11:36:38 02/20/2022 13:11:56 Acute sinusitis 85143993 J01.90 Cough 45287112 R05.9 Health Concerns Section Related Observation LastModified by Organization Detai ls LastModified Time None Recorded Concern Status LastModified by Organization Details LastModified Time None Recorded Advance Directives Directive None Recorded Payers Encounter Date Sequence Insurance Name Policy Number Policy Turner Covered Member ID Turner Member ID Guarantor Name 02/20/2022 1 [place]IC[place]: [employer] Mihaela Erazo [id number] Mihaela Erazo Notes Date Note Type Note Provider Name and Address Organization Details Recorded Time 2 text/html CoughReported bypatient.source of patient informationInformation obtained from patient; Patient arrived at Urgent Care ambulatory Quality:productive cough;dry Severity:moderate Duration:days; symptoms lasting over 2 weeks Timing:constant Context:non-smoker Modifying Factors:Lying down; at night Associated Symptoms:no fever; no chills; no chest pain; no heartburn; no nausea; no vomiting; no edema; no wheezing;post nasal dripNotes:Was sick since [place]. Left this this cough that will not go away. Keeping her from sleeping. contacted PCP who won't call in a prescription for her for cough medication. Denies fever or SOB. Does have significant amount of head congestion and drainage. KASANDRA DIAZ [facility] [place], [address], [place] - [facility] 02/20/2022 14:10:51 OBGyn Episode No OBEpisode recorded.
== END 2024-05-21 10:35 | disposition home or self-care (01) ==
PROVIDERS: PCP Internal Medicine; Visit Provider Internal Medicine
DX: I50.20 Unspecified systolic (congestive) heart failure (principal); I10 Essential (primary) hypertension; E11.42 Type 2 diabetes mellitus with diabetic polyneuropathy; M16.11 Unilateral primary osteoarthritis, right hip; Z00.00 Encounter for general adult medical examination without abnormal findings

== ENCOUNTER → 2024-05-21 09:19 | Outpatient (BNVA) | payer MEDICARE, MEDICAID, SELFPAY | PROVIDERS: PCP Internal Medicine; Visit Provider Internal Medicine | DX: I11.0 Hypertensive heart disease with heart failure (principal); I50.20 Unspecified systolic (congestive) heart failure; E11.42 Type 2 diabetes mellitus with diabetic polyneuropathy; M16.11 Unilateral primary osteoarthritis, right hip | CPT/HCPCS: 83036; 99212 ==

== ENCOUNTER → 2024-06-01 08:45 | Outpatient (BNV) | payer MEDICARE, MEDICAID, SELFPAY | PROVIDERS: Visit Provider Internal Medicine | DX: Z12.31 Encounter for screening mammogram for malignant neoplasm of breast (principal) | CPT/HCPCS: 77063; 77067 ==

== ENCOUNTER 2024-06-01 08:59 | Outpatient (REF) | payer MEDICARE, MEDICAID, SELFPAY ==
--- OUTSIDE RECORDS SUMMARY | 2024-06-01 09:33 | XMS_ITS | Data Portability ---
Author Organization KASANDRA Madison s [address] Address [address] [place] [address] Assessment No assessment recorded. Plan of Treatment Reminders Order Date Submit Date Provider Last Modified By Organization Details Last Modified Time Details Appointments None recorded. Lab None recorded. Referral None recorded. Procedures None recorded. Surgeries None recorded. Imaging None recorded. Medication Orders amoxicillin 875 mg-potassiu m clavulanate 125 mg tablet 2021 022 [facility] #[id number], [address] [place], [address], 2 12:59:07 benzonatate 200 mg capsule 2021 022 [facility] #[id number], [address] [place], [address], 2 12:59:06 loratadine 10 mg tablet 2021 022 [facility][id number], [address] [place], [address], 2 12:59:06 Patient TargetsNo targets recorded. Patient Instructions Encounter Date Encounter Id Patient Instructions Last Modified By Organization Details Last Modified Time 02/20/2022 [id number] cough: care instructions [email or web address] Not available 02/20/2022 12:59:03 You are being [...] take OTC cold medication I would recommend Josephine-Selzer Cold/Cough. 5. Mucinex with a lot of water is ok - if you are having trouble clearing your nasal passages of mucous. However, if you start to cough then discontinue - this can increase coughing due to a watery post nasal drip. 6. Saline Nasal [place] is recommended. Since an antibiotic was prescribed [...] or lung pathology. Thank you for using [employer] today - please don't hesitate to contact up or return to see if you have any questions or concerns. [email or web address] Not available 02/20/2022 13:00:42 Reason for Referral None Reported. Problems Name Problem SNOMED Code Status Onset Date Resolution Date Notes Provider Name and Address Organization Details Recorded Time Diabetes mellitus 77780742 Active 2021 KASANDRA Braun [facility] 2 12:12:43 Hypertensive disorder 34220779 Active 2021 KASANDRA Braun [facility] 12:12:56 Hyperlipidemia 26235637 Active 2021 MICHAEL valdes [place] - [facility] 2 12:13:05 Arthritis 9297908 Active 2021 [facility]des [facility] - [facility] [...] Last Updated DateTime 160.02 cm 26 kg/m2 87166.0 8 g 100 % 100 % 72 /min 18 /min 98.1 [degF] 111 mm[Hg] 74 mm[Hg] MICHAEL SLAUGHTER [employer] 12:14:49 Social History Question Answer Notes LastModified by [employer] ion Details LastModified Time Tobacco Smoking Status Never Smoker MICHAEL valdes [employer] 02/20/2022 12:13:51 What Is Your Level Of Alcohol Consumption? None [email or web address] Information not available 02/20/2022 Do You Use Any Illicit Or Recreational Drugs? No [email or web address] Information not available 02/20/2022 Have You Recently Traveled Abroad? No [email or web address] Information not available 02/20/2022 Do You Or Have You Ever Used Any Other Forms Of Tobacco Or Nicotine? No [email or web address] Information not available 02/20/2022 Sex: Unknown Functional Status None recorded. Mental Status None recorded. Family History Relationship Description Onset Age of this Age Resolved Age Notes LastModified by Organization Details LastModified Time Father No current problems or disability Not available 02/20 12:13:33 Mother No current problems or disability [email or web address] Not available 02/20 12:13:33 Medical History No medical history recorded. Gynecological HistoryNo gynecological history recorded. Obstetrics History GPAL:G 0 P 0 0 0 0 Past Encounters Encounter ID Performer Location Encounter Start Date Encounter Closed Date Diagnosis/Indication Diagnosis SNOMED-CT Code Diagnosis ICD10 Code Diagnosis Note [id number] KASANDRA DIAZ [address] [place] [address] 02/20/2022 11:36:38 02/20/2022 13:11:56 Acute sinusitis 25463577 J01.90 Cough 25674926 R05.9 Health Concerns Section Related Observation LastModified by Organization Detai ls LastModified Time None Recorded Concern Status LastModified by Organization Details LastModified Time None Recorded Advance Directives Directive None Recorded Payers Encounter Date Sequence Insurance Name Policy Number Policy Turner Covered Member ID Turner Member ID Guarantor Name 02/20/2022 1 [place] [employer] Mihaela Erazo [id number] Mihaela Erazo Notes Date Note Type [...] of head congestion and drainage. KASANDRA DIAZ [facility] [place], [address], [place] - [facility] 02/20/2022 14:10:51 OBGyn Episode No OBEpisode recorded.
--- OUTSIDE RECORDS SUMMARY | 2024-06-01 09:33 | XMS_ITS ---
Author Name CRISP Organization Unknown Care Team Organization Name Specialty Phone Email Start Date End Da te [facility]
== END 2024-06-01 09:00 | disposition home or self-care (01) ==
LOC: HO.MAMMO 08:59
PROVIDERS: Visit Provider Internal Medicine
DX: Z12.31 Encounter for screening mammogram for malignant neoplasm of breast (principal)
CPT/HCPCS: 77063; 77067

== ENCOUNTER → 2024-06-08 23:59 | Outpatient (BNV) | payer MEDICARE, MEDICAID, SELFPAY ==
--- NOTE | 2024-06-09 12:37 | MHC.OFFVIS ---
Intake Visit Reasons: Remote HF monitoring- [employer] Allergies No Known Allergies Allergy (Verified 05/21/24 09:51) [facility] Medical History Encounter for colorectal cancer screening using Cologuard test (~11/15/21) Ischemic cardiomyopathy Presence of automatic (implantable) cardiac defibrillator Unspecified systolic (congestive) heart failure Borderline hypercholesterolemia Atherosclerotic heart disease of [place] coronary artery without angina pectoris Arthritis of right hip Type 2 diabetes mellitus with diabetic polyneuropathy Surgical History History of implantable cardioverter-defibrillator (ICD) insertion History of heart artery stent History of placement of internal cardiac defibrillator History of cardiac defibrillator placement Family History Father Medical history unknown Mother Medical history unknown Social History Housing: Apartment Alcohol intake: never Patient Tobacco Use Status: Never used Tobacco Tobacco use type: Cigarette e-Cigarette/Vaping Use: Never Used Second Hand Smoke Exposure: No Advance Directives Date on File: 10/24/22 service: No Current occupational status: retired Cognitive needs: Yes (cane) Hearing needs: No Vision needs: Yes (glasses) Office Procedures Cardiac Device Check Cardiac Device Check Details: Date of service- 06/08/2024; based on impedance data and physiological variables, there is no evidence of worsening congestive heart failure. [id number] Cardiac Device Interrogation, cardio physiologic monitor Procedure code (CPT) selection complete Assessment & Plan Assessment & Plan (1) Presence of automatic (implantable) cardiac defibrillator: Code(s): Z95.810 - Presence of automatic (implantable) cardiac defibrillator Category: Medical (2) Ischemic cardiomyopathy: Code(s): I25.5 - Ischemic cardiomyopathy Category: Medical Plan x Coding Level of Care Code Procedure Only Diagnoses Presence of automatic (implantable) cardiac defibrillator Z95.810 Ischemic cardiomyopathy I25.5 CPT Codes Cardiac Device Check - Cardiac Device 15: [id number] Cardiac Device Interrogation, cardio physiologic monitor ([id number])
== END ==
PROVIDERS: Visit Provider Internal Medicine
DX: I25.5 Ischemic cardiomyopathy (principal); Z95.810 Presence of automatic (implantable) cardiac defibrillator
CPT/HCPCS: 93297

== ENCOUNTER 2024-07-09 08:49 | Outpatient (AMB) | payer MEDICARE, MEDICAID, SELFPAY ==
--- OUTSIDE RECORDS SUMMARY | 2024-07-09 09:20 | XMS_ITS | Data Portability ---
Author Organization KASANDRA Madison s [address] Address [address] [place] [address] Assessment No assessment recorded. Plan of Treatment Reminders Order Date Submit Date Provider Last Modified By Organization Details Last Modified Time Details Appointments None recorded. Lab None recorded. Referral None recorded. Procedures None recorded. Surgeries None recorded. Imaging None recorded. Medication Orders amoxicillin 875 mg-potassiu m clavulanate 125 mg tablet 2021 022 [facility] #[id number], [address] [place], [address], 2 12:59:07 benzonatate 200 mg capsule 2021 022 [facility] #0373, [address] [place], [address], 2 12:59:06 loratadine 10 mg tablet 2021 022 [facility] #0373, [address] [place], [address], 2 12:59:06 Patient TargetsNo targets recorded. Patient Instructions Encounter Date Encounter Id Patient Instructions Last Modified By Organization Details Last Modified Time 02/20/2022 [id number] cough: care instructions [email or web address] Not available 02/20/2022 12:59:03 You are being [...] watery post nasal drip. 6. Saline Nasal [place] is recommended. Since an antibiotic was prescribed [...] or lung pathology. Thank you for using [employer] today - please don't hesitate to contact up or return to see if you have any questions or concerns. [email or web address] Not available 02/20/2022 13:00:42 Reason for Referral None Reported. Problems Name Problem SNOMED Code Status Onset Date Resolution Date Notes Provider Name and Address Organization Details Recorded Time Diabetes mellitus 74249321 Active 2021 KASANDRA Braun [facility] 2 12:12:43 Hypertensive disorder 60791635 Active 2021 KASANDRA Braun [facility] 2 12:12:56 Hyperlipidemia 69858614 Active 2021 MICHAEL valdes PA - [facility] 2 12:13:05 Arthritis 5297156 Active 2021 MICHAEL valdes [facility] - [facility] [...] Last Updated DateTime 160.02 cm 26 kg/m2 99976.0 8 g 100 % 100 % 72 /min 18 /min 98.1 [degF] 111 mm[Hg] 74 mm[Hg] MICHAEL SLAUGHTER [employer] 12:14:49 Social History Question Answer Notes LastModified by [employer] ion Details LastModified Time Tobacco Smoking Status Never Smoker MICHAEL valdes [employer] 02/20/2022 12:13:51 What Is Your Level Of Alcohol Consumption? None Information not available 02/20/2022 Do You Use Any Illicit Or Recreational Drugs? No [email or web address] Information not available 02/20/2022 Have You Recently Traveled Abroad? No [email or web address] Information not available 02/20/2022 Do You Or Have You Ever Used Any Other Forms Of Tobacco Or Nicotine? No [email or web address] Information not available 02/20/2022 Sex: Unknown Functional Status None recorded. Mental Status None recorded. Family History Relationship Description Onset Age of this Age Resolved Age Notes LastModified by Organization Details LastModified Time Father No current problems or disability [email or web address] Not available 02/20 12:13:33 Mother No current problems or disability [email or web address] Not available 02/20 12:13:33 Medical History No medical history recorded. Gynecological HistoryNo gynecological history recorded. Obstetrics History GPAL:G 0 P 0 0 0 0 Past Encounters Encounter ID Performer Location Encounter Start Date Encounter Closed Date Diagnosis/Indication Diagnosis SNOMED-CT Code Diagnosis ICD10 Code Diagnosis Note [id number] KASANDRA DIAZ [address] [place] [address] 02/20/2022 11:36:38 02/20/2022 13:11:56 Acute sinusitis 30698461 J01.90 Cough 80967185 R05.9 Health Concerns Section Related Observation LastModified by Organization Detai ls LastModified Time None Recorded Concern Status LastModified by Organization Details LastModified Time None Recorded Advance Directives Directive None Recorded Payers Encounter Date Sequence Insurance Name Policy Number Policy Turner Covered Member ID Turner Member ID Guarantor Name 02/20/2022 1 [place] [employer] Mihaela Erazo [id number] Mihaela Erazo Notes Date Note Type [...] of head congestion and drainage. KASANDRA DIAZ [facility] [place], [address], [place] - [facility] 02/20/2022 14:10:51 OBGyn Episode No OBEpisode recorded.
--- NOTE | 2024-07-09 09:31 | A.OFFPC_ITS ---
Vital Signs 07/09/24 09:32 Height 5 ft 4 in Weight 128 lb 8 oz BMI 22.1 BP 100/58 L Blood Pressure Location Lt brachial Position Sitting Pulse 67 Pulse Source Pulse Oximeter Temp 97.1 F Temp Source Temporal Artery Scan Pulse Oximetry (%) 97 Oxygen Delivery Method Room Air Intake Visit Reasons: Annual Exam Intake Note: Patient is here today for a physical. Transformer Tester Required: No Law Tutor: Not Required per policy Accompanied by: Self / Same As Patient Allergies No Known Allergies Allergy (Verified 07/09/24 10:14) Medication List - Last Reconciled 07/09/24 by Carlos Garg MD aspirin (Adult Low Dose Aspirin) 81 mg PO DAILY blood sugar diagnostic ([employer] Ultra Test strips) As directed blood-glucose meter ([employer] Ultra2 Meter) As directed cane Need for quad cane cyclobenzaprine 10 mg PO BEDTIME furosemide 20 mg PO DAILY gabapentin (Neurontin) 300 mg PO BID 90 days lancets ([employer] Delica Lancets) USE TO TEST DAILY lisinopril 10 mg PO DAILY metformin ER 750 mg PO BID metoprolol succinate ER 25 mg PO BID rosuvastatin 40 mg PO DAILY spironolactone 25 mg PO DAILY Tobacco use date assessed: 07/09/24 Fall risk assessment: No Falls in past year Last assessed Fall Risk: 07/09/24 Dental Screening Dental Screen Date: [facility] HPI Details 74-year-old female presents to the [facility] requesting an annual physical. [facility] Medical History Encounter for colorectal cancer screening using Cologuard test (~11/15/21) Ischemic cardiomyopathy Presence of automatic (implantable) cardiac defibrillator Unspecified systolic (congestive) heart failure Borderline hypercholesterolemia Atherosclerotic heart disease of [place] coronary artery without angina pectoris Arthritis of right hip Type 2 diabetes mellitus with diabetic polyneuropathy Surgical History History of implantable cardioverter-defibrillator (ICD) insertion History of heart artery stent History of placement of internal cardiac defibrillator History of cardiac defibrillator placement Family History Father Medical history unknown Mother Medical history unknown Social History Housing: Apartment Alcohol intake: never Patient Tobacco Use Status: Never used Tobacco Tobacco use type: Cigarette e-Cigarette/Vaping Use: Never Used Second Hand Smoke Exposure: No Advance Directives Date on File: 10/24/22 service: No Current occupational status: retired Cognitive needs: Yes (cane) Hearing needs: No Vision needs: Yes (glasses) Questionnaire PHQ-9 Over the last 2 weeks, how often have you been bothered by any of the following problems? 1. Little interest or pleasure in doing things: not at all 2. Feeling down, depressed, or hopeless: not at all 3. Trouble falling or staying asleep, or sleeping too much: not at all 4. Feeling tired or having little energy: not at all 5. Poor appetite or overeating: not at all 6. Feeling bad about yourself - or that you are a failure or have let yourself or your family down: not at all 7. Trouble concentrating on things, such as reading the newspaper or watching television: not at all 8. Moving or speaking so slowly that other people could have noticed. Or the opposite - being so fidgety or restless that you have been moving around a lot more than usual: not at all 9. Thoughts that you would be better off or of hurting yourself in some way: not at all Total score: 0 Depression Screening Interpretation: Negative Depression Screening Done: Yes Source: Developed by Drs. Alonzo Hays, Cordelia Irby, Arthur Aden and colleagues, with an educational maciej from [employer]. Thrive Questionnaire Date Thrive assessed: 05/21/24 I am a: Patient What is your living situation today?: I have a steady place to live Within the past 12 months, did the food you bought not last and you didn't have the money to get more?: I choose not to answer this question Within the past 12 months, did you worry whether your food would run out before you got money to buy more?: I choose not to answer this question Do you have trouble paying for medicines?: No Do you have trouble getting transportation to medical appointments?: No Do you have trouble paying your heating and electricity bill?: No Do you have trouble taking care of your child, family member or friend?: No Do you have trouble with day-to-day activities such as bathing, preparing meals, shopping, managing finances, etc.?: No Are you currently unemployed and looking for a job?: Yes Are you interested in more education?: No Please select the resources that you would like help with: None Currently or been in a relationship where the following occur: I choose not to answer THRIVE Score: 0 AUDIT C Alcohol Use Questionnaire (AUDIT-C) 1. How often do you have a drink containing alcohol?: Never Total Score: 0 DIANA-7 AMB Questionnaire DIANA-7 Date DIANA - 7 assessed: 07/09/24 Feeling nervous, anxious, or on edge: 0 = Not at all Not being able to stop or control worryin = Several days Worrying too much about different things: 1 = Several days Trouble relaxin = Not at all Being so restless that it is hard to sit still: 0 = Not at all Becoming easily annoyed or irritable: 0 = Not at all Feeling afraid as if something awful might happen: 0 = Not at all Total DIANA-7 score (0-4 normal; 5-9 mild; 10-14 moderate; 15-21 severe): 2 Source: Developed by Drs. Alonzo Hays, Cordelia Irby, Arthur Aden and colleagues, with an educational maciej from [employer]. Physical exam (Primary Care) Vital Signs: Last Vital Signs Temp 97.1 F 07/09/24 09:32 Pulse 67 07/09/24 09:32 BP 100/58 L 07/09/24 09:32 Pulse Ox 97 07/09/24 09:32 Oxygen Delivery Method Room Air 07/09/24 09:32 Care Plan Goal for BP management: Blood pressure is in range. BMI result Body Mass Index 22.1 Tobacco/Smoking Status: Tobacco use Status Tobacco use date assessed 07/09/24 07/09/24 09:38 Patient Tobacco Use Status Never used Tobacco 07/09/24 09:38 Tobacco use type Cigarette 07/09/24 09:38 e-Cigarette/Vaping Use Never Used 07/09/24 09:38 PHQ-9: PHQ-9 Score PHQ-9: Total score 0 07/09/24 09:38 Depression Screening Interpretation: Negative Thrive Assessment: Date of Thrive Assessment Date Thrive assessed 05/21/24 07/09/24 09:38 Currently or been in a relationship where the following occur: I choose not to answer Advance Care Planning discussion: Exists, not on file Date of discussion: 07/09/24 Who was present: Patient Forms completed: Health Care Proxy Time spent: 1-15 minutes, not on file Actual minutes spent: 5 Const General: cooperative and healthy appearing Nutritional Appearance: well nourished Orientation/consciousness: patient oriented x3 Limitations: no limitations HENMT Head: Yes normal to inspection Eyes General: appearance normal, both eyes and all related structures Neck Neck: Yes normal visual inspection Chest Chest palpation & inspection: normal palpation of entire chest wall Resp Effort & Inspection: normal respiratory effort Neuro General: patient oriented x3 Coding Level of Care Code Complex EM visit Add On G2211 Diagnoses Type 2 diabetes mellitus with diabetic polyneuropathy, without long-term current use of insulin E11.42 Diabetes mellitus jail insulin use: without intermediate card tender use Encounter for annual physical exam Z00.00 Additional Codes Vital Signs *Quality* - Advance Care Planning discussion: Exists, not on file ([id number]) Vital Signs *Quality* - Time spent: 1-15 minutes, not on file ([id number]) Assessment & Plan Assessment & Plan (1) Type 2 diabetes mellitus with diabetic polyneuropathy: Code(s): E11.42 - Type 2 diabetes mellitus with diabetic polyneuropathy Category: Medical Qualifiers: Diabetes mellitus intermediate card tender insulin use: without jail use Qualified Code(s): E11.42 - Type 2 diabetes mellitus with diabetic polyneuropathy Plan: Blood work has been ordered. (2) Encounter for annual physical exam: Code(s): Z00.00 - Encounter for general adult medical examination without abnormal findings Category: Medical Plan: Will call with results of the blood work. Orders: Orders Hemoglobin A1c Today E11.42 - Type 2 diabetes mellitus with diabetic polyneuropathy Liver Panel Today E11.42 - Type 2 diabetes mellitus with diabetic polyneuropathy Complete Blood Count no Diff Today E11.42 - Type 2 diabetes mellitus with diabetic polyneuropathy Thyroid Stimulating Hormone Today E11.42 - Type 2 diabetes mellitus with diabetic polyneuropathy Basic Metabolic Panel Today E11.42 - Type 2 diabetes mellitus with diabetic polyneuropathy
[2024-07-09 09:32] VITALS: BP 100/58; PULSE 67; TEMP 36.2; O2SAT 97; BMI 22.1
== END 2024-07-09 12:21 | disposition home or self-care (01) ==
LOC: HO.HMCH 08:50
PROVIDERS: PCP Internal Medicine; Visit Provider Internal Medicine
DX: Z00.00 Encounter for general adult medical examination without abnormal findings (principal); E11.42 Type 2 diabetes mellitus with diabetic polyneuropathy

== ENCOUNTER → 2024-07-09 08:49 | Outpatient (BNVA) | payer MEDICARE, MEDICAID, SELFPAY | PROVIDERS: PCP Internal Medicine; Visit Provider Internal Medicine ==

== ENCOUNTER 2024-07-09 10:33 | Outpatient (REF) | payer MEDICARE, MEDICAID, SELFPAY ==
[2024-07-09 13:13] LABS: Estimated Average Glucose 177 mg/dL; Hematocrit 34.8 % (37.0-47.0); Hemoglobin 11.2 g/dl (12.0-16.0); Hemoglobin A1c % 7.8 % (<6.0); Mean Corpuscular HGB Conc 32.2 g/dl (31.0-35.0); Mean Corpuscular Hemoglobin 29.7 pg (27.0-33.0); Mean Corpuscular Volume 92.3 fL (80.0-98.0); Mean Platelet Volume 8.9 fL (9.4-12.3); Platelet Count 271 X10*3/uL (160-400); Red Blood Count 3.77 X10*6/uL (4.20-5.50); Red Cell Distribution Width 12.7 % (11.0-16.0)
[2024-07-09 13:29] LABS: Alanine Aminotransferase 40 U/L (0-31); Albumin Level 4.5 g/dL (3.5-5.0); Alkaline Phosphatase 90 U/L (39-117); Anion Gap 11 (12-20); Aspartate Amino Transferase 36 U/L (5-31); Bilirubin Direct 0.1 mg/dL (0.0-0.5); Bilirubin Total 0.3 mg/dL (0.0-1.0); Blood Urea Nitrogen 30 mg/dL (9-16); Calcium 10.6 mg/dL (8.4-10.2); Carbon Dioxide 29 mmol/L (22-29); Chloride 101 mmol/L (96-108); Estimated Glomerular Filt Rate 44; Glucose Random 261 mg/dL (60-115); Potassium 4.7 mmol/L (3.3-5.1); Sodium 136 mmol/L (135-145); Total Protein 7.9 g/dL (6.5-8.0)
[2024-07-09 13:42] LABS: Thyroid Stimulating Hormone 1.22 uIU/mL (0.32-4.0)
== END 2024-07-09 10:34 | disposition home or self-care (01) ==
LOC: HO.10HDL 10:33
PROVIDERS: Visit Provider Internal Medicine
DX: Z00.00 Encounter for general adult medical examination without abnormal findings (principal); E11.42 Type 2 diabetes mellitus with diabetic polyneuropathy
CPT/HCPCS: 36415; 80048; 80076; 83036; 84443; 85027; 99397

== ENCOUNTER 2024-07-13 11:19 | Outpatient (AMB) | payer MEDICARE, MEDICAID, SELFPAY ==
--- NOTE | 2024-07-13 11:41 | MHC.OFFVIS ---
Vital Signs 07/13/24 12:00 Height 5 ft 4 in Weight 128 lb BMI 22.0 Intake Visit Reasons: OV - Right Hip OA - High Cardiac Risk Intake Note: Mihaela is a 74 year old female who presents today for a follow up of her Right Hip OA. Hx of DM & CHF. In 2021 we discussed moving forward with ARACELI but she was deemed high cardiac risk. Patient is open to discussing injections. Allergies No Known Allergies Allergy (Verified 07/13/24 11:42) HPI HPI OV - Right Hip OA - High Cardiac Risk: Details: This is a 74-year-old woman who is high cardiac risk for surgery. She has severe right hip arthritis but is not a surgical candidate. She knows this. She does not want surgery. She has had hip injections in the remote past which were helpful and she would like another injection. She walks with a cane and a severe gait disturbance. She is diabetic. [facility] Medical History Encounter for colorectal cancer screening using Cologuard test (~11/15/21) Ischemic cardiomyopathy Presence of automatic (implantable) cardiac defibrillator Unspecified systolic (congestive) heart failure Borderline hypercholesterolemia Atherosclerotic heart disease of [place] coronary artery without angina pectoris Arthritis of right hip Type 2 diabetes mellitus with diabetic polyneuropathy Surgical History History of implantable cardioverter-defibrillator (ICD) insertion History of heart artery stent History of placement of internal cardiac defibrillator History of cardiac defibrillator placement Family History Father Medical history unknown Mother Medical history unknown Social History Housing: Apartment Alcohol intake: never Patient Tobacco Use Status: Never used Tobacco Tobacco use type: Cigarette e-Cigarette/Vaping Use: Never Used Second Hand Smoke Exposure: No Advance Directives Date on File: 10/24/22 service: No Current occupational status: retired Cognitive needs: Yes (cane) Hearing needs: No Vision needs: Yes (glasses) Physical Exam Vital Signs: BMI result Body Mass Index 22.0 Const General: no acute distress and alert Orientation/consciousness: patient oriented x3 Neuro General: patient oriented x3 Extrem Other: Right lower extremity: valgus right knee which is partially due to her internal rotation of the right hip. She has no motion at the hip and a severe gait antalgia Assessment & Plan Assessment & Plan (1) Arthritis of right hip: Code(s): M16.11 - Unilateral primary osteoarthritis, right hip Category: Medical Plan: 74-year-old woman with severe osteoarthritis of the right hip and severe cardiac disease. She is not a surgical candidate and she does not want surgery. I ordered a right hip injection and she will follow up accordingly. Orders: Referrals Pain Management Referral M16.11 - Unilateral primary osteoarthritis, right hip Coding Level of Care Code Est Pt Level 3 (52424) Diagnoses Arthritis of right hip M16.11
[2024-07-13 12:00] VITALS: BMI 22.0
--- OUTSIDE RECORDS SUMMARY | 2024-07-13 13:41 | XMS_ITS | Data Portability ---
Author Organization KASANDRA Madison s [address] Address [address] [place] [address] Assessment No assessment recorded. Plan of Treatment Reminders Order Date Submit Date Provider Last Modified By Organization Details Last Modified Time Details Appointments None recorded. Lab None recorded. Referral None recorded. Procedures None recorded. Surgeries None recorded. Imaging None recorded. Medication Orders amoxicillin 875 mg-potassiu m clavulanate 125 mg tablet 2021 022 [facility]acy #[id number], [address] [place], [address], 2 12:59:07 benzonatate 200 mg capsule 2021 022 [facility] #[id number], [address] [place], [address], 2 12:59:06 loratadine 10 mg tablet 2021 022 [facility] #[id number], [address] [place], [address], 2 12:59:06 Patient TargetsNo targets recorded. Patient Instructions Encounter Date Encounter Id Patient Instructions Last Modified By Organization Details Last Modified Time 02/20/2022 [id number] cough: care instructions Not available 02/20/2022 12:59:03 [...] watery post nasal drip. 6. Saline Nasal [place] is recommended. Since an antibiotic was prescribed [...] or lung pathology. Thank you for using [facility] today - please don't hesitate to contact up or return to see if you have any questions or concerns. [email or web address] Not available 02/20/2022 13:00:42 Reason for Referral None Reported. Problems Name Problem SNOMED Code Status Onset Date Resolution Date Notes Provider Name and Address Organization Details Recorded Time Diabetes mellitus 45258989 Active 2021 KASANDRA Braun [facility] 2 12:12:43 Hypertensive disorder 68141367 Active 2021 KASANDRA Braun [facility] 2 12:12:56 Hyperlipidemia 72998364 Active 2021 MICHAEL valdes [place] - [facility] 2 12:13:05 Arthritis 7413972 Active 2021 [facility]des [facility] - [facility] [...] Last Updated DateTime 160.02 cm 26 kg/m2 67825.0 8 g 100 % 100 % 72 /min 18 /min 98.1 [degF] 111 mm[Hg] 74 mm[Hg] MICHAEL SLAUGHTER [facility] 12:14:49 Social History Question Answer Notes LastModified by [email or web address] ion Details LastModified Time Tobacco Smoking Status Never Smoker MICHAEL valdes [employer] 02/20/2022 12:13:51 What Is Your Level Of Alcohol Consumption? None Information not available 02/20/2022 Do You Use Any Illicit Or Recreational Drugs? No [email or web address] Information not available 02/20/2022 Have You Recently Traveled Abroad? No [email or web address] Information not available 02/20/2022 Do You Or Have You Ever Used Any Other Forms Of Tobacco Or Nicotine? No [email or web address] Information not available 02/20/2022 Sex: Unknown Functional Status None recorded. Mental Status None recorded. Family History Relationship Description Onset Age of this Age Resolved Age Notes LastModified by Organization Details LastModified Time Father No current problems or disability Not available 02/20 12:13:33 Mother No current problems or disability [email or web address] Not available 02/20 12:13:33 Medical History No medical history recorded. Gynecological HistoryNo gynecological history recorded. Obstetrics History GPAL:G 0 P 0 0 0 0 Past Encounters Encounter ID Performer Location Encounter Start Date Encounter Closed Date Diagnosis/Indication Diagnosis SNOMED-CT Code Diagnosis ICD10 Code Diagnosis Note [id number] KASANDRA DIAZ [address] [place] [address] 02/20/2022 11:36:38 02/20/2022 13:11:56 Acute sinusitis 48818411 J01.90 Cough 59820674 R05.9 Health Concerns Section Related Observation LastModified by Organization Detai ls LastModified Time None Recorded Concern Status LastModified by Organization Details LastModified Time None Recorded Advance Directives Directive None Recorded Payers Encounter Date Sequence Insurance Name Policy Number Policy Turner Covered Member ID Turner Member ID Guarantor Name 02/20/2022 1 [place]IC[place]: [employer] Mihaela Erazo [id number] Mihaela Erazo Notes Date Note Type [...] of head congestion and drainage. KASANDRA DIAZ [facility] [place], [address], [place] - [facility] 02/20/2022 14:10:51 OBGyn Episode No OBEpisode recorded.
== END 2024-07-13 12:08 | disposition home or self-care (01) ==
LOC: HO.HOS 11:20
PROVIDERS: PCP Internal Medicine; Visit Provider Orthopaedic Surgery
DX: M16.11 Unilateral primary osteoarthritis, right hip (principal)
CPT/HCPCS: 99213

== ENCOUNTER → 2024-07-13 11:19 | Outpatient (BNVA) | payer MEDICARE, MEDICAID, SELFPAY | PROVIDERS: PCP Internal Medicine; Visit Provider Orthopaedic Surgery | DX: M16.11 Unilateral primary osteoarthritis, right hip (principal) | CPT/HCPCS: 99212 ==

== ENCOUNTER → 2024-07-17 23:59 | Outpatient (BNV) | payer MEDICARE, MEDICAID, SELFPAY ==
--- NOTE | 2024-07-19 08:37 | A.OFFVIS_ITS ---
Intake Visit Reasons: Remote HF monitoring- [employer] Allergies No Known Allergies Allergy (Verified 07/13/24 11:42) [facility] Medical History Encounter for colorectal cancer screening using Cologuard test (~11/15/21) Ischemic cardiomyopathy Presence of automatic (implantable) cardiac defibrillator Unspecified systolic (congestive) heart failure Borderline hypercholesterolemia Atherosclerotic heart disease of [place] coronary artery without angina pectoris Arthritis of right hip Type 2 diabetes mellitus with diabetic polyneuropathy Surgical History History of implantable cardioverter-defibrillator (ICD) insertion History of heart artery stent History of placement of internal cardiac defibrillator History of cardiac defibrillator placement Family History Father Medical history unknown Mother Medical history unknown Social History Housing: Apartment Alcohol intake: never Patient Tobacco Use Status: Never used Tobacco Tobacco use type: Cigarette e-Cigarette/Vaping Use: Never Used Second Hand Smoke Exposure: No Advance Directives Date on File: 10/24/22 service: No Current occupational status: retired Cognitive needs: Yes (cane) Hearing needs: No Vision needs: Yes (glasses) Office Procedures Cardiac Device Check Cardiac Device Check Details: Date of service 07/17/2024; Battery life 77%; normal lead parameters; no treated VT/VF; normal ICD function. [id number] Cardiac Interrogation, implant defibrillator w/interim Procedure code (CPT) selection complete Assessment & Plan Assessment & Plan (1) Presence of automatic (implantable) cardiac defibrillator: Code(s): Z95.810 - Presence of automatic (implantable) cardiac defibrillator Category: Medical (2) Ischemic cardiomyopathy: Code(s): I25.5 - Ischemic cardiomyopathy Category: Medical Plan x Coding Level of Care Code Procedure Only Diagnoses Presence of automatic (implantable) cardiac defibrillator Z95.810 Ischemic cardiomyopathy I25.5 CPT Codes Cardiac Device Check - Cardiac Device 13: [id number] Cardiac Interrogation, implant defibrillator w/interim ([id number])
== END ==
PROVIDERS: PCP Internal Medicine; Visit Provider Internal Medicine
DX: I25.5 Ischemic cardiomyopathy (principal); Z95.810 Presence of automatic (implantable) cardiac defibrillator
CPT/HCPCS: 93295

== ENCOUNTER → 2024-08-25 23:59 | Outpatient (BNV) | payer MEDICARE, MEDICAID, SELFPAY ==
--- NOTE | 2024-08-26 20:48 | A.OFFVIS_ITS ---
Intake Visit Reasons: Remote ICD check- [employer] Allergies No Known Allergies Allergy (Verified 07/13/24 11:42) [facility] Medical History Encounter for colorectal cancer screening using Cologuard test (~11/15/21) Ischemic cardiomyopathy Presence of automatic (implantable) cardiac defibrillator Unspecified systolic (congestive) heart failure Borderline hypercholesterolemia Atherosclerotic heart disease of [place] coronary artery without angina pectoris Arthritis of right hip Type 2 diabetes mellitus with diabetic polyneuropathy Surgical History History of implantable cardioverter-defibrillator (ICD) insertion History of heart artery stent History of placement of internal cardiac defibrillator History of cardiac defibrillator placement Family History Father Medical history unknown Mother Medical history unknown Social History Housing: Apartment Alcohol intake: never Patient Tobacco Use Status: Never used Tobacco Tobacco use type: Cigarette e-Cigarette/Vaping Use: Never Used Second Hand Smoke Exposure: No Advance Directives Date on File: 10/24/22 service: No Current occupational status: retired Cognitive needs: Yes (cane) Hearing needs: No Vision needs: Yes (glasses) Office Procedures Cardiac Device Check Cardiac Device Check Details: Date of service- 08/25/2024; based on impedance data and physiological variables, there is no evidence of worsening congestive heart failure. [id number] Cardiac Device Interrogation, cardio physiologic monitor Procedure code (CPT) selection complete Assessment & Plan Assessment & Plan (1) Presence of automatic (implantable) cardiac defibrillator: Code(s): Z95.810 - Presence of automatic (implantable) cardiac defibrillator Category: Medical (2) Ischemic cardiomyopathy: Code(s): I25.5 - Ischemic cardiomyopathy Category: Medical Plan x Coding Level of Care Code Procedure Only Diagnoses Presence of automatic (implantable) cardiac defibrillator Z95.810 Ischemic cardiomyopathy I25.5 CPT Codes Cardiac Device Check - Cardiac Device 15: [id number] Cardiac Device Interrogation, cardio physiologic monitor ([id number])
== END ==
PROVIDERS: PCP Internal Medicine; Visit Provider Internal Medicine
DX: I25.5 Ischemic cardiomyopathy (principal); Z95.810 Presence of automatic (implantable) cardiac defibrillator
CPT/HCPCS: 93297

== ENCOUNTER 2024-09-03 13:31 | Outpatient (AMB) | payer MEDICARE, MEDICAID, SELFPAY ==
--- NOTE | 2024-09-03 13:40 | A.OFFVIS_ITS ---
Vital Signs 09/03/24 13:44 Weight 121 lb Blood Pressure Location Lt brachial Position Sitting Respiration 16 Pulse 71 Pulse Source Pulse Oximeter Pulse Oximetry (%) 100 Oxygen Delivery Method Room Air Intake Visit Reasons: Unilateral primary osteoarthritis, Right Hip [employer]ist Required: No Allergies No Known Allergies Allergy (Verified 09/03/24 13:49) HPI Comments Details: Mihaela is very pleasant 74 years old female who presents in my office with complains on pain in the right hip joint. In the past she received the injection into the right hip by Dr. Villalta, she was seen by me postoperatively and she reported 100% pain relief for 40 days. She is in my office again requesting to repeat the injection. She is already scheduled to have the injection to be performed on her right hip on 09/29/2024. I will see this patient after the injection. [facility] Medical History Encounter for colorectal cancer screening using Cologuard test (~11/15/21) Ischemic cardiomyopathy Presence of automatic (implantable) cardiac defibrillator Unspecified systolic (congestive) heart failure Borderline hypercholesterolemia Atherosclerotic heart disease of [place] coronary artery without angina pectoris Arthritis of right hip Type 2 diabetes mellitus with diabetic polyneuropathy Surgical History History of implantable cardioverter-defibrillator (ICD) insertion History of heart artery stent History of placement of internal cardiac defibrillator History of cardiac defibrillator placement Family History Father Medical history unknown Mother Medical history unknown Social History Housing: Apartment Alcohol intake: never Patient Tobacco Use Status: Never used Tobacco Tobacco use type: Cigarette e-Cigarette/Vaping Use: Never Used Second Hand Smoke Exposure: No Advance Directives Date on File: 10/24/22 service: No Current occupational status: retired Cognitive needs: Yes (cane) Hearing needs: No Vision needs: Yes (glasses) Review of Systems Const All systems reviewed & are unremarkable except as noted in HPI and below ENT Reports Normal hearing present Neuro Reports Normal hearing present, Denies confusion and Denies Sensory deficit (Neuro) Psych Denies confusion Physical Exam Vital Signs: Last Vital Signs Pulse 71 09/03/24 13:44 Resp 16 09/03/24 13:44 Pulse Ox 100 09/03/24 13:44 Oxygen Delivery Method Room Air 09/03/24 13:44 Const General: comfortable, no acute distress, well developed, alert and awake; No confusion Orientation/consciousness: No confusion Eyes Pupils: Equal, round and reactive pupils present EOM: EOMs intact bilaterally Chest Chest palpation & inspection: normal inspection of the chest Resp Effort & Inspection: normal respiratory effort, able to speak in complete sentences, normal respiratory pattern, no audible wheezes and no cough Cardio Jugular venous distension: no JVD Neuro General: No confusion Cranial nerves: Yes Equal, round and reactive pupils present and Yes Normal hearing present Sensory Exam: No Sensory deficit (Neuro) Extrem Other: Crepitus on palpation on the right knee. Tenderness of palpation of the right knee. Lateral rotation of the hip and medial rotation of the hip causes severe discomfort in the groin. Range of motion of the right hip is significantly diminished. Psych Speech and movement: Normal speech and movement present Affect: normal affect Attitude: cooperative Thought process: Normal thought process present Thought content: Normal thought content present Insight: Good insight present (Psych) Judgement: Good judgement present (Psych) Assessment & Plan Assessment & Plan (1) Type 2 diabetes mellitus with diabetic polyneuropathy: Code(s): E11.42 - Type 2 diabetes mellitus with diabetic polyneuropathy Category: Medical Qualifiers: Diabetes mellitus group home insulin use: without intermission coordinator use Qualified Code(s): E11.42 - Type 2 diabetes mellitus with diabetic polyneuropathy (2) Arthritis of right hip: Code(s): M16.11 - Unilateral primary osteoarthritis, right hip Category: Medical (3) Osteoarthritis of right knee: Code(s): M17.11 - Unilateral primary osteoarthritis, right knee Category: Medical Plan: The hip injection performed by Dr. Villalta resulted in excellent 100% pain improvement. The patient will be scheduled for another injection it has been 3 years since the last intra-articular steroid injection. I will assess the patient after the procedure. (4) Unspecified systolic (congestive) heart failure: Code(s): I50.20 - Unspecified systolic (congestive) heart failure Category: Medical Qualifiers: Heart failure chronicity: unspecified Qualified Code(s): I50.20 - Unspecified systolic (congestive) heart failure Plan Plan as above. Coding Level of Care Code Est Pt Level 3 (55731) Diagnoses Type 2 diabetes mellitus with diabetic polyneuropathy, without long-term current use of insulin E11.42 Diabetes mellitus intermission coordinator insulin use: without group home use Arthritis of right hip M16.11 Osteoarthritis of right knee M17.11 Systolic congestive heart failure, unspecified HF chronicity I50.20 Heart failure chronicity: unspecified
[2024-09-03 13:44] VITALS: PULSE 71; RESP 16; O2SAT 100
== END 2024-09-03 14:13 | disposition home or self-care (01) ==
PROVIDERS: PCP Internal Medicine; Visit Provider Anesthesiology
DX: E11.42 Type 2 diabetes mellitus with diabetic polyneuropathy (principal); M16.11 Unilateral primary osteoarthritis, right hip; M17.11 Unilateral primary osteoarthritis, right knee; I50.20 Unspecified systolic (congestive) heart failure
CPT/HCPCS: 99213

== ENCOUNTER → 2024-09-03 13:31 | Outpatient (BNVA) | payer MEDICARE, MEDICAID, SELFPAY | PROVIDERS: PCP Internal Medicine; Visit Provider Anesthesiology | DX: E11.42 Type 2 diabetes mellitus with diabetic polyneuropathy (principal); M16.11 Unilateral primary osteoarthritis, right hip; M17.11 Unilateral primary osteoarthritis, right knee; I50.20 Unspecified systolic (congestive) heart failure | CPT/HCPCS: 99212 ==

== ENCOUNTER 2024-09-24 09:48 | Outpatient (AMB) | payer MEDICARE, MEDICAID, SELFPAY ==
--- OUTSIDE RECORDS SUMMARY | 2024-09-24 10:20 | XMS_ITS ---
Author Name [facility] Organization Unknown Care Team Organization Name Specialty Phone Email Start Date End [email or web address]
--- OUTSIDE RECORDS SUMMARY | 2024-09-24 10:21 | XMS_ITS | Data Portability ---
Author Organization KASANDRA Madison [facility] [address] Address [address] [place] [address] Assessment No assessment recorded. Plan of Treatment Reminders Order Date Submit Date Provider Last Modified By Organization Details Last Modified Time Details Appointments None recorded. Lab None recorded. Referral None recorded. Procedures None recorded. Surgeries None recorded. Imaging None recorded. Medication Orders amoxicillin 875 mg-potassiu m clavulanate 125 mg tablet 2021 022 [facility] #[id number], [address] [place] [address], [address], 12:59:07 benzonatate 200 mg capsule 2021 022 [facility] #[id number], [address] [place], [address], 2 12:59:06 loratadine 10 mg tablet 2021 022 [facility] #[id number], [address] [place] [address], [address], 12:59:06 Patient TargetsNo targets recorded. Patient Instructions Encounter Date Encounter Id Patient Instructions Last Modified By Organization Details Last Modified Time 02/20/2022 [id number] cough: care instructions [email or web address] Not available 02/20/2022 12:59:03 You are being [...] watery post nasal drip. 6. Saline Nasal [place] is recommended. Since an antibiotic was prescribed [...] or lung pathology. Thank you for using [facility] today - please don't hesitate to contact up or return to see if you have any questions or concerns. [email or web address] Not available 02/20/2022 13:00:42 Reason for Referral None Reported. Problems Name Problem SNOMED Code Status Onset Date Resolution Date Notes Provider Name and Address Organization Details Recorded Time Diabetes mellitus 25929698 Active 2021 KASANDRA Braun - [facility] 2 12:12:43 Hypertensive disorder 19915171 Active 2021 KASANDRA Braun - [facility] 2 12:12:56 Hyperlipidemia 80032789 Active 2021 MICHAEL valdes [place] - [facility] 2 12:13:05 Arthritis 1631193 Active 2021 [facility]des [facility] - [facility] [...] Heart rate Respiratory rate Body temperature Systolic And Diastolic Provider Name and Address Organization Details Last Updated DateTime 160.02 cm 26 kg/m2 28715.0 8 g 100 % 100 % 72 /min 18 /min 98.1 [degF] 111/74 mm[Hg] MICHAEL SLAUGHTER [facility] 2 12:14:49 Social History Question Answer Notes LastModified by Function Space Details LastModified Time Tobacco Smoking Status Never Smoker MICHAEL valdes [employer] 02/20/2022 12:13:51 Have You Recently Traveled Abroad? No [email or web address] Information not available 02/20/2022 Sex: Unknown Functional Status Question Answer Note LastModified by Function Space Details LastModified Time Do you use any illicit or recreational drugs? No Information not available 02/20/2022 Do you or have you ever used any other forms of tobacco or nicotine? No [email or web address] Information not available 02/20/2022 What is your level of alcohol consumption? None Information not available 02/20/2022 Mental Status None recorded. Family History Relationship Description Onset Age of this Age Resolved Age Notes LastModified by Organization Details LastModified Time Father No current problems or disability [email or web address] Not available 02/20 12:13:33 Mother No current problems or disability [email or web address] Not available 02/20 12:13:33 Medical History No medical history recorded. Gynecological HistoryNo gynecological history recorded. Obstetrics History GPAL:G 0 P 0 0 0 0 Past Encounters Encounter ID Performer Location Encounter Start Date Encounter Closed Date Diagnosis/Indication Diagnosis SNOMED-CT Code Diagnosis ICD10 Code Diagnosis Note [id number] KASANDRA DIAZ [address] [place] [phone] 02/20/2022 11:36:38 02/20/2022 13:11:56 Acute sinusitis 32635140 J01.90 Cough 95029722 R05.9 Health Concerns Section Related Observation LastModified by Organization Detai ls LastModified Time None Recorded Concern Status LastModified by Organization Details LastModified Time None Recorded Advance Directives Directive None Recorded Payers Insurance Date Sequence Insurance Name Policy Number Policy Turner Covered Member ID Turner Member ID Guarantor Name 02/20/2022 1 [place] [email or web address] Mihaela Qiu Castro [id number] Mihaela Erazo 03/16/2022 2 [place] [facility] Mihaela Erazo [id number] Mihaela Erazo Notes Date Note Type Note [...] of head congestion and drainage. KASANDRA DIAZ [address] [place], [address], [place] - [facility] 02/20/2022 14:10:51 OBGyn Episode No OBEpisode recorded.
--- NOTE | 2024-09-24 10:35 | A.OFFPC_ITS ---
Vital Signs 09/24/24 10:36 Height 5 ft 4 in Weight 129 lb BMI 22.1 BP 100/48 L Blood Pressure Location Lt brachial Position Sitting Pulse 70 Pulse Source Pulse Oximeter Pulse Oximetry (%) 100 Oxygen Delivery Method Room Air Intake Visit Reasons: 3 month f/u Paste Maker Required: No Accompanied by: Self / Same As Patient Allergies No Known Allergies Allergy (Verified 09/24/24 10:38) Tobacco use date assessed: 07/09/24 Fall risk assessment: No Falls in past year Last assessed Fall Risk: 09/24/24 Dental Screening Dental Screen Date: 05/21/24 [facility] Medical History Encounter for colorectal cancer screening using Cologuard test (~11/15/21) Ischemic cardiomyopathy Presence of automatic (implantable) cardiac defibrillator Unspecified systolic (congestive) heart failure Borderline hypercholesterolemia Atherosclerotic heart disease of [place] coronary artery without angina pectoris Arthritis of right hip Type 2 diabetes mellitus with diabetic polyneuropathy Surgical History History of implantable cardioverter-defibrillator (ICD) insertion History of heart artery stent History of placement of internal cardiac defibrillator History of cardiac defibrillator placement Family History Father Medical history unknown Mother Medical history unknown Social History Housing: Apartment Alcohol intake: never Patient Tobacco Use Status: Never used Tobacco Tobacco use type: Cigarette e-Cigarette/Vaping Use: Never Used Second Hand Smoke Exposure: No Advance Directives Date on File: 10/24/22 service: No Current occupational status: retired Cognitive needs: Yes (cane) Hearing needs: No Vision needs: Yes (glasses) Questionnaire Thrive Questionnaire Date Thrive assessed: 07/09/24 I am a: Patient What is your living situation today?: I have a steady place to live Within the past 12 months, did the food you bought not last and you didn't have the money to get more?: I choose not to answer this question Within the past 12 months, did you worry whether your food would run out before you got money to buy more?: I choose not to answer this question Do you have trouble paying for medicines?: No Do you have trouble getting transportation to medical appointments?: No Do you have trouble paying your heating and electricity bill?: No Do you have trouble taking care of your child, family member or friend?: No Do you have trouble with day-to-day activities such as bathing, preparing meals, shopping, managing finances, etc.?: No Are you currently unemployed and looking for a job?: Yes Are you interested in more education?: No Please select the resources that you would like help with: None Currently or been in a relationship where the following occur: I choose not to answer THRIVE Score: 0 DIANA-7 AMB Questionnaire DIANA-7 Date DIANA - 7 assessed: 07/09/24 Source: Developed by Drs. Alonzo Hays, Cordelia Irby, Arthur Aden and colleagues, with an educational maciej from [employer]. Physical exam (Primary Care) Vital Signs: Last Vital Signs Pulse 70 09/24/24 10:36 BP 100/48 L 09/24/24 10:36 Pulse Ox 100 09/24/24 10:36 Oxygen Delivery Method Room Air 09/24/24 10:36 BMI result Body Mass Index 22.1 Tobacco/Smoking Status: Tobacco use Status Tobacco use date assessed 07/09/24 09/24/24 10:36 Patient Tobacco Use Status Never used Tobacco 09/24/24 10:36 Tobacco use type Cigarette 09/24/24 10:36 e-Cigarette/Vaping Use Never Used 09/24/24 10:36 Thrive Assessment: Date of Thrive Assessment Date Thrive assessed 07/09/24 09/24/24 10:36 Currently or been in a relationship where the following occur: I choose not to answer Results AMB Hemoglobin A1c AMB Hemoglobin A1c 7.3 % Last Edit by AUGUSTINE Lopez on 09/24/24 10:55 Results Reviewed Results Reviewed: Laboratory Last Values Hgb A1c (Clinic) 7.3 % (4.0-6.0) H 09/24/24 10:24 Coding Level of Care Code Est Pt Level 3 (78468) Complex EM visit Add On G2211 Diagnoses Type 2 diabetes mellitus with diabetic polyneuropathy, without long-term current use of insulin E11.42 Diabetes mellitus mcc insulin use: without termite technician use Assessment & Plan Assessment & Plan (1) Type 2 diabetes mellitus with diabetic polyneuropathy: Code(s): E11.42 - Type 2 diabetes mellitus with diabetic polyneuropathy Category: Medical Qualifiers: Diabetes mellitus termite technician insulin use: without mcc use Qualified Code(s): E11.42 - Type 2 diabetes mellitus with diabetic polyneuropathy Plan: Improvement in the A1c, Continue meds at same dosage. Proceed to get steroid injections in the right hip Plan History of Present Illness - The patient is a 74-year-old female presenting with osteoarthritis and diabetes mellitus. - Osteoarthritis: Reports a popping sensation in her leg from knee to hip, requiring support while walking at home. - Scheduled for a hip injection and plans to discuss knee issues. - Diabetes Mellitus: Blood sugar levels are well-controlled with adherence to medication. Social History Review of Systems - Musculoskeletal: Reports a popping sensation in the leg from knee to hip, requiring support while walking at home. Denies falls. - Endocrine: Reports well-controlled blood sugar levels. Physical Exam General: Cooperative and healthy appearing Nutritional Appearance: Well nourished Orientation/consciousness: Patient oriented x3 Limitations: No limitations Head: Normal to inspection General: Appearance normal, both eyes and all related structures Neck: Normal visual inspection Chest: Normal palpation of entire chest wall Respiratory: N ormal respiratory effort Neurology: Patient oriented x3, but reports occasional instability when walking, requiring support. Results Plan 1. Osteoarthritis - The patient is scheduled for a hip injection on Saturday and plans to discuss knee issues at that time. 2. Diabetes Mellitus - Continue current diabetes medications as blood sugar levels are well- controlled. - Follow-up in three months with blood work to be ordered at that time. Discussion Notes I discussed with the patient the importance of continuing her current diabetes medications as her blood sugar levels are well-controlled. We also talked about her upcoming hip injection and the need to address her knee issues during that visit. Follow-up is scheduled in three months, at which time blood work will be ordered. Patient Instructions - Continue taking all diabetes medications as prescribed. - Attend the scheduled hip injection appointment and discuss knee issues with the specialist. - Return for follow-up in three months for blood work. Orders: Orders AMB Hemoglobin A1c Today E11.42 - Type 2 diabetes mellitus with diabetic polyneuropathy
[2024-09-24 10:36] VITALS: BP 100/48; PULSE 70; O2SAT 100; BMI 22.1
== END 2024-09-24 11:13 | disposition home or self-care (01) ==
LOC: HO.HMCH 09:49
PROVIDERS: PCP Internal Medicine; Visit Provider Internal Medicine
DX: E11.42 Type 2 diabetes mellitus with diabetic polyneuropathy (principal)

== ENCOUNTER → 2024-09-24 09:48 | Outpatient (BNVA) | payer MEDICARE, MEDICAID, SELFPAY | PROVIDERS: PCP Internal Medicine; Visit Provider Internal Medicine | DX: E11.42 Type 2 diabetes mellitus with diabetic polyneuropathy (principal) | CPT/HCPCS: 83036; 99212 ==

== ENCOUNTER 2024-09-29 10:06 | Outpatient (REF) | payer MEDICARE, MEDICAID, SELFPAY ==
--- NOTE | ~2024-09-29 | FL_ITS ---
EXAMINATION: FL GUIDANCE ONLY HISTORY: M16.11 - Unilateral primary osteoarthritis, right hip COMPARISON: None available. TECHNIQUE: Fluoroscopy time: 0.2 minutes. Cumulative Dose: 7.09 mGy. DAP: 0.123 mGym2 Images: 2. FINDINGS: Fluoroscopic spot films of the right hip demonstrate a needle in place and contrast material in the joint space. FL/FL guidance in treatment room IMPRESSION: Fluoroscopy during procedure. Please see procedure report for additional information. Electronically signed by: Alonzo Mckenna MD 09/29/2024 11:42 AM EDT
--- OUTSIDE RECORDS SUMMARY | 2024-09-29 11:07 | XMS_ITS | Data Portability ---
Author Organization [facility]ASANDRA [facility] [address] Address [address] [place] [address] Assessment No assessment recorded. Plan of Treatment Reminders Order Date Submit Date Provider Last Modified By Organization Details Last Modified Time Details Appointments None recorded. Lab None recorded. Referral None recorded. Procedures None recorded. Surgeries None recorded. Imaging None recorded. Medication Orders amoxicillin 875 mg-potassiu m clavulanate 125 [address] tablet [address] [id number], [address] [place] [address], [address], 2 12:59:07 benzonatate 200 mg capsule [address] [id number], [address] [place], [address], 2 12:59:06 loratadine 10 mg tablet [address] [id number], [address] [place] [address], [address], 2 12:59:06 Patient TargetsNo targets recorded. Patient Instructions Encounter Date Encounter Id Patient Instructions Last Modified By Organization Details Last Modified Time 02/20/2022 [id number] cough: care instructions [email or web address] Not available 02/20/2022 12:59:03 You are being [...] watery post nasal drip. 6. Saline Nasal [place] is recommended. Since an antibiotic was prescribed [...] or lung pathology. Thank you for using [facility] today - please don't hesitate to contact up or return to see if you have any questions or concerns. [email or web address] Not available 02/20/2022 13:00:42 Reason for Referral None Reported. Problems Name Problem SNOMED Code Status Onset Date Resolution Date Notes Provider Name and Address Organization Details Recorded Time Diabetes mellitus 68566541 Active 2021 KASANDRA Braun - [facility] 2 12:12:43 Hypertensive disorder 15150971 Active 2021 KASANDRA Braun - [facility] 2 12:12:56 Hyperlipidemia 11323115 Active 2021 MICHAEL valdes PA - [facility] 2 12:13:05 Arthritis 4639084 Active 2021 [facility] - [facility] [...] Last Updated DateTime 160.02 cm 26 kg/m2 51333.0 8 g 100 % 100 % 72 /min 18 /min 98.1 [degF] 111/74 mm[Hg] MICHAEL SLAUGHTER [facility] 2 12:14:49 Social History Question Answer Notes LastModified by [employer] Details LastModified Time Tobacco Smoking Status Never Smoker MICHAEL valdes [employer] 02/20/2022 12:13:51 Have You Recently Traveled Abroad? No [email or web address] Information not available 02/20/2022 Sex: Unknown Functional Status Question Answer Note LastModified by [employer] Details LastModified Time Do you use any illicit or recreational drugs? No [email or web address] Information not available 02/20/2022 Do you or have you ever used any other forms of tobacco or nicotine? No Information not available 02/20/2022 What is your level of alcohol consumption? None [email or web address] Information not available 02/20/2022 Mental Status None recorded. Family History Relationship Description Onset Age of this Age Resolved Age Notes LastModified by Organization Details LastModified Time Father No current problems or disability [email or web address] Not available 02/20 12:13:33 Mother No current problems or disability [email or web address] Not available 02/20 12:13:33 Medical History No medical history recorded. Gynecological HistoryNo gynecological history recorded. Obstetrics History GPAL:G 0 P 0 0 0 0 Past Encounters Encounter ID Performer Location Encounter Start Date Encounter Closed Date Diagnosis/Indication Diagnosis SNOMED-CT Code Diagnosis ICD10 Code Diagnosis Note [id number] KASANDRA DIAZ [address] [place] [id number] 02/20/2022 11:36:38 02/20/2022 13:11:56 Acute sinusitis 59574667 J01.90 Cough 04978581 R05.9 Health Concerns Section Related Observation LastModified by Organization Detai ls LastModified Time None Recorded Concern Status LastModified by Organization Details LastModified Time None Recorded Advance Directives Directive None Recorded Payers Insurance Date Sequence Insurance Name Policy Number Policy Turner Covered Member ID Turner Member ID Guarantor Name 02/20/2022 1 [place] [employer] Mihaela Qiu Castro [id number] Mihaela rEazo 03/16/2022 2 [place] [facility] Mihaela Erazo [id number] Mihaela Erazo Notes Date Note Type Note [...] KASANDRA DIAZ [address] [place], [address], [place] - [facility] 02/20/2022 14:10:51 OBGyn Episode No OBEpisode recorded.
== END 2024-09-29 10:07 | disposition home or self-care (01) ==
LOC: CF 10:06
PROVIDERS: Visit Provider Anesthesiology
DX: M16.11 Unilateral primary osteoarthritis, right hip (principal); M25.551 Pain in right hip
CPT/HCPCS: 20610; J2003; J2795; J3301; Q9967

== ENCOUNTER 2024-09-29 10:22 | Outpatient (AMB) | payer MEDICARE, MEDICAID, SELFPAY ==
--- NOTE | 2024-09-29 10:30 | MHC.OFFVIS ---
Vital Signs 09/29/24 10:37 Height 5 ft 4 in Weight 127 lb BMI 21.8 BP 95/56 L Blood Pressure Location Lt brachial Position Sitting Respiration 16 Pulse 59 Pulse Source Pulse Oximeter Pulse Oximetry (%) 98 Oxygen Delivery Method Room Air Intake Visit Reasons: RIGHT HIP INJECTION Spool Carrier Required: No Allergies No Known Allergies Allergy (Verified 09/24/24 10:38) [facility] Medical History Encounter for colorectal cancer screening using Cologuard test (~11/15/21) Ischemic cardiomyopathy Presence of automatic (implantable) cardiac defibrillator Unspecified systolic (congestive) heart failure Borderline hypercholesterolemia Atherosclerotic heart disease of [place] coronary artery without angina pectoris Arthritis of right hip Type 2 diabetes mellitus with diabetic polyneuropathy Surgical History History of implantable cardioverter-defibrillator (ICD) insertion History of heart artery stent History of placement of internal cardiac defibrillator History of cardiac defibrillator placement Family History Father Medical history unknown Mother Medical history unknown Social History Housing: Apartment Alcohol intake: never Patient Tobacco Use Status: Never used Tobacco Tobacco use type: Cigarette e-Cigarette/Vaping Use: Never Used Second Hand Smoke Exposure: No Advance Directives Date on File: 10/24/22 service: No Current occupational status: retired Cognitive needs: Yes (cane) Hearing needs: No Vision needs: Yes (glasses) Physical Exam Vital Signs: Last Vital Signs Pulse 59 09/29/24 10:37 Resp 16 09/29/24 10:37 BP 95/56 L 09/29/24 10:37 Pulse Ox 98 09/29/24 10:37 Oxygen Delivery Method Room Air 09/29/24 10:37 BMI result Body Mass Index 21.8 Assessment & Plan Assessment & Plan (1) Osteoarthritis: Code(s): M19.90 - Unspecified osteoarthritis, unspecified site Category: Medical Qualifiers: Osteoarthritis location: hip Osteoarthritis type: primary Laterality: right Qualified Code(s): M16.11 - Unilateral primary osteoarthritis, right hip (2) Right hip pain: Code(s): M25.551 - Pain in right hip Category: Medical Plan Itra-articular right hip steroid injection. Informed consent was explained to the patient. All questions were explained and? answered.? The patient was taken inside the operating room where she was positioned light lateral decubitus on the operating table.? Time-out was performed delineating correct site, side, the nature of the procedure, patient's allergy, preoperative antibiotic if needed.? All operating room staff was participating in OR time-out procedure.? The patient stated his name. Non dependent right hip was prepped with ChloraPrep and draped with sterile towels.? The C-arm was brought over the operating field and the picture of bilateral hip joints were obtained on the screen.? The smaller right hip joint was chosen as the target for the injection.? The trochanter position was noted on the screen.? The projection of the trochanter to the skin was noted, the direction of the femoral neck was noted.? The skin was anesthetized using 2% lidocaine at the trochanter area.? 22 gauge 5 in needle was inserted through the skin and advanced to the hip joint silhouette on anterior posterior view.? 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 This time I was not able to advance the needle into the joint space, the injection was performed in periarticular fashion. There were no intravascular spread of the contrast. 6 cc of ropivacaine 0.5% mixed with Kenalog 30 mg was injected into the area.? The needle was removed sterile dressing was applied. The patient tolerated procedure well. Orders: Orders FL guidance in treatment room Today M16.11 - Unilateral primary osteoarthritis, right hip Coding Level of Care Code Procedure Only Diagnoses Primary osteoarthritis of right hip M16.11 Osteoarthritis location: hip Osteoarthritis type: primary Laterality: right Right hip pain M25.551
[2024-09-29 10:37] VITALS: BP 95/56; PULSE 59; RESP 16; O2SAT 98; BMI 21.8
== END 2024-09-29 10:52 | disposition home or self-care (01) ==
LOC: HO.PMCPRC 10:22
PROVIDERS: PCP Internal Medicine; Visit Provider Anesthesiology
DX: M16.11 Unilateral primary osteoarthritis, right hip (principal); M25.551 Pain in right hip
CPT/HCPCS: 20610; 77002

== ENCOUNTER → 2024-10-13 23:59 | Outpatient (BNV) | payer MEDICARE, MEDICAID, SELFPAY ==
--- NOTE | 2024-10-20 21:08 | MHC.OFFVIS ---
Intake Visit Reasons: Remote ICD check- Biotronik Allergies No Known Allergies Allergy (Verified 09/24/24 10:38) [facility] Medical History Encounter for colorectal cancer screening using Cologuard test (~11/15/21) Ischemic cardiomyopathy Presence of automatic (implantable) cardiac defibrillator Unspecified systolic (congestive) heart failure Borderline hypercholesterolemia Atherosclerotic heart disease of [place] coronary artery without angina pectoris Arthritis of right hip Type 2 diabetes mellitus with diabetic polyneuropathy Surgical History History of implantable cardioverter-defibrillator (ICD) insertion History of heart artery stent History of placement of internal cardiac defibrillator History of cardiac defibrillator placement Family History Father Medical history unknown Mother Medical history unknown Social History Housing: Apartment Alcohol intake: never Patient Tobacco Use Status: Never used Tobacco Tobacco use type: Cigarette e-Cigarette/Vaping Use: Never Used Second Hand Smoke Exposure: No Advance Directives Date on File: 10/24/22 service: No Current occupational status: retired Cognitive needs: Yes (cane) Hearing needs: No Vision needs: Yes (glasses) Office Procedures Cardiac Device Check Cardiac Device Check Details: Date of service 10/13/2024; Battery life 75%; normal lead parameters; no treated VT/VF; normal ICD function. [id number] Cardiac Interrogation, implant defibrillator w/interim Procedure code (CPT) selection complete Assessment & Plan Assessment & Plan (1) Presence of automatic (implantable) cardiac defibrillator: Code(s): Z95.810 - Presence of automatic (implantable) cardiac defibrillator Category: Medical (2) Ischemic cardiomyopathy: Code(s): I25.5 - Ischemic cardiomyopathy Category: Medical Plan x Coding Level of Care Code Procedure Only Diagnoses Presence of automatic (implantable) cardiac defibrillator Z95.810 Ischemic cardiomyopathy I25.5 CPT Codes Cardiac Device Check - Cardiac Device 13: [id number] Cardiac Interrogation, implant defibrillator w/interim ([id number])
== END ==
PROVIDERS: PCP Internal Medicine; Visit Provider Internal Medicine
DX: I25.5 Ischemic cardiomyopathy (principal); Z95.810 Presence of automatic (implantable) cardiac defibrillator
CPT/HCPCS: 93295

== ENCOUNTER → 2024-10-13 23:59 | Outpatient (BNV) | payer MEDICARE, MEDICAID, SELFPAY ==
--- NOTE | 2024-10-20 21:06 | MHC.OFFVIS ---
Intake Visit Reasons: Remote HF check- Biotronik Allergies No Known Allergies Allergy (Verified 09/24/24 10:38) [facility] Medical History Encounter for colorectal cancer screening using Cologuard test (~11/15/21) Ischemic cardiomyopathy Presence of automatic (implantable) cardiac defibrillator Unspecified systolic (congestive) heart failure Borderline hypercholesterolemia Atherosclerotic heart disease of [place] coronary artery without angina pectoris Arthritis of right hip Type 2 diabetes mellitus with diabetic polyneuropathy Surgical History History of implantable cardioverter-defibrillator (ICD) insertion History of heart artery stent History of placement of internal cardiac defibrillator History of cardiac defibrillator placement Family History Father Medical history unknown Mother Medical history unknown Social History Housing: Apartment Alcohol intake: never Patient Tobacco Use Status: Never used Tobacco Tobacco use type: Cigarette e-Cigarette/Vaping Use: Never Used Second Hand Smoke Exposure: No Advance Directives Date on File: 10/24/22 service: No Current occupational status: retired Cognitive needs: Yes (cane) Hearing needs: No Vision needs: Yes (glasses) Office Procedures Cardiac Device Check Cardiac Device Check Details: Date of service- 10/13/2024; based on impedance data and physiological variables, there is no evidence of worsening congestive heart failure. [id number] Cardiac Device Interrogation, cardio physiologic monitor Procedure code (CPT) selection complete Assessment & Plan Assessment & Plan (1) Presence of automatic (implantable) cardiac defibrillator: Code(s): Z95.810 - Presence of automatic (implantable) cardiac defibrillator Category: Medical (2) Ischemic cardiomyopathy: Code(s): I25.5 - Ischemic cardiomyopathy Category: Medical Plan x Coding Level of Care Code Procedure Only Diagnoses Presence of automatic (implantable) cardiac defibrillator Z95.810 Ischemic cardiomyopathy I25.5 CPT Codes Cardiac Device Check - Cardiac Device 15: [id number] Cardiac Device Interrogation, cardio physiologic monitor ([id number])
== END ==
PROVIDERS: PCP Internal Medicine; Visit Provider Internal Medicine
DX: I25.5 Ischemic cardiomyopathy (principal); Z95.810 Presence of automatic (implantable) cardiac defibrillator
CPT/HCPCS: 93297

== ENCOUNTER 2024-11-04 10:17 | Outpatient (AMB) | payer MEDICARE, MEDICAID, SELFPAY ==
[2024-11-04 10:27] VITALS: BP 90/58; PULSE 63; BMI 21.6
--- NOTE | 2024-11-04 10:27 | A.OFFVIS_ITS ---
Vital Signs 11/04/24 10:27 Height 5 ft 4 in Weight 125 lb 10.616 oz BMI 21.6 BP 90/58 L Blood Pressure Location Lt brachial Position Sitting Pulse 63 Pulse Source Monitor Intake Visit Reasons: 6m follow up Allergies No Known Allergies Allergy (Verified 09/24/24 10:38) Medication List - Last Reconciled 11/04/24 by Narinder Kramer MD aspirin (Adult Low Dose Aspirin) 81 mg PO DAILY blood sugar diagnostic ([employer] Ultra Test strips) As directed blood-glucose meter ([employer] Ultra2 Meter) As directed cane Need for quad cane cyclobenzaprine 10 mg PO BEDTIME furosemide 20 mg PO DAILY gabapentin (Neurontin) 300 mg PO BID 90 days lancets ([employer] Lancets) USE TO TEST DAILY lisinopril 10 mg PO DAILY metformin ER 750 mg PO BID metoprolol succinate ER 25 mg PO BID rosuvastatin 40 mg PO DAILY spironolactone 25 mg PO DAILY HPI Comments Details: Mihaela returns for follow-up regarding ischemic cardiomyopathy. To recall, she had a myocardial infarction in 2005 and underwent LAD stenting. Overall, she is fine for the most part. Few months back, she had one episode of brief chest pain but spontaneously resolved. She has not had that recur and also she does not get any exertional chest pains. Hence unclear etiology for that single episode of pain. Otherwise, she is quite frail but getting along okay. [facility] Medical History Encounter for colorectal cancer screening using Cologuard test (~11/15/21) Ischemic cardiomyopathy Presence of automatic (implantable) cardiac defibrillator Unspecified systolic (congestive) heart failure Borderline hypercholesterolemia Atherosclerotic heart disease of [place] coronary artery without angina pectoris Arthritis of right hip Type 2 diabetes mellitus with diabetic polyneuropathy Surgical History History of implantable cardioverter-defibrillator (ICD) insertion History of heart artery stent History of placement of internal cardiac defibrillator History of cardiac defibrillator placement Family History Father Medical history unknown Mother Medical history unknown Social History Housing: Apartment Alcohol intake: never Patient Tobacco Use Status: Never used Tobacco Tobacco use type: Cigarette e-Cigarette/Vaping Use: Never Used Second Hand Smoke Exposure: No Advance Directives Date on File: 10/24/22 service: No Current occupational status: retired Cognitive needs: Yes (cane) Hearing needs: No Vision needs: Yes (glasses) Review of Systems Const Denies weakness ENT Denies dizziness Card Reports chest pain, Reports chest pain at rest, Denies chest pain with activity, Denies syncope, Denies rapid heart rate, Denies pedal edema, Denies edema, Denies leg edema, Denies lightheadedness, Denies palpitations, Denies dyspnea, Denies dyspnea on exertion and Denies orthopnea Resp Denies cough, Denies dyspnea and Denies dyspnea on exertion GI Denies hematochezia and Denies change in stool character Musc Denies abnormal gait, Denies muscle cramps, Denies muscle weakness, Denies numbness, Denies radiating pain into limb and Denies tingling Neuro Denies abnormal gait, Denies dizziness, Denies syncope, Denies numbness, Denies tingling and Denies weakness Endo Denies palpitations Physical Exam Vital Signs: Last Vital Signs Pulse 63 11/04/24 10:27 BP 90/58 L 11/04/24 10:27 BMI result Body Mass Index 21.6 Const General: comfortable and no acute distress Orientation/consciousness: patient oriented x3 HEENT Other: Unremarkable Head: Yes normal to inspection Neck Neck: Yes normal visual inspection Chest Chest palpation & inspection: normal inspection of the chest Resp Auscultation: clear to auscultation bilaterally Cardio Palpation: normal PMI Heart sounds: S1 normal heart sound present, S2 normal heart sound present, no gallops, no murmurs and no rubs GI Palpation (GI): Soft to palpation Back/Spine/Pelvis Other: unremarkable Skin General skin exam: no rashes or lesions noted Neuro General: patient oriented x3 Extrem General: Yes normal to inspection Psych Mental Status: mental status grossly normal Office Procedures EKG Details: EKG with underlying sinus rhythm at 63/Min; [place] prolongation to 298 millisecond; leftward axis; old anterior/inferior infarct; [place]. [id number], Complete Assessment & Plan Assessment & Plan (1) Ischemic cardiomyopathy: Code(s): I25.5 - Ischemic cardiomyopathy Category: Medical Plan: In the last echocardiogram, LVEF 15-20%. Wall motion abnormality in LAD territory. She remains on low-dose beta-blockers, lisinopril, spironolactone. On small dose of diuretic as well. Can consider Farxiga or Jardiance, but she does run lowish blood pressures. Not clear if she will tolerate. (2) Atherosclerotic heart disease of [place] coronary artery without angina pectoris: Code(s): I25.10 - Atherosclerotic heart disease of [place] coronary artery without angina pectoris Category: Medical Qualifiers: [place] vs. transplanted heart: [place] heart Qualified Code(s): I25.10 - Atherosclerotic heart disease of [place] coronary artery without angina pectoris Plan: Myocardial perfusion imaging study in the past large LAD territory infarct. Continue aspirin, statins. Last LDL 45 mg/dl. If she does get any recurring chest pain, we will need repeat ischemic evaluation. We discussed that today. (3) Essential hypertension: Code(s): I10 - Essential (primary) hypertension Category: Medical Plan: Runs low but stable. (4) Presence of automatic (implantable) cardiac defibrillator: Code(s): Z95.810 - Presence of automatic (implantable) cardiac defibrillator Category: Medical Plan: Monitored remotely. Plan Discussion Notes I discussed with the patient that since the chest pain was a one-time occurrence, we will monitor it for now. I advised her to contact me if the pain recurs, at which point we may consider a stress test. Patient was informed and verbally consented to the use of an ambient scribe for clinic note documentation during this visit. Patient Instructions: - Monitor for any recurrence of chest pain and report immediately. Coding Level of Care Code Est Pt Level 4 (34148) Complex EM visit Add On G2211 Diagnoses Ischemic cardiomyopathy I25.5 Atherosclerosis of [place] coronary artery of [place] heart without angina pectoris I25.10 [place] vs. transplanted heart: [place] heart Essential hypertension I10 Presence of automatic (implantable) cardiac defibrillator Z95.810 CPT Codes EKG - CPT: 33856-Fryzkwkqgoxrrxjoz, Complete ([id number])
== END 2024-11-04 10:56 | disposition home or self-care (01) ==
LOC: HO.HCS 10:18
PROVIDERS: PCP Internal Medicine; Visit Provider Internal Medicine
DX: I25.5 Ischemic cardiomyopathy (principal); I25.10 Atherosclerotic heart disease of native coronary artery without angina pectoris; I10 Essential (primary) hypertension; Z95.810 Presence of automatic (implantable) cardiac defibrillator
CPT/HCPCS: 93010; 99214; G2211

== ENCOUNTER → 2024-11-04 10:17 | Outpatient (BNVA) | payer MEDICARE, MEDICAID, SELFPAY | PROVIDERS: PCP Internal Medicine; Visit Provider Internal Medicine | DX: I25.5 Ischemic cardiomyopathy (principal); I25.10 Atherosclerotic heart disease of native coronary artery without angina pectoris; I10 Essential (primary) hypertension; Z95.810 Presence of automatic (implantable) cardiac defibrillator | CPT/HCPCS: 93005; 99212 ==

== ENCOUNTER 2024-11-12 10:17 | Outpatient (AMB) | payer MEDICARE, MEDICAID, SELFPAY ==
--- NOTE | 2024-11-12 10:59 | MHC.OFFVIS ---
Vital Signs 11/12/24 11:00 Weight 125 lb BP 94/53 L Blood Pressure Location Rt brachial Position Sitting Respiration 16 Pulse 65 Pulse Source Pulse Oximeter Pulse Oximetry (%) 97 Oxygen Delivery Method Room Air Intake Visit Reasons: F/U R hip injection Social Insurance Administrator Required: No Allergies No Known Allergies Allergy (Verified 11/12/24 10:59) HPI Comments Details: Mihaela is very pleasant 74 years old female who presents in my office to repeated intra-articular right hip steroid injection. She reports again 45 days of 100% pain relief, better mobility better activities of daily living better social interactions. Before me she received injection into the right hip joint by Dr. Villalta which resulted in excellent pain relief as well. I explained to the patient that I do not mind to continue those injections as long as there not repeated more often than once in 4 months. When patient's pain will come back I will schedule yet another appointment for injection. She will give us a call and we will schedule her for the injection. nona [facility] Medical History Encounter for colorectal cancer screening using Cologuard test (~11/15/21) Ischemic cardiomyopathy Presence of automatic (implantable) cardiac defibrillator Unspecified systolic (congestive) heart failure Borderline hypercholesterolemia Atherosclerotic heart disease of [place] coronary artery without angina pectoris Arthritis of right hip Type 2 diabetes mellitus with diabetic polyneuropathy Surgical History History of implantable cardioverter-defibrillator (ICD) insertion History of heart artery stent History of placement of internal cardiac defibrillator History of cardiac defibrillator placement Family History Father Medical history unknown Mother Medical history unknown Social History Housing: Apartment Alcohol intake: never Patient Tobacco Use Status: Never used Tobacco Tobacco use type: Cigarette e-Cigarette/Vaping Use: Never Used Second Hand Smoke Exposure: No Advance Directives Date on File: 10/24/22 service: No Current occupational status: retired Cognitive needs: Yes (cane) Hearing needs: No Vision needs: Yes (glasses) Review of Systems Const All systems reviewed & are unremarkable except as noted in HPI and below ENT Reports Normal hearing present Neuro Reports Normal hearing present, Denies confusion and Denies Sensory deficit (Neuro) Psych Denies confusion Physical Exam Vital Signs: Last Vital Signs Pulse 65 11/12/24 11:00 Resp 16 11/12/24 11:00 BP 94/53 L 11/12/24 11:00 Pulse Ox 97 11/12/24 11:00 Oxygen Delivery Method Room Air 11/12/24 11:00 Const General: comfortable, no acute distress, well developed, alert and awake; No confusion Orientation/consciousness: No confusion Eyes Pupils: Equal, round and reactive pupils present EOM: EOMs intact bilaterally Chest Chest palpation & inspection: normal inspection of the chest Resp Effort & Inspection: normal respiratory effort, able to speak in complete sentences, normal respiratory pattern, no audible wheezes and no cough Cardio Jugular venous distension: no JVD Neuro General: No confusion Cranial nerves: Yes Equal, round and reactive pupils present and Yes Normal hearing present Sensory Exam: No Sensory deficit (Neuro) Extrem Other: Crepitus on palpation on the right knee. Tenderness of palpation of the right knee. Lateral rotation of the hip and medial rotation of the hip causes severe discomfort in the groin. Range of motion of the right hip is significantly diminished. Psych Speech and movement: Normal speech and movement present Affect: normal affect Attitude: cooperative Thought process: Normal thought process present Thought content: Normal thought content present Insight: Good insight present (Psych) Judgement: Good judgement present (Psych) Assessment & Plan Assessment & Plan (1) Type 2 diabetes mellitus with diabetic polyneuropathy: Code(s): E11.42 - Type 2 diabetes mellitus with diabetic polyneuropathy Category: Medical Qualifiers: Diabetes mellitus [place] [employer] supervisor insulin use: without intermediate use Qualified Code(s): E11.42 - Type 2 diabetes mellitus with diabetic polyneuropathy (2) Arthritis of right hip: Code(s): M16.11 - Unilateral primary osteoarthritis, right hip Category: Medical (3) Osteoarthritis of right knee: Code(s): M17.11 - Unilateral primary osteoarthritis, right knee Category: Medical Plan: The hip injection performed by Dr. Villalta resulted in excellent 100% pain improvement. Three years after that patient came to me and I repeated the procedure. So far she reported 100% pain improvement/pain relief 45 days after the procedure. I recommended her to give us a call when her pain will come back and we can schedule appointment for the injection. (4) Unspecified systolic (congestive) heart failure: Code(s): I50.20 - Unspecified systolic (congestive) heart failure Category: Medical Qualifiers: Heart failure chronicity: unspecified Qualified Code(s): I50.20 - Unspecified systolic (congestive) heart failure Plan Plan as above. Coding Level of Care Code Est Pt Level 3 (81051) Diagnoses Type 2 diabetes mellitus with diabetic polyneuropathy, without long-term current use of insulin E11.42 Diabetes mellitus [place] [employer] insulin use: without intermediate use Arthritis of right hip M16.11 Osteoarthritis of right knee M17.11 Systolic congestive heart failure, unspecified HF chronicity I50.20 Heart failure chronicity: unspecified
[2024-11-12 11:00] VITALS: BP 94/53; PULSE 65; RESP 16; O2SAT 97
== END 2024-11-12 11:42 | disposition home or self-care (01) ==
LOC: HO.PMC 10:18
PROVIDERS: PCP Internal Medicine; Visit Provider Anesthesiology
DX: E11.42 Type 2 diabetes mellitus with diabetic polyneuropathy (principal); M16.11 Unilateral primary osteoarthritis, right hip; M17.11 Unilateral primary osteoarthritis, right knee; I50.20 Unspecified systolic (congestive) heart failure
CPT/HCPCS: 99213

== ENCOUNTER → 2024-11-12 10:17 | Outpatient (BNVA) | payer MEDICARE, MEDICAID, SELFPAY | PROVIDERS: PCP Internal Medicine; Visit Provider Anesthesiology | DX: M17.11 Unilateral primary osteoarthritis, right knee (principal); M16.11 Unilateral primary osteoarthritis, right hip; I50.20 Unspecified systolic (congestive) heart failure; E11.42 Type 2 diabetes mellitus with diabetic polyneuropathy | CPT/HCPCS: 99212 ==

== ENCOUNTER → 2024-11-20 23:59 | Outpatient (BNV) | payer MEDICARE, MEDICAID, SELFPAY ==
--- NOTE | 2024-11-25 11:37 | A.OFFVIS_ITS ---
Intake Visit Reasons: Remote HF check- [employer] Allergies No Known Allergies Allergy (Verified 11/12/24 10:59) [facility] Medical History Encounter for colorectal cancer screening using Cologuard test (~11/15/21) Ischemic cardiomyopathy Presence of automatic (implantable) cardiac defibrillator Unspecified systolic (congestive) heart failure Borderline hypercholesterolemia Atherosclerotic heart disease of [place] coronary artery without angina pectoris Arthritis of right hip Type 2 diabetes mellitus with diabetic polyneuropathy Surgical History History of implantable cardioverter-defibrillator (ICD) insertion History of heart artery stent History of placement of internal cardiac defibrillator History of cardiac defibrillator placement Family History Father Medical history unknown Mother Medical history unknown Social History Housing: Apartment Alcohol intake: never Patient Tobacco Use Status: Never used Tobacco Tobacco use type: Cigarette e-Cigarette/Vaping Use: Never Used Second Hand Smoke Exposure: No Advance Directives Date on File: 10/24/22 service: No Current occupational status: retired Cognitive needs: Yes (cane) Hearing needs: No Vision needs: Yes (glasses) Office Procedures Cardiac Device Check Cardiac Device Check Details: Date of service- 11/20/2024; based on impedance data and physiological variables, there is no evidence of worsening congestive heart failure. [id number] Cardiac Device Interrogation, cardio physiologic monitor Procedure code (CPT) selection complete Assessment & Plan Assessment & Plan (1) Presence of automatic (implantable) cardiac defibrillator: Code(s): Z95.810 - Presence of automatic (implantable) cardiac defibrillator Category: Medical (2) Ischemic cardiomyopathy: Code(s): I25.5 - Ischemic cardiomyopathy Category: Medical Plan x Coding Level of Care Code Complex EM visit Add On G2211 Diagnoses Presence of automatic (implantable) cardiac defibrillator Z95.810 Ischemic cardiomyopathy I25.5 CPT Codes Cardiac Device Check - Cardiac Device 15: [id number] Cardiac Device Interrogation, cardio physiologic monitor ([id number])
== END ==
PROVIDERS: PCP Internal Medicine; Visit Provider Internal Medicine
DX: I25.5 Ischemic cardiomyopathy (principal); Z95.810 Presence of automatic (implantable) cardiac defibrillator
CPT/HCPCS: 93297

== ENCOUNTER → 2025-01-05 23:59 | Outpatient (BNV) | payer MEDICARE, MEDICAID, SELFPAY ==
--- NOTE | 2025-01-07 13:39 | A.OFFVIS_ITS ---
Intake Visit Reasons: Remote HF check- Biotronik Allergies No Known Allergies Allergy (Verified 11/12/24 10:59) [facility] Medical History Encounter for colorectal cancer screening using Cologuard test (~11/15/21) Ischemic cardiomyopathy Presence of automatic (implantable) cardiac defibrillator Unspecified systolic (congestive) heart failure Borderline hypercholesterolemia Atherosclerotic heart disease of [place] coronary artery without angina pectoris Arthritis of right hip Type 2 diabetes mellitus with diabetic polyneuropathy Surgical History History of implantable cardioverter-defibrillator (ICD) insertion History of heart artery stent History of placement of internal cardiac defibrillator History of cardiac defibrillator placement Family History Father Medical history unknown Mother Medical history unknown Social History Housing: Apartment Alcohol intake: never Patient Tobacco Use Status: Never used Tobacco Tobacco use type: Cigarette e-Cigarette/Vaping Use: Never Used Second Hand Smoke Exposure: No Advance Directives Date on File: 10/24/22 service: No Current occupational status: retired Cognitive needs: Yes (cane) Hearing needs: No Vision needs: Yes (glasses) Office Procedures Cardiac Device Check Cardiac Device Check Details: Date of service- 01/05/2025; based on impedance data and physiological variables, there is no evidence of worsening congestive heart failure. [id number] Cardiac Device Interrogation, cardio physiologic monitor Procedure code (CPT) selection complete Assessment & Plan Assessment & Plan (1) Presence of automatic (implantable) cardiac defibrillator: Code(s): Z95.810 - Presence of automatic (implantable) cardiac defibrillator Category: Medical (2) Ischemic cardiomyopathy: Code(s): I25.5 - Ischemic cardiomyopathy Category: Medical Plan x Coding Level of Care Code Procedure Only Diagnoses Presence of automatic (implantable) cardiac defibrillator Z95.810 Ischemic cardiomyopathy I25.5 CPT Codes Cardiac Device Check - Cardiac Device 15: [id number] Cardiac Device Interrogation, cardio physiologic monitor ([id number])
== END ==
PROVIDERS: PCP Internal Medicine; Visit Provider Internal Medicine
DX: I25.5 Ischemic cardiomyopathy (principal); Z95.810 Presence of automatic (implantable) cardiac defibrillator
CPT/HCPCS: 93297

== ENCOUNTER → 2025-01-11 23:59 | Outpatient (BNV) | payer MEDICARE, MEDICAID, SELFPAY ==
--- NOTE | 2025-01-17 15:52 | A.OFFVIS_ITS ---
Intake Visit Reasons: Remote ICD check- Biotronik Allergies No Known Allergies Allergy (Verified 11/12/24 10:59) [facility] Medical History Encounter for colorectal cancer screening using Cologuard test (~11/15/21) Ischemic cardiomyopathy Presence of automatic (implantable) cardiac defibrillator Unspecified systolic (congestive) heart failure Borderline hypercholesterolemia Atherosclerotic heart disease of [place] coronary artery without angina pectoris Arthritis of right hip Type 2 diabetes mellitus with diabetic polyneuropathy Surgical History History of implantable cardioverter-defibrillator (ICD) insertion History of heart artery stent History of placement of internal cardiac defibrillator History of cardiac defibrillator placement Family History Father Medical history unknown Mother Medical history unknown Social History Housing: Apartment Alcohol intake: never Patient Tobacco Use Status: Never used Tobacco Tobacco use type: Cigarette e-Cigarette/Vaping Use: Never Used Second Hand Smoke Exposure: No Advance Directives Date on File: 10/24/22 service: No Current occupational status: retired Cognitive needs: Yes (cane) Hearing needs: No Vision needs: Yes (glasses) Office Procedures Cardiac Device Check Cardiac Device Check Details: Date of service 01/12/2025; Battery life 73%; normal lead parameters; no treated VT/VF; normal ICD function. [id number] Cardiac Interrogation, implant defibrillator w/interim Procedure code (CPT) selection complete Assessment & Plan Assessment & Plan (1) Presence of automatic (implantable) cardiac defibrillator: Code(s): Z95.810 - Presence of automatic (implantable) cardiac defibrillator Category: Medical (2) Ischemic cardiomyopathy: Code(s): I25.5 - Ischemic cardiomyopathy Category: Medical Plan x Coding Level of Care Code Procedure Only Diagnoses Presence of automatic (implantable) cardiac defibrillator Z95.810 Ischemic cardiomyopathy I25.5 CPT Codes Cardiac Device Check - Cardiac Device 13: [id number] Cardiac Interrogation, implant defibrillator w/interim ([id number])
== END ==
PROVIDERS: PCP Internal Medicine; Visit Provider Internal Medicine
DX: I25.5 Ischemic cardiomyopathy (principal); Z95.810 Presence of automatic (implantable) cardiac defibrillator
CPT/HCPCS: 93295

== ENCOUNTER 2025-02-02 08:45 | Outpatient (AMB) | payer MEDICARE, MEDICAID, SELFPAY ==
--- NOTE | 2025-02-02 08:55 | AM.OFFVISNUR ---
Intake Visit Reasons: Flue shot Allergies No Known Allergies Allergy (Verified 11/12/24 10:59) Office Procedures Flu Questionnaire Does the patient have a severe egg allergy?: No Does the patient have severe life threatening allergies?: No Does the patient have a fever or illness today?: No Has the patient ever had Guillain-Sterling Syndrome?: No Has the patient ever had any past reaction to a flu shot?: No Immunizations Fluarix [id number] (PF) 45 mcg (15 mcg x 3)/0.5 mL IM syringe Performing Provider: Carlos Garg MD [facility] Administered by: Zenaida Guevara LPN on 02/02/25 08:55 Dose Route Admin Location Dispensed Lot Number Expiration Date [facility] Track Leader 0.5 mL IM Left Deltoid 0.5 mL [id number] 09/14/25 05260-848-55 [employer] VIS Given Date VIS Provided VIS Publication Date 02/02/25 Single Vaccine 24 Eligibility Eligibility Date Funding Source Not [facility] Eligible 02/02/25 Private Assessment & Plan Assessment & Plan Orders: Orders Influenza [id number] Immunization Today Z23 - Encounter for immunization Coding
== END 2025-02-02 08:56 | disposition home or self-care (01) ==
LOC: HO.HMCH 08:46
PROVIDERS: PCP Internal Medicine; Visit Provider Internal Medicine
DX: Z23 Encounter for immunization (principal)

== ENCOUNTER → 2025-02-02 08:45 | Outpatient (BNVA) | payer MEDICARE, MEDICAID, SELFPAY | PROVIDERS: PCP Internal Medicine; Visit Provider Internal Medicine | DX: Z23 Encounter for immunization (principal) | CPT/HCPCS: 90471; 90656 ==

== ENCOUNTER → 2025-02-16 09:22 | Outpatient (BNV) | payer MEDICARE, MEDICAID, SELFPAY | PROVIDERS: PCP Internal Medicine; Visit Provider Internal Medicine | DX: I50.9 Heart failure, unspecified (principal); Z95.810 Presence of automatic (implantable) cardiac defibrillator | CPT/HCPCS: 93297 ==

== ENCOUNTER 2025-02-18 10:10 | Outpatient (AMB) | payer MEDICARE, MEDICAID, SELFPAY ==
--- NOTE | 2025-02-18 10:24 | A.OFFPC_ITS ---
Vital Signs 02/18/25 10:26 Height 5 ft 4 in Weight 134 lb BMI 23.0 BP 110/60 Blood Pressure Location Lt brachial Position Sitting Pulse 71 Pulse Source Pulse Oximeter Temp 96.9 F Temp Source Temporal Artery Scan Pulse Oximetry (%) 99 Oxygen Delivery Method Room Air Intake Visit Reasons: Follow up 3 months reschedule Intake Note: Patient is here to follow up on DM, Hypercholesterolemia, HTN, OA. Hogshead Head Matcher Required: No Manufacturing Systems Engineer: Not Required per policy Accompanied by: Self / Same As Patient Allergies No Known Allergies Allergy (Verified 02/18/25 11:31) Medication List - Last Reconciled 02/18/25 by Carlos Garg MD aspirin (Adult Low Dose Aspirin) 81 mg PO DAILY blood sugar diagnostic ([employer] Ultra Test strips) As directed blood-glucose meter ([employer] Ultra2 Meter) As directed cane Need for quad cane codeine-guaifenesin 10-100 mg/5 mL 5 mL PO Q6H PRN cyclobenzaprine 10 mg PO BEDTIME furosemide 20 mg PO DAILY gabapentin (Neurontin) 300 mg PO BID 90 days lancets ([employer] Delica Lancets) USE TO TEST DAILY lisinopril 10 mg PO DAILY metformin ER 750 mg PO BID metoprolol succinate ER 25 mg PO BID rosuvastatin 40 mg PO DAILY spironolactone 25 mg PO DAILY Tobacco use date assessed: 02/18/25 Fall risk assessment: No Falls in past year Last assessed Fall Risk: 02/18/25 Dental Screening Dental Screen Date: 05/21/24 HPI HPI Comments History of Present Illness Details History of Present Illness - The patient is a 74-year-old female pr esenting for management of a persistent cough. - She had a cold from late December throu gh January, and although the cold has resolved, she has been left with a persistent pecking cough. - The cough is particularly bothersome a t night, causing sleep disruption, and also occurs at times during the day. - Regarding her diabetes, the patient st ates her blood glucose has been fine, around 120, and recent lab results showed a hemoglobin A1C of 6.8. - She is taking cyclobenzaprine. - Her mobility requires the use of a can e. - She reports occasional shortness of br eath after walking inside from outdoors, which requires her to sit down. - She has received her influenza vaccina tion. Social History - Functional Status: The patient is ambu latory with the use of a cane. Results - Labs: Hemoglobin A1c is 6.8%. - Patient reports blood sugar is about 1 20. [facility] Medical History Encounter for colorectal cancer screening using Cologuard test (~11/15/21) Ischemic cardiomyopathy Presence of automatic (implantable) cardiac defibrillator Unspecified systolic (congestive) heart failure Borderline hypercholesterolemia Atherosclerotic heart disease of [place] coronary artery without angina pectoris Arthritis of right hip Type 2 diabetes mellitus with diabetic polyneuropathy Surgical History History of implantable cardioverter-defibrillator (ICD) insertion History of heart artery stent History of placement of internal cardiac defibrillator History of cardiac defibrillator placement Family History Father Medical history unknown Mother Medical history unknown Social History Housing: Apartment Alcohol intake: never Patient Tobacco Use Status: Never used Tobacco Tobacco use type: Cigarette e-Cigarette/Vaping Use: Never Used Second Hand Smoke Exposure: No Advance Directives Date on File: 10/24/22 service: No Current occupational status: retired Cognitive needs: Yes (cane) Hearing needs: No Vision needs: Yes (glasses) Questionnaire Thrive Questionnaire Date Thrive assessed: 07/09/24 I am a: Patient What is your living situation today?: I have a steady place to live Within the past 12 months, did the food you bought not last and you didn't have the money to get more?: I choose not to answer this question Within the past 12 months, did you worry whether your food would run out before you got money to buy more?: I choose not to answer this question Do you have trouble paying for medicines?: No Do you have trouble getting transportation to medical appointments?: No Do you have trouble paying your heating and electricity bill?: No Do you have trouble taking care of your child, family member or friend?: No Do you have trouble with day-to-day activities such as bathing, preparing meals, shopping, managing finances, etc.?: No Are you currently unemployed and looking for a job?: Yes Are you interested in more education?: No Please select the resources that you would like help with: None Currently or been in a relationship where the following occur: I choose not to answer THRIVE Score: 0 DIANA-7 AMB Questionnaire DIANA-7 Date DIANA - 7 assessed: 07/09/24 Source: Developed by Drs. Alonzo Hays, Cordelia Irby, Arthur Aden and colleagues, with an educational maciej from [employer]. Review of Systems Narrative Review of Systems - Respiratory: Reports a persistent cough, which is worse at night, for the last month. - Reports occasional dyspnea on exertion after walking. - Denies shortness of breath at rest or paroxysmal nocturnal dyspnea. - Neurological: Reports sleep disturbance secondary to nocturnal cough. - Denies issues with sleeping when not coughing. - HEENT: Reports good vision. - Musculoskeletal: Reports pain in her thigh when sitting up. Physical exam (Primary Care) Vital Signs: Last Vital Signs Temp 96.9 F 02/18/25 10:26 Pulse 71 02/18/25 10:26 BP 110/60 02/18/25 10:26 Pulse Ox 99 02/18/25 10:26 Oxygen Delivery Method Room Air 02/18/25 10:26 BMI result Body Mass Index 23.0 Tobacco/Smoking Status: Tobacco use Status Tobacco use date assessed 02/18/25 02/18/25 10:35 Patient Tobacco Use Status Never used Tobacco 02/18/25 10:35 Tobacco use type Cigarette 02/18/25 10:35 e-Cigarette/Vaping Use Never Used 02/18/25 10:35 Thrive Assessment: Date of Thrive Assessment Date Thrive assessed 07/09/24 02/18/25 10:35 Currently or been in a relationship where the following occur: I choose not to answer Narrative Physical Exam General: Appearance normal, both eyes and all related structures Nutritional Appearance: Well nourished Orientation/consciousness: Patient oriented x3 Limitations: No limitations Head: Normal to inspection Neck: Normal visual inspection Chest: Normal palpation of entire chest wall Respiratory: Normal respiratory effort, but patient reports a persistent cough, especially at night Neurology: Patient oriented x3 Results AMB Hemoglobin A1c AMB Hemoglobin A1c 6.8 % Last Edit by ARMIDA Bergeron on 02/18/25 10:38 Results Reviewed Results Reviewed: Laboratory Last Values Hgb A1c (Clinic) 6.8 % (4.0-6.0) H 02/18/25 10:24 Coding Level of Care Code Est Pt Level 4 (60034) Complex visit Add On G2211 Diagnoses Type 2 diabetes mellitus with diabetic polyneuropathy, without long-term current use of insulin E11.42 Diabetes mellitus rat exterminator insulin use: without senior living use Assessment & Plan Assessment & Plan (1) Type 2 diabetes mellitus with diabetic polyneuropathy: Code(s): E11.42 - Type 2 diabetes mellitus with diabetic polyneuropathy Category: Medical Qualifiers: Diabetes mellitus senior living insulin use: without rat exterminator use Qualified Code(s): E11.42 - Type 2 diabetes mellitus with diabetic polyneuropathy Plan Plan - A prescription for a cough medicine containing codeine will be sent to the pharmacy to be taken at night to help suppress the cough. - The patient will continue her current medications for diabetes, as her blood sugar levels are well controlled with an A1c of 6.8. - The patient will follow up in three months. Discussion Notes I addressed the patient's persistent cough and informed her that I am prescribing a cough medicine with a small amount of codeine. I advised her to take it at night for a few days to help with the cough. We reviewed her recent lab results, noting her A1c of 6.8 indicates good glycemic control, and I recommended she continue her current medications. I also reassured her that her blood pressure is good. We agreed she will return for a follow-up visit in three months. Patient Instructions - I have sent a prescription for cough medicine to your pharmacy. - Please take it at night for a few days to help with your cough. - Continue taking all your current medications as prescribed, especially for your diabetes, as your blood sugar is under good control. - Your blood pressure is good. - Please schedule an appointment to see me again in three months. Orders: Orders AMB Hemoglobin A1c Today E11.42 - Type 2 diabetes mellitus with diabetic polyneuropathy Medications: New codeine-guaifenesin 10-100 mg/5 mL 5 mL PO Q6H PRN 120 mL 0RF allergy symptoms
[2025-02-18 10:26] VITALS: BP 110/60; PULSE 71; TEMP 36.1; O2SAT 99; BMI 23.0
== END 2025-02-18 10:59 | disposition home or self-care (01) ==
LOC: HO.HMCH 10:11
PROVIDERS: PCP Internal Medicine; Visit Provider Internal Medicine
DX: E11.42 Type 2 diabetes mellitus with diabetic polyneuropathy (principal)

== ENCOUNTER → 2025-02-18 10:10 | Outpatient (BNVA) | payer MEDICARE, MEDICAID, SELFPAY | PROVIDERS: PCP Internal Medicine; Visit Provider Internal Medicine | DX: R05.3 Chronic cough (principal); E11.42 Type 2 diabetes mellitus with diabetic polyneuropathy | CPT/HCPCS: 83036; 99212 ==